=== PATIENT | female | born 1935 | race Caucasian/White ===

== ENCOUNTER 2017-02-21 16:40 | Inpatient (IN) | payer OTHER ==
--- NOTE | 2017-02-21 17:12 | EDPHY ---
H & P Stated Complaint: pt concerned for hypertension, no hx of, no s/s or other complaints HPI/ROS: CHIEF COMPLAINT: High blood pressure and lightheaded HISTORY OF PRESENT ILLNESS: This is a pleasant 81-year-old female presenting to the emergency department complaining of high blood pressure. Patient states she went to [facility] this morning had her blood pressure checked which was 196/84, denies any history of hypertension. patient also reports concerning intermittent episodes of feeling lightheadedness over the past couple of days she did start on new medication oxybutynin 5 mg and zolpidem 5 mg x 1 1/2 wks ago. Patient denies any shortness of breath no headache no blurred vision no nausea vomiting or diarrhea REVIEW OF SYSTEMS: Constitutional: No fever, no chills. No changes in normal ADLs Eyes: No discharge. No blurred vision ENT: No sore throat. Cardiovascular: No chest pain, no palpitations. Respiratory: No cough, no shortness of breath. Gastrointestinal: No abdominal pain, no vomiting. Genitourinary: No hematuria. Urinary frequency Musculoskeletal: No back pain. Skin: No rashes. Neurological: No headache. Intermittent episodes of lightheadedness Source: Patient, Family - Personal History Current Tetanus/Diphtheria Vaccine: Unsure Current Tetanus Diphtheria and Acellular Pertussis (TDAP): Unsure - Medical/Surgical History Hx Asthma: No Hx Chronic Respiratory Disease: No Hx Diabetes: No Hx Cardiac Disease: No Hx Renal Disease: No Hx Cirrhosis: No Hx Alcoholism: No Hx HIV/AIDS: No Hx Splenectomy or Spleen Trauma: No Other PMH: denies. bladder hyperactivity - Social History Smoking Status: Never smoked - Physical Exam Exam: General Appearance: Alert, no distress. Eyes: Pupils equal and round no pallor or injection. ENT, Mouth: Mucous membranes moist. Respiratory: There are no retractions, lungs are clear to auscultation. Cardiovascular: Regular rate and rhythm. Gastrointestinal: Abdomen is soft and nontender, no masses, bowel sounds normal. Neurological: No focal deficits. Ambulatory without gait disturbance Skin: Warm and dry, no rashes. Musculoskeletal: Neck is supple nontender. Extremities: symmetrical, full range of motion. Psychiatric: Patient is oriented X 3, there is no agitation. Constitutional: Initial Vital Signs Temperature (C) 36.5 C 02/21/17 16:45 Heart Rate 68 02/21/17 16:45 Respiratory Rate 16 02/21/17 16:45 Blood Pressure 190/98 H 02/21/17 16:45 O2 Sat (%) 97 02/21/17 16:45 O2 Delivery Mode Room Air Allergies/Adverse Reactions: influenza virus vaccine, specific [Influenza Virus Vacc,Specific] Allergy ( Verified 08/10/13 22:37) Home Medications: Medication Instructions Recorded Ambien 02/21/17 Oxybutynin 02/21/17 Medical Decision Making ED Course/Re-evaluation: Discussed ED plan of care with patient: EKG, CBC, BMP, troponin, UA. 174: EKG impression 12 lead sinus rhythm 1929: Discussed results with patient recommendation the patient admitted due to sodium 114, i-STAT for sodium 120 urine sodium and urine osmolality added. Patient did report that she has had an increase in thirst increasing overactive bladder that is why her primary care physician placed her on oxybutynin 1939: Spoke with Dr. Dey patient admitted to [facility] for hyponatremia. Discussed this plan with patient and family Differential Diagnosis: Other differential diagnosis considered but not limited to electrolyte imbalance , abnormal EKG, and generalized weakness - Data Points Laboratory Results: Laboratory Results 02/21/17 18:24 02/21/17 18:24 02/21/17 02/21/17 02/21/17 19:13 18:24 18:24 WBC 8.09 10^3/uL 10^3/uL (3.80-9.50) RBC 4.14 10^6/uL L 10^6/uL (4.18-5.33) Hgb 11.7 g/dL L g/dL (12.6-16.3) POC Hgb 14.6 gm/dL gm/dL (12.6-16.3) Hct 33.3 % L % (38.0-47.0) POC Hct 43 % % (38-47) MCV 80.4 fL L fL (81.5-99.8) MCH 28.3 pg pg (27.9-34.1) MCHC 35.1 g/dL g/dL (32.4-36.7) RDW 13.2 % % (11.5-15.2) Plt Count 224 10^3/uL 10^3/uL (150-400) MPV 11.7 fL fL (8.7-11.7) Neut % (Auto) 71.0 % % (39.3-74.2) Lymph % (Auto) 14.1 % L % (15.0-45.0) Ellsworth % (Auto) 12.9 % % (4.5-13.0) Eos % (Auto) 0.9 % % (0.6-7.6) Baso % (Auto) 0.9 % % (0.3-1.7) Nucleat RBC Rel Count 0.0 % % (0.0-0.2) Absolute Neuts (auto) 5.75 10^3/uL 10^3/uL (1.70-6.50) Absolute Lymphs (auto) 1.14 10^3/uL 10^3/uL (1.00-3.00) Absolute Monos (auto) 1.04 10^3/uL H 10^3/uL (0.30-0.80) Absolute Eos (auto) 0.07 10^3/uL 10^3/uL (0.03-0.40) Absolute Basos (auto) 0.07 10^3/uL 10^3/uL (0.02-0.10) Absolute Nucleated RBC 0.00 10^3/uL 10^3/uL (0-0.01) Immature Gran % 0.2 % % (0.0-1.1) Immature Gran # 0.02 10^3/uL 10^3/uL (0.00-0.10) POC Sodium 120 mEq/L L mEq/L (134-144) Sodium 114 mEq/L L* mEq/L (134-144) POC Potassium 3.9 mEq/L mEq/L (3.3-5.0) Potassium 4.0 mEq/L mEq/L (3.5-5.2) POC Chloride 83 mEq/L L mEq/L (97-110) Chloride 85 mEq/L L mEq/L (97-110) Carbon Dioxide 20 mEq/l L mEq/l (22-31) Anion Gap 9 mEq/L mEq/L (8-16) POC BUN 4 mg/dL L mg/dL (7-23) BUN 6 mg/dL L mg/dL (7-23) Creatinine 0.6 mg/dL mg/dL (0.6-1.0) POC Creatinine 0.5 mg/dL L mg/dL (0.6-1.0) Estimated GFR > 60 Glucose 89 mg/dL mg/dL (70-100) POC Glucose 101 mg/dL H mg/dL (70-100) Calcium 8.9 mg/dL mg/dL (8.5-10.4) Total Bilirubin 1.2 mg/dL mg/dL (0.1-1.4) AST 35 IU/L IU/L (14-46) ALT 36 IU/L IU/L (9-52) Alkaline Phosphatase 102 IU/L IU/L (38-126) Troponin I < 0.012 ng/mL ng/mL (0-0.034) Total Protein 6.9 g/dL g/dL (6.3-8.2) Albumin 4.1 g/dL g/dL (3.5-5.0) Urine Color Urine Appearance Urine pH Ur Specific Tiger Urine Protein Urine Ketones Urine Blood Urine Nitrate Urine Bilirubin Urine Urobilinogen Ur Leukocyte Esterase Urine Osmolality Ur Random Sodium Urine Glucose 02/21/17 02/21/17 17:00 17:00 WBC RBC Hgb POC Hgb Hct POC Hct MCV MCH MCHC RDW Plt Count MPV Neut % (Auto) Lymph % (Auto) Ellsworth % (Auto) Eos % (Auto) Baso % (Auto) Nucleat RBC Rel Count Absolute Neuts (auto) Absolute Lymphs (auto) Absolute Monos (auto) Absolute Eos (auto) Absolute Basos (auto) Absolute Nucleated RBC Immature Gran % Immature Gran # POC Sodium Sodium POC Potassium Potassium POC Chloride Chloride Carbon Dioxide Anion Gap POC BUN BUN Creatinine POC Creatinine Estimated GFR Glucose POC Glucose Calcium Total Bilirubin AST ALT Alkaline Phosphatase Troponin I Total Protein Albumin Urine Color PALE YELLOW Urine Appearance CLEAR Urine pH 7.0 (5.0-7.5) Ur Specific Tiger 1.002 (1.002-1.030) Urine Protein NEGATIVE (NEGATIVE) Urine Ketones NEGATIVE (NEGATIVE) Urine Blood NEGATIVE (NEGATIVE) Urine Nitrate NEGATIVE (NEGATIVE) Urine Bilirubin NEGATIVE (NEGATIVE) Urine Urobilinogen NEGATIVE EU EU (0.2-1.0) Ur Leukocyte Esterase NEGATIVE (NEGATIVE) Urine Osmolality 960 mosmo/kg H mosmo/kg (300-900) Ur Random Sodium 17 mEq/L L mEq/L (30-90) Urine Glucose NEGATIVE (NEGATIVE) Point of Care Test Results: 02/21/17 19:13 POC Sodium 120 L POC Potassium 3.9 POC Chloride 83 L POC BUN 4 L POC Creatinine 0.5 L POC Glucose 101 H Departure - Departure Disposition: [facility] Inpatient Acute Clinical Impression: Hyponatremia Condition: Good
[2017-02-21 17:19] LABS: COLOR PALE YELLOW; LEUKOCYTE ESTERASE,URINE NEGATIVE (NEGATIVE); NITRITE,URINE NEGATIVE (NEGATIVE)
--- NOTE | 2017-02-21 17:47 | CPEKG ---
Heart Rate: 64 RR Interval: 938 P-R Interval: 148 QRSD Interval: 96 QT Interval: 416 QTC Interval: 430 P Savannah: 77 QRS Savannah: 60 T Wave Savannah: 51 EKG Severity - NORMAL ECG - EKG Impression: SINUS RHYTHM Electronically Signed By: Juan J Hernandez 21-Feb-2017 18:53:59
[2017-02-21 18:37] LABS: % IMMATURE GRANULYOCYTES 0.2 % (0.0-1.1); ABSOLUTE IMMATURE GRANULOCYTES 0.02 10^3/uL (0.00-0.10); ADD DIFF? NO; ADD MORPH? NO; ADD SCAN? NO; ATYPICAL LYMPHOCYTE FLAG 0 (0-99); FRAGMENT RBC FLAG 0 (0-99); HEMATOCRIT 33.3 % (38.0-47.0); HEMOGLOBIN 11.7 g/dL (12.6-16.3); LEFT SHIFT FLG 0 (0-99); LIPEMIA HEMOLYSIS FLAG 90 (0-99); MEAN CELL HEMOGLOBIN 28.3 pg (27.9-34.1); MEAN CELL HEMOGLOBIN CONCENTR. 35.1 g/dL (32.4-36.7); MEAN CELL VOLUME 80.4 fL (81.5-99.8); MEAN PLATELET VOLUME 11.7 fL (8.7-11.7); PLATELET CLUMPS FLAG 0 (0-99); PLATELET COUNT 224 10^3/uL (150-400); RED BLOOD CELL COUNT 4.14 10^6/uL (4.18-5.33); RED CELL DISTRIBUTION WIDTH 13.2 % (11.5-15.2)
[2017-02-21 18:45] LABS: ALANINE AMINOTRANSFERASE 36 IU/L (9-52); ALBUMIN 4.1 g/dL (3.5-5.0); ALKALINE PHOSPHATASE 102 IU/L (38-126); ANION GAP 9 mEq/L (8-16); ASPARTATE AMINOTRANSFERASE 35 IU/L (14-46); BILIRUBIN,TOTAL 1.2 mg/dL (0.1-1.4); CALCIUM 8.9 mg/dL (8.5-10.4); CARBON DIOXIDE 20 mEq/l (22-31); CHLORIDE 85 mEq/L (97-110); CREATININE 0.6 mg/dL (0.6-1.0); GLOMERULAR FILTRATION RATE > 60; GLUCOSE 89 mg/dL (70-100); TOTAL PROTEIN 6.9 g/dL (6.3-8.2)
[2017-02-21 18:52] LABS: SODIUM 114 mEq/L (134-144)
[2017-02-21 18:56] LABS: TROPONIN I < 0.012 ng/mL (0-0.034)
[2017-02-21 23:14] LABS: ANION GAP 9 mEq/L (8-16); CALCIUM 9.3 mg/dL (8.5-10.4); CARBON DIOXIDE 22 mEq/l (22-31); CHLORIDE 88 mEq/L (97-110); CREATININE 0.6 mg/dL (0.6-1.0); GLOMERULAR FILTRATION RATE > 60; GLUCOSE 89 mg/dL (70-100); POTASSIUM 3.8 mEq/L (3.5-5.2)
[2017-02-21] MEDS ORDERED: ONDANSETRON 4 MG/2 ML VIAL IVP PRN (23:37)
[2017-02-21] MEDS ORDERED: ONDANSETRON DISINTEGRATING 4 MG TAB PO PRN (23:37)
[2017-02-21 23:48] LABS: SODIUM 119 mEq/L (134-144)
[2017-02-21] MEDS: hydrALAZINE 20 MG/ML VIAL IVP PRN (23:57)
[2017-02-22] MEDS: ACETAMINOPHEN 325 MG TAB PO PRN ×3 (00:02→22:41)
[2017-02-22] MEDS: NS 1,000 ML IV SCH ×2 (00:33→20:43)
[2017-02-22] MEDS: traZODone 50 MG TAB PO PRN ×2 (01:10→21:31)
--- NOTE | 2017-02-22 01:44 | GHP ---
[f rep st] HISTORY AND PHYSICAL DATE OF ADMISSION: 02/21/2017 CHIEF COMPLAINT: High blood pressure. HISTORY OF PRESENT ILLNESS: This is an 81-year-old female, who does not really have much in the way of chronic medical problems. Apparently, she has been under a lot of stress and has not been sleep ing well, and has been urinating a lot at night. She was started on oxybutynin and Ambien about a w habematolel and a half ago. She went to the pharmacist today and had her blood pressure checked, and it was high at 196/84, and she was told to come to the emergency department. She is feeling a little bit lightheaded, but otherwise has no other complaints. She does drink a large amount of water in the m orning, about 5 glasses, but says she does not drink a lot a water during the rest of the day. She continues to urine a lot at night. She denies any chest pain or shortness of breath. No fevers or chills. No dysuria. REVIEW OF SYSTEMS: A 10-point review of systems was obtained, and they are negative. PAST MEDICAL HISTORY: None. MEDICATIONS: Oxybutynin and Ambien. SOCIAL HISTORY: No smoking. Is , is under a lot of stress. FAMILY HISTORY: Both parents are . PHYSICAL EXAM: VITAL SIGNS: Afebrile, blood pressure is 213/77, heart rate 65, oxygen sa turation 96% on room air. GENERAL: Patient is well developed. No apparent distress. HEENT: Ana cteric sclerae. Extraocular movements intact. Moist mucous membranes. NECK: Supple. No thyromeg bria. LUNGS: Good effort. Clear to auscultation bilaterally. CARDIOVASCULAR: Regular rate and rh ythm, 2/6 systolic murmur heard best at the right upper sternal border. ABDOMEN: Positive bowel so unds. Soft, nontender, nondistended. No hepatosplenomegaly. EXTREMITIES: No clubbing, cyanosis, or edema. SKIN: Without rash. Warm, dry, intact. NEUROLOGIC: Alert and oriented x3. Moving all 4 extremities equally. PSYCHIATRIC: Normal affect. LABORATORY DATA: Sodium is 114, creatinine is 0.6. UA is negative for urine infection. Urine sodi um is 17, with a urine osmolality of 960. ASSESSMENT: An 81-year-old female, presenting with hyponatremia and elevated blood pressure. 1. Hyponatremia. I am not sure this is related to medications. Urine sodium is low with a high os molality, suggesting volume contraction as the cause, although she is not really giving much of a hi story in support of that. Without any intervention, her sodium has gone up to 119. We are going to give her a little bit of saline tonight at 50 cc an hour. We will check another sodium in 4 hours. If this is going up too high, we will stop her fluids. We are going to discontinue both her oxybu tynin and Ambien, as this is contributing. Do not really have any recent sodiums to compare. 2. Elevated blood pressure. Again, I am not sure if this is due to medications. For the night, we will just start p.r.n. hydralazine and consider adding an oral medication in the morning. 3. Nocturia. Urine is negative for urinary tract infection. We will hold her oxybutynin. 4. Admission. Patient is being admitted under full admission status. Case was discussed with the ER physician. /[id number]/MODL
[2017-02-22 05:53] LABS: % IMMATURE GRANULYOCYTES 0.3 % (0.0-1.1); ABSOLUTE IMMATURE GRANULOCYTES 0.02 10^3/uL (0.00-0.10); ADD DIFF? NO; ADD MORPH? NO; ADD SCAN? NO; ATYPICAL LYMPHOCYTE FLAG 0 (0-99); FRAGMENT RBC FLAG 0 (0-99); HEMATOCRIT 33.7 % (38.0-47.0); HEMOGLOBIN 11.9 g/dL (12.6-16.3); LEFT SHIFT FLG 0 (0-99); LIPEMIA HEMOLYSIS FLAG 90 (0-99); MEAN CELL HEMOGLOBIN 28.3 pg (27.9-34.1); MEAN CELL HEMOGLOBIN CONCENTR. 35.3 g/dL (32.4-36.7); MEAN PLATELET VOLUME 11.8 fL (8.7-11.7); PLATELET CLUMPS FLAG 0 (0-99); PLATELET COUNT 223 10^3/uL (150-400); RED BLOOD CELL COUNT 4.21 10^6/uL (4.18-5.33); RED CELL DISTRIBUTION WIDTH 13.3 % (11.5-15.2)
[2017-02-22 06:18] LABS: ANION GAP 9 mEq/L (8-16); CALCIUM 9.4 mg/dL (8.5-10.4); CARBON DIOXIDE 22 mEq/l (22-31); CHLORIDE 90 mEq/L (97-110); CREATININE 0.7 mg/dL (0.6-1.0); GLOMERULAR FILTRATION RATE > 60; GLUCOSE 85 mg/dL (70-100); POTASSIUM 4.1 mEq/L (3.5-5.2); SODIUM 121 mEq/L (134-144)
[2017-02-22 08:36] LABS: ANION GAP 7 mEq/L (8-16); CALCIUM 9.1 mg/dL (8.5-10.4); CARBON DIOXIDE 22 mEq/l (22-31); CHLORIDE 92 mEq/L (97-110); CREATININE 0.6 mg/dL (0.6-1.0); GLOMERULAR FILTRATION RATE > 60; GLUCOSE 84 mg/dL (70-100); POTASSIUM 4.4 mEq/L (3.5-5.2); SODIUM 121 mEq/L (134-144)
[2017-02-22] MEDS: ENOXAPARIN 40 MG/0.4 ML SYR SC SCH (08:37)
--- NOTE | 2017-02-22 10:44 | HOSPPROG ---
Hospitalist Progress Note Assessment/Plan: This is an 81 y/o female new to my care 02/22 presenting with #weakness in the setting of severe hyponatremia #hyponatremia severe likely due to poor solute intake #anorexia likely due to hyponatremia but may need further workup if not improving #resolved hypertensive crisis #lightheadedness secondary to above Plan: -continue to closely monitor Na Q6 -cont ns 50ml/hr -monitor bp dispo: continue inpatient care given persistent weakness Subjective: still light headed. no chest pain. no fever or chills. not feeling strong enough to go home Objective: Vital Signs Temp Pulse Resp BP Pulse Ox 36.8 C 665 H 16 123/69 H 96 02/22/17 08:00 02/22/17 08:00 02/22/17 08:00 02/22/17 08:00 02/22/17 08:00 Laboratory Results 02/22/17 05:40 02/22/17 08:08 02/21/17 02/22/17 02/23/17 05:59 05:59 05:59 Intake Total 300 Output Total 800 140 Balance -500 -140 - Physical Exam Constitutional: no apparent distress, appears nourished, not in pain Ears, Nose, Mouth, Throat: dry mucous membranes Cardiovascular: regular rate and rhythym, no murmur, rub, or gallop, systolic murmur (rusb ) Respiratory: no respiratory distress, no rales or rhonchi, clear to auscultation Skin: no rashes or abrasions, no fluctuance, no induration ICD10 Worksheet Patient Problems: Problems Problem Status Onset Epiglottitis Acute GI bleed Acute Hyponatremia Acute
[2017-02-22] MEDS: hydrALAZINE 20 MG/ML VIAL IVP PRN (17:53)
[2017-02-23 06:20] LABS: ANION GAP 8 mEq/L (8-16); CALCIUM 9.2 mg/dL (8.5-10.4); CARBON DIOXIDE 22 mEq/l (22-31); CHLORIDE 101 mEq/L (97-110); CREATININE 0.7 mg/dL (0.6-1.0); GLOMERULAR FILTRATION RATE > 60; GLUCOSE 82 mg/dL (70-100); POTASSIUM 4.6 mEq/L (3.5-5.2); SODIUM 131 mEq/L (134-144)
[2017-02-23] MEDS: ENOXAPARIN 40 MG/0.4 ML SYR SC SCH (08:26)
--- NOTE | 2017-02-23 11:29 | HOSPPROG ---
Hospitalist Progress Note Assessment/Plan: This is an 81 y/o female new to my care 02/22 presenting with #weakness in the setting of severe hyponatremia #hyponatremia severe likely due to poor solute intake. 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 reports major stress at home due to her caring for her . she is now eating Objective: Vital Signs Temp Pulse Resp BP Pulse Ox 36.8 C 71 16 159/74 H 96 02/23/17 07:59 02/23/17 07:59 02/23/17 07:59 02/23/17 07:59 02/23/17 07:59 Laboratory Results 02/22/17 05:40 02/23/17 04:34 02/22/17 02/23/17 02/24/17 05:59 05:59 05:59 Intake Total 300 1300 Output Total 800 1841 800 Balance -500 -541 -800 - Physical Exam Constitutional: no apparent distress, appears nourished, not in pain Cardiovascular: regular rate and rhythym, no murmur, rub, or gallop, No edema Respiratory: no respiratory distress, no rales or rhonchi, clear to auscultation Gastrointestinal: normoactive bowel sounds, soft, non-tender abdomen, no palpable masses ICD10 Worksheet Patient Problems: Problems Problem Status Onset Epiglottitis Acute GI bleed Acute Hyponatremia Acute
[2017-02-23] MEDS: LISINOPRIL 5 MG TAB PO SCH (12:28)
[2017-02-23] MEDS: hydrALAZINE 20 MG/ML VIAL IVP PRN (17:49)
[2017-02-23] MEDS ORDERED: OXYBUTYNIN CHLORIDE 5 MG TAB PO SCH (21:00)
[2017-02-24 05:25] LABS: ANION GAP 6 mEq/L (8-16); CALCIUM 9.3 mg/dL (8.5-10.4); CARBON DIOXIDE 22 mEq/l (22-31); CHLORIDE 104 mEq/L (97-110); CREATININE 0.7 mg/dL (0.6-1.0); GLOMERULAR FILTRATION RATE > 60; GLUCOSE 84 mg/dL (70-100); POTASSIUM 4.2 mEq/L (3.5-5.2); SODIUM 132 mEq/L (134-144)
[2017-02-24 08:13] VITALS: BP 140/72; PULSE 69; RESP 16; TEMP 98.4; O2SAT 96
[2017-02-24] MEDS ORDERED: SOLIFENACIN SUCCINATE 5 MG TAB PO SCH (09:00)
[2017-02-24] MEDS: LISINOPRIL 5 MG TAB PO SCH (09:23)
[2017-02-24] MEDS: ENOXAPARIN 40 MG/0.4 ML SYR SC SCH (09:23)
--- NOTE | 2017-02-24 09:52 | PDIAF ---
- Diagnosis Diagnosis: hyponatremia Code Status: Full Code - Medication Management Discharge Medications: Medications to Continue on Transfer Oxybutynin Chloride 5 mg PO HS 02/21/17 [Last Taken 02/18/17] Solifenacin Succinate [Vesicare 5 MG (*)] 1 each PO DAILY 02/22/17 [Last Taken Unknown] Lisinopril [Zestril 5 mg (*)] 5 mg PO DAILY #1 tab 02/24/17 [Last Taken Unknown] traZODone [traZODONE 50MG (*)] 50 mg PO HS PRN #1 tab 02/24/17 [Last Taken Unknown] Discharge Medications: Refer to the Discharge Home Medication list for PRN reason. - Orders Services needed: Physical Therapy, Occupational Therapy - Follow Up Care Current Providers and Referrals: MADINA HEALY [Primary Care Provider] - As per Instructions
--- NOTE | 2017-02-24 11:28 | GDS ---
[f rep st] DISCHARGE SUMMARY DISCHARGE DIAGNOSES: 1. Hyponatremia. 2. Hypertension, uncontrolled. 3. Urinary retention. HISTORY: This is an 81-year-old female who presented with high blood pressure. HOSPITAL COURSE: Patient was also found to be hyponatremic. Urine sodium was consistent with /dehydration. She was given gentle IV fluids. Sodium improved slowly. She was started on a s mall dose of lisinopril to control her blood pressure. She is feeling well and will be going to a [facility] for rehab. Greater than 30 minutes was spent on discharge. /[id number]/MODL
== END 2017-02-24 12:30 | DRG 641 ==
LOC: F3N 21:07
PROVIDERS: ADMIT Internal Medicine; ATTEND Internal Medicine
DX: E87.1 Hypo-osmolality and hyponatremia (principal); I10 Essential (primary) hypertension; R33.9 Retention of urine, unspecified
CPT/HCPCS: 82947-QW; J0360; J1650

== ENCOUNTER 2018-05-23 08:03 | Inpatient (IN) | payer OTHER ==
[2018-05-23] MEDS ORDERED: ONDANSETRON 4 MG/2 ML VIAL IVP ONE (08:58)
[2018-05-23] MEDS ORDERED: FAMOTIDINE 20 MG/NACL 50 ML IV ONE (08:58)
[2018-05-23] MEDS ORDERED: NS 1,000 ML IV ONE (08:58)
--- NOTE | 2018-05-23 09:15 | EDPHY ---
H & P Time Seen by Provider: 05/23/18 08:57 HPI/ROS: HPI Painful swallowing, nausea, loss of appetite. 82-year-old female by private vehicle with her . This patient reports that since last night she has had painful swallowing. She reports that she has not eaten or had much to drink since yesterday afternoon. She describes this sensation as pain in her throat when she swallows. She is handling her secretions and states that she is able to swallow her saliva. There is no history of eating steak or obstructive esophageal food bolus. She describes her throat is being sore. She has not had a fever. She describes nausea the because of this is tried to self induce vomiting. She denies significant abdominal pain. No bloody or melenic stool. ROS: Constitutional: No fever, no chills. No weakness. Eyes: No discharge. No changes in vision. ENT: As above. No nasal congestion or rhinorrhea. Respiratory: No cough. No shortness of breath. Cardiac: No chest pain, no palpitations. Gastrointestinal: No abdominal pain, no vomiting, no diarrhea. As above. Genitourinary: No hematuria. No dysuria or increased frequency with urination. Musculoskeletal: No back pain. No neck pain. No myalgias or arthralgias. Skin: No rashes. Neurological: No headache. No focal weakness or altered sensation. Past medical history: Insomnia, hypertension, bladder hyperactivity. 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 Nonsmoker. No alcohol. Lives with her . Physical Exam: General Appearance: Alert, no distress. This patient is responding to questions appropriately and in full sentences. This patient appears well- hydrated and well-nourished. Eyes: Pupils equal and round no pallor or injection. No lid edema, erythema or injection. ENT, Mouth: Mucous membranes are moist. The pharyngeal tissues are unremarkable. No edema or swelling. No asymmetry suggestive of abscess. No exudates. Mild erythema of the posterior pharynx. No stridor on auscultation of her neck. No voice changes. Respiratory: There are no retractions, lungs are clear to auscultation with good air movement bilaterally. Cardiovascular: Regular rate and rhythm. No murmur. Gastrointestinal: Abdomen is soft and nontender, no masses, bowel sounds normal. No focal tenderness at McBurney's point. No Landa sign. Neurological: Motor sensory function is grossly intact. Cranial nerves are normal. Gait is normal. Skin: Warm and dry, no rashes. Musculoskeletal: Neck is supple and nontender. No cervical, submental, submandibular lymphadenopathy. Extremities are symmetrical. All joints range without pain or impingement. Psychiatric: No agitation. No depression. Database: EKG: EKG time is 9:59 a.m.; EKG shows a narrow complex normal sinus rhythm with a ventricular rate of 58. The OK, QRS, QT intervals are within normal limits. There are no ST-T wave changes indicative of ischemic or injury pattern. No evidence of right heart strain. Interpreted by me. Imaging: Soft tissue next x-ray: Negative. Interpreted by me. CT soft tissue neck with contrast: No evidence of epiglottitis or other airway compromise. She does have findings consistent with esophagitis. Results were discussed with staff radiologist Dr. Pee Hess. Procedures: Emergency department course: Triage vital signs reviewed. She is hypertensive. Vital signs otherwise normal. IV placed. She was placed on a monitor. She was started on IV normal saline with 500 cc to 1 L to be given over the next hour. For her nausea she was given 4 mg of IV Zofran and 20 mg of IV Pepcid. 10:10 a.m., review of patient's medical records indicates a history of epiglottitis from 2012. For initial soft tissue x-ray of the neck she showed mild suspicion of possible early epiglottitis. This was then confirmed with a contrast enhanced CT soft tissue neck. She was treated with Unasyn. She was intubated in the ICU. She was then discharged on Augmentin. Today's x-ray soft tissue neck was negative for any significant pathology. CT soft tissue neck will be obtained. 10:15 a.m., patient re-evaluated. Resting comfortably. No stridor. She still states that she has painful swallowing. I explained that we would be sending her for CT soft tissue of her neck. She will be admitted to the hospitalist service. She endorses this plan. 10:45 a.m., case discussed with hospitalist. We will admit the patient to the step-down unit for treatment of hyponatremia. CT scan did not show evidence of epiglottitis. Patient has painful swallowing is likely secondary to esophagitis. The patient's remaining emergency department course under my care has been uneventful. She was admitted to the step-down unit in stable condition. Differential Diagnosis: The differential diagnosis on this patient includes but is not limited to pharyngitis, epiglottitis, esophageal dysmotility. This represents a partial list of diagnoses considered. These considerations are based on history, physical exam, past history, reassessment and diagnostic testing. Smoking Status: Never smoked Constitutional: Initial Vital Signs Temperature (C) 36.8 C 05/23/18 08:09 Heart Rate 56 L 05/23/18 08:09 Respiratory Rate 18 05/23/18 08:09 Blood Pressure 172/92 H 05/23/18 08:09 O2 Sat (%) 96 05/23/18 08:09 O2 Delivery Mode Room Air O2 (L/minute) 0.5 Allergies/Adverse Reactions: influenza virus vaccine, specific [Influenza Virus Vacc,Specific] Allergy ( Verified 05/23/18 08:08) Home Medications: Medication Instructions Recorded Oxybutynin Chloride 10 mg PO HS 02/21/17 Aspirin [Aspirin 325 mg (*)] 325 mg PO DAILY PRN 05/23/18 Atenolol [Tenormin 25 mg (*)] 25 mg PO DAILY 05/23/18 Cyanocobalamin [Vitamin B12 (*)] 1,000 mcg PO DAILY 05/23/18 Lisinopril [Zestril 20 mg (*)] 20 mg PO DAILY 05/23/18 Medical Decision Making - Data Points Laboratory Results: Laboratory Results 05/24/18 04:46 05/24/18 04:46 05/24/18 05/23/18 09:54 Unknown Ur Random Sodium 35 mEq/L mEq/L (30-90) Group A Strep DNA NEGATIVE (NEGATIVE) Medications Given: Atenolol (Tenormin) 25 mg PO DAILY VIKTOR Stop: 11/20/18 08:59 Last Admin: 05/24/18 13:27 Dose: 25 mg Benzocaine (Hurricaine Beatty) 1 each MM Q6HRS PRN PRN Reason: Sore Throat Stop: 11/19/18 13:49 Last Admin: 05/23/18 14:04 Dose: 1 each Enoxaparin Sodium (Lovenox) 40 mg SC DAILY VIKTOR Stop: 11/20/18 08:59 Last Admin: 09/12/18 13:39 Dose: 40 mg Fluconazole (Diflucan) 100 mg PO DAILY VIKTOR Stop: 06/22/18 17:14 Last Admin: 05/24/18 14:14 Dose: Not Given Hydralazine HCl (Apresoline) 10 mg IVP Q6 PRN PRN Reason: SBP>160 Stop: 11/19/18 13:50 Last Admin: 05/24/18 13:55 Dose: 10 mg Hydromorphone HCl (Dilaudid) 0.2 - 0.4 mg IVP Q2H PRN PRN Reason: Pain, Severe Unable to Take PO Stop: 06/02/18 13:16 Last Admin: 05/24/18 18:36 Dose: 0.2 mg Sodium Chloride (Ns) 1,000 mls @ 100 mls/hr IV CONT VIKTOR Stop: 11/19/18 13:59 Last Admin: 05/24/18 04:48 Dose: 1,000 mls Fluconazole/Sodium Chloride (Diflucan 2mg/Ml (Premix)) 100 mls @ 100 mls/hr IV DAILY VIKTOR Stop: 06/23/18 13:29 Last Admin: 05/24/18 14:15 Dose: 100 mls Lisinopril (Zestril) 20 mg PO DAILY VIKTOR Stop: 11/20/18 08:59 Last Admin: 05/24/18 13:33 Dose: 20 mg Ondansetron HCl (Zofran) 4 mg IVP Q4H PRN PRN Reason: Nausea/Vomiting, Can't Take PO Stop: 11/19/18 13:15 Last Admin: 05/24/18 13:36 Dose: 4 mg Oxybutynin Chloride (Ditropan) 10 mg PO HS VIKTOR Stop: 11/19/18 20:59 Last Admin: 05/23/18 20:01 Dose: 10 mg Pantoprazole Sodium (Protonix) 40 mg IVP BID VIKTOR Stop: 11/19/18 13:44 Last Admin: 05/24/18 14:32 Dose: 40 mg Sucralfate (Carafate Suspension) 2 gm PO BID VIKTOR Stop: 11/19/18 20:59 Last Admin: 05/24/18 14:29 Dose: 2 gm Throat Lozenges (Cepacol Lozenge) 1 ea PO PRN PRN PRN Reason: Sore Throat Stop: 11/20/18 13:05 Last Admin: 05/24/18 17:19 Dose: 1 ea Vitamin B Complex (Vitamin B12) 1,000 mcg PO DAILY VIKTOR Stop: 11/20/18 08:59 Last Admin: 05/24/18 13:38 Dose: 1,000 mcg Discontinued Medications Fentanyl (Sublimaze) 75 mcg IVP .STK-MED ONE Stop: 05/23/18 17:25 Last Admin: 05/23/18 17:24 Dose: 75 mcg Hydromorphone HCl (Dilaudid) 0.4 mg IVP Q2H PRN PRN Reason: Pain, Severe Unable to Take PO Stop: 06/02/18 13:16 Last Admin: 05/23/18 13:28 Dose: 0.4 mg Sodium Chloride (Ns) 1,000 mls @ 0 mls/hr IV EDNOW ONE; Wide Open PRN Reason: Protocol Stop: 05/23/18 08:59 Last Admin: 05/23/18 09:11 Dose: 1,000 mls Famotidine/Sodium Chloride (Pepcid 20 Mg (Premix)) 50 mls @ 200 mls/hr IV EDNOW ONE Stop: 05/23/18 09:12 Last Admin: 05/23/18 09:11 Dose: 50 mls Sodium Chloride (Ns) 500 mls @ 25 mls/hr IV ONCALL ONE Stop: 05/24/18 12:30 Last Admin: 05/23/18 16:34 Dose: 500 mls Midazolam HCl (Versed) 3 mg IVP .STK-MED ONE Stop: 05/23/18 17:25 Last Admin: 05/23/18 17:24 Dose: 3 mg Ondansetron HCl (Zofran) 4 mg IVP EDNOW ONE Stop: 05/23/18 08:59 Last Admin: 05/23/18 09:12 Dose: 4 mg Departure - Departure Disposition: [facility] Acute Clinical Impression: Painful swallowing, Hyponatremia, Esophagitis Condition: Fair
[2018-05-23 09:17] LABS: PLATELET COUNT 242 10^3/uL (150-400)
[2018-05-23] MEDS ORDERED: IOPAMIDOL (ISOVUE-300) 100 ML BTL ONE (10:16)
[2018-05-23] MEDS ORDERED: HYDROmorphONE/DILAUDID 1 MG/ML INJ IVP PRN ×2 (13:17→13:50)
[2018-05-23] MEDS: ONDANSETRON 4 MG/2 ML VIAL IVP PRN (13:28)
[2018-05-23] MEDS ORDERED: BENZOCAINE UNIT DOSE SPRAY HURRICAINE MM PRN (13:50)
[2018-05-23] MEDS: PANTOPRAZOLE SODIUM 40 MG VIAL IVP SCH ×2 (14:04→20:01)
[2018-05-23] MEDS: NS 1,000 ML IV SCH (14:12)
--- NOTE | 2018-05-23 14:49 | GHP ---
DATE OF ADMISSION: 05/23/2018 CHIEF COMPLAINT: Odynophagia. HISTORY: The patient is an 82-year-old female, who has had very painful swallow for the last 2 days. She has been unable eat anything, cannot even drink water. Says it immediately causes coughing. S he has no trouble breathing. She is still able to swallow her own saliva. She denies any abdominal pain or shortness of breath. PAST MEDICAL HISTORY: 1. Hypertension. 2. Duodenal ulcer with GI bleed. 3. Erosive esophagitis. 4. History of acute epiglottitis requiring intubation. MEDICATIONS: Please see computer record for full detailed list. ALLERGIES: Influenza vaccine. SOCIAL HISTORY: Never been a smoker. She does drink occasional wine. She lives with her . REVIEW OF SYSTEMS: Complete review of systems obtained. Review of systems negative for constitution al, HEENT, GI, pulmonary vascular, , hematology, skin, musculoskeletal, endocrine, and psych except for positives and negatives as in HPI. FAMILY HISTORY: Reviewed, noncontributory to presenting complaint. PHYSICAL EXAMINATION: GENERAL: Well-developed, well-nourished female, in no acute distress. VITAL SIGNS: Temperature is 36.5, pulse 65, blood pressure 177/70, satting 94% on room air. EYE: Normal conjunctivae. Pupils react to light. ENT: Normal ears, nose. Hearing intact. Normal lips and jyothi th. Oropharynx moist. NECK: Trachea midline. No thyromegaly. CHEST: Normal respiratory effort. LUNGS: Clear to auscultation bilaterally. CARDIOVASCULAR: Regular rate and rhythm. No murmur. N o lower extremity edema. ABDOMEN: Soft, nontender. No hepatosplenomegaly. SKIN: Warm, dry, intac t. No rash. MUSCULOSKELETAL: No cyanosis or clubbing. Strength 5/5 upper and lower extremities. NEURO: Cranial nerves intact. Normal sensation light touch. PSYCH: Alert and oriented x3. Normal mood and affect. Normal judgment and insight. Normal memory. LABORATORY DATA: White count 15.56, hematocrit 37.2, platelets 242. Sodium 123, potassium 4.0, chlo ride 83, bicarb 27, BUN 13, creatinine 0.7, glucose 127, AST 57, ALT 53. Urinalysis is negative. Gr oup A strep is negative. EKG viewed by me. My personal interpretation is normal sinus rhythm. No S T-T wave changes. Neck CT shows esophagitis in the cervical region below the epiglottis. ASSESSMENT/PLAN: 1. Esophagitis, this is sub epiglottal. She does have a history of erosive esophagitis but is no lo nger on a proton pump inhibitor. I spoke with Dr. Orozco of Gastroenterology and they will see her in consultation and consider EGD. We will start her on IV proton pump inhibitor. We will keep her n.p. o. for now. 2. Hyponatremia, I suspect she is hypovolemic due to inability to take p.o. We will hydrate with IV normal saline and recheck in the morning. 3. Hypertension, continue atenolol and lisinopril. CODE STATUS: Full. ADMISSION STATUS: Will admit to observation. Reevaluate tomorrow regarding ongoing need for hospita lization. DVT PROPHYLAXIS: She is high risk. Will place on subcu Lovenox. /[id number]/MODL
--- NOTE | 2018-05-23 15:13 | CPEKG ---
Test Reason : OPEN Blood Pressure : / mmHG Vent. Rate : 058 BPM Atrial Rate : 058 BPM P-R Int : 152 ms QRS Dur : 114 ms QT Int : 455 ms P-R-T Axes : 076 077 064 degrees QTc Int : 447 ms Sinus rhythm Confirmed by Russell Marti ([id number]) on 05/23/2018 3:12:42 PM Referred By: Confirmed By:Russell Marti
[2018-05-23] MEDS: hydrALAZINE 20 MG/ML VIAL IVP PRN (15:44)
[2018-05-23] MEDS ORDERED: NS 500 ML IV ONE (16:31)
[2018-05-23] MEDS ORDERED: MIDAZOLAM 2 MG/2 ML VIAL ONE (16:33)
[2018-05-23] MEDS ORDERED: fentaNYL 100 MCG/2 ML INJ ONE (16:34)
--- NOTE | 2018-05-23 16:55 | PDPROPOC ---
Sedation Plan of Care Sedation Plan of Care: vital signs stable, mental status noted, patient educated of risks, benefits, alternatives, patient can tolerate sedation ASA Classification: ASA 1 Planned drugs: fentanyl, midazolam Mallampati Score: Class 1 Mallampati Reference Image: Patient passed 3-3-2 rule?: Yes
[2018-05-23] MEDS ORDERED: MIDAZOLAM 2 MG/2 ML VIAL IVP ONE (17:24)
[2018-05-23] MEDS ORDERED: fentaNYL 100 MCG/2 ML INJ IVP ONE (17:24)
--- NOTE | 2018-05-23 17:25 | GCON ---
GI INPATIENT CONSULTATION DATE OF CONSULTATION: 05/23/2018 REFERRING PHYSICIAN: Rosemarie Avalos MD I was kindly requested to see the patient by Dr. Rosemarie Avalos in consultation for a chief complaint of sore throat. She is an 82-year-old female who presented to the emergency department this morning because of high blood pressure readings at home. She mentioned some sore throat this morning. Now, she states her sore throat is only minimal. She denies dysphagia. She denies heartburn. PAST MEDICAL HISTORY: 1. As above. 2. Hypertension. 3. Duodenal ulcer in the past. 4. Apparent past history of heartburn, and possibly erosive esophagitis. 5. Past history of acute epiglottitis requiring intubation. 6. Otherwise, noncontributory. MEDICATIONS: Outpatient medications include aspirin, Tenormin, Zestril. Inpatient medications include Tenormin, Lovenox, Dilaudid as needed, Zestril, Zofran as needed, B12, Protonix 40 mg IV twice a day, IV fluids, and Ditropan. ALLERGIES: Include influenza vaccine. SOCIAL HISTORY: She is . FAMILY HISTORY: Negative for similar throat symptoms. REVIEW OF SYSTEMS: Positive pertinent review of systems as per my HPI. Otherwise, complete review of systems is negative. PHYSICAL EXAM: CONSTITUTIONAL: Nontoxic-appearing. VITAL SIGNS: Stable. SKIN: Warm, dry. EYES: Pupils equal, round, and reactive to light and accommodation. EARS, NOSE, MOUTH, and THROAT: Oropharynx without masses, moist mucosa. CARDIOVASCULAR: Normal S2, normal PMI. RESPIRATORY: Lungs clear to auscultation and percussion anteriorly. GASTROINTESTINAL: Abdomen soft, nontender. NEUROLOGIC: Grossly nonfocal, with cranial nerves grossly intact. PSYCHIATRIC: Orientation, insight appropriate. MUSCULOSKELETAL: Strength grossly normal throughout, normal station. LABORATORIES: Include a negative soft tissue x-ray. Unremarkable neck CT scan (some mild findings were mentioned regarding the esophagus, but suspect nonspecific and nonsignificant). Group-A Strep negative. White count 15.5 thousand. Normal platelet count. Sodium 123. Urinalysis negative. ASSESSMENT: 1. Sore throat this morning. Now, more minimal, but a somewhat difficult historian. PLAN: 1. Upper endoscopy, to make sure no esophageal pathology. Certainly, with her age, hypertension, history of acute epiglottitis in the past requiring intubation, etc., she is at increased risk for this procedure. However, suspect the benefits outweigh the risks, and suspect she would do well. 2. Further management depending on the above. Thank you for allowing me to help in the care of this patient. /[id number]/MODL MTDD
--- NOTE | 2018-05-23 17:26 | GIREPORT ---
[facility] Surgical Services - Endoscopy Department Patient Name: Smitha Julian Procedure Date: 05/23/2018 4:09 PM Patient Type: Inpatient Attending MD/ ER Physician: Odilon Orozco MD Procedure: Upper GI endoscopy Indications: Note dictated, consult appreciated. Odynophagia. Past duodenal ulcer di sease. Providers: Odilon Orozco [place], [facility] [place] Referring MD: Shante Ferro MD; [facility] Hospitalist service Medicines: Fentanyl 100 micrograms IV, Midazolam 4 mg IV Complications: No immediate complications. Description of Procedure: After obtaining informed consent, the endoscope was passed under direct vision. Throughout the procedure, the patient's blood pressure, pulse, and oxygen saturations were monitored continuously. The Endoscope was intro duced through the mouth, and advanced to the second part of duodenum. Findings: Mild edema seen in the throat, just above the vocal cords. Moderately severe exudative esophagitis was found in the lower third of the esophagus. Biopsies were taken with a cold forceps for histology. Diffuse mildly erythematous mucosa was found in the entire examined sto mach, with one superficial erosion in the body (do not suspect this gastritis is giving her symptoms). Biopsies were taken with a cold forceps for Helicobacter pylori testing from the antrum and cardia. The examined duodenum was normal. Estimated Blood Loss: Estimated blood loss: none. Post Op Diagnosis: - Moderately severe esophagitis. Most likely acid-peptic in nature. However, with the exudates, and acut e presentation, candidal esophagitis also possible. Recommendation: - Await pathology results to r/o rachel, but will treat empirically wi th diflucan x 1 week. - Biopsies also done for H. pylori. - agree with IV PPI bid; once taking adequate p.o., can switch to oral PPI x 8 weeks, then prn. - sucralfate 2 g slurry bid for three days, until the above PPI "kicks in." - clear liquids; as her odynophagia improves, o.k. to advance. I will sign off; I will f/u on bx results. Otherwise, please call if we can be of further help [phone] Thank you for allowing me to help in the management of this patient. Attending Participation: I personally performed the entire procedure. Pam Donald MD Odilon Orozco MD 05/23/2018 5:26:20 PM This report has been signed electronicallyPeter MD Pam Number of Addenda: 0 Note Initiated On: 05/23/2018 4:09 PM [email or web address]
--- NOTE | 2018-05-23 17:32 | ASMTCMCOM ---
CM Note CM Note Notes: 82yr old female admitted for Odynophagia, Hyponatremia, Dysphasia. She has a Hx of Epiglottitis, GIB, Esophagitis, HTN. Patient to have an EGD. Patient lives with her in [place]. CM to follow for discharge needs. Date Signed: 05/23/2018 05:31 PM Electronically Signed By:Mandy Holguin LCSW
[2018-05-23] MEDS: FLUCONAZOLE 100 MG TAB PO SCH (18:09)
[2018-05-23] MEDS: SUCRALFATE 1 GM/10 ML UDCUP PO SCH (20:00)
[2018-05-23] MEDS: OXYBUTYNIN CHLORIDE 5 MG TAB PO SCH (20:01)
[2018-05-24] MEDS: NS 1,000 ML IV SCH ×2 (04:48→21:07)
[2018-05-24 05:10] LABS: PLATELET COUNT 160 10^3/uL (150-400)
[2018-05-24] MEDS: ATENOLOL 25 MG TAB PO SCH (13:27)
[2018-05-24] MEDS: LISINOPRIL 20 MG TAB PO SCH (13:33)
[2018-05-24] MEDS: ONDANSETRON 4 MG/2 ML VIAL IVP PRN (13:36)
[2018-05-24] MEDS: CYANO/VITAMIN B12 1000 MCG TAB PO SCH (13:38)
[2018-05-24] MEDS: ENOXAPARIN 40 MG/0.4 ML SYR SC SCH (13:39)
[2018-05-24] MEDS: hydrALAZINE 20 MG/ML VIAL IVP PRN (13:55)
--- NOTE | 2018-05-24 13:59 | HOSPPROG ---
Hospitalist Progress Note Assessment/Plan: * Severe esophagitis - likely due to GERD, also possible rachel -biopsy pending -continue IV PPI and IV Diflucan -change to PO when tolerating oral * Hyponatremia - ? all hypovolemia -urine sodium pending -may need fluid restriction * HTN -atenolol, lisinopril * Cough with eating - suspect reflex triggered by esophageal disease -swallow eval pending Subjective: Still hasn't drank water or taken pills Objective: Vital Signs Temp Pulse Resp BP Pulse Ox 36.8 C 66 14 185/57 H 93 05/24/18 07:32 05/24/18 13:27 05/24/18 07:32 05/24/18 13:27 05/24/18 07:32 Laboratory Results 05/24/18 04:46 05/24/18 04:46 05/23/18 05/24/18 05/25/18 05:59 05:59 05:59 Intake Total 1931 Output Total 500 200 Balance 1431 -200 CXR viewed, my personal interpretation is - negative, a little hyperexpanded GI procedure note reviewed - severe esophagitis, likely all acid, some exudates c/w rachel - Physical Exam Constitutional: no apparent distress, appears nourished, not in pain Cardiovascular: regular rate and rhythym, no murmur, rub, or gallop Respiratory: no respiratory distress, no rales or rhonchi, clear to auscultation Gastrointestinal: normoactive bowel sounds, soft, non-tender abdomen, no palpable masses Skin: no rashes or abrasions, no fluctuance, no induration Neurologic: AAOx3, sensation intact bilaterally Psychiatric: interacting appropriately, not anxious, not encephalopathic, thought process linear ICD10 Worksheet Patient Problems: Problems Problem Status Onset Esophagitis Acute Hyponatremia Acute Painful swallowing Acute Epiglottitis Acute GI bleed Acute
[2018-05-24] MEDS: FLUCONAZOLE 100 MG TAB PO SCH (14:14)
[2018-05-24] MEDS: FLUCONAZOLE/NaCl 100 ML IV SCH (14:15)
[2018-05-24] MEDS: CEPACOL LOZENGE PO PRN ×2 (14:18→17:19)
[2018-05-24] MEDS: SUCRALFATE 1 GM/10 ML UDCUP PO SCH ×2 (14:29→20:57)
[2018-05-24] MEDS: PANTOPRAZOLE SODIUM 40 MG VIAL IVP SCH ×2 (14:32→20:58)
--- NOTE | 2018-05-24 14:57 | PDMN ---
Medical Necessity Medical necessity: Change to inpt as of 05/24/18 @ 1305. Pt meets inpt criteria per MD order and MCG M-550, Esophageal Disease. Est LOS>2MN for management of severe esophagitis likely due to GERD, possible rachel, hyponatremia (most recent Na 127), unable to tolerate PO, hypertensive 185/57. IV PPI, IV Diflucan , IVF, EGD today, bx pending, urine random sodium pending. Ongoing med nec eval/ treatment for above conditions.
--- NOTE | 2018-05-24 19:08 | ASMTCMCOM ---
CM Note CM Note Notes: Spoke with [facility] PT and patient does not have any PT needs. 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 Renae says the family has been trying to hang onto their home which is patient's only asset. They do not have the funds for assisted living or senior living home. Gave family a blue book for senior resources and encouraged Renae to get in touch with the [facility] and inquire about any staff toxicologist respite programs they might have. Patient's son, Abdias is going to talk to his step father's son to see if they can increase the current services they have. ( a service provider comes twice per week to help with his baths) No further needs at this time. CM available if new needs arise. Date Signed: 05/24/2018 03:25 PM Electronically Signed By:Malia Erickson LCSW
[2018-05-24] MEDS: OXYBUTYNIN CHLORIDE 5 MG TAB PO SCH (20:57)
[2018-05-25] MEDS: hydrALAZINE 20 MG/ML VIAL IVP PRN ×2 (00:26→23:02)
[2018-05-25 05:01] LABS: PLATELET COUNT 172 10^3/uL (150-400)
[2018-05-25] MEDS: NS 1,000 ML IV SCH ×2 (05:52→18:06)
[2018-05-25] MEDS: ENOXAPARIN 40 MG/0.4 ML SYR SC SCH (08:28)
[2018-05-25] MEDS: LISINOPRIL 20 MG TAB PO SCH (08:32)
[2018-05-25] MEDS: CYANO/VITAMIN B12 1000 MCG TAB PO SCH (08:32)
[2018-05-25] MEDS: ATENOLOL 25 MG TAB PO SCH (08:32)
[2018-05-25] MEDS: SUCRALFATE 1 GM/10 ML UDCUP PO SCH ×2 (09:41→20:12)
[2018-05-25] MEDS: PANTOPRAZOLE SODIUM 40 MG TAB PO SCH ×2 (09:42→20:12)
[2018-05-25] MEDS: FLUCONAZOLE/NaCl 100 ML IV SCH (11:27)
--- NOTE | 2018-05-25 17:24 | HOSPPROG ---
Hospitalist Progress Note Assessment/Plan: 82yo F with dysphagia secondary to severe esophagitis. This is my first encounter with the patient. Prior EGD report and GI notes reviewed. * Severe esophagitis - likely due to GERD, also possible rachel -biopsy pending -switch to PO PPI and diflucan * Hyponatremia - improving with hydration -encourage PO intake, recheck in AM * HTN -atenolol, lisinopril * Cough with eating - suspect reflex triggered by esophageal disease -passed swallow eval Diet: regular, thin liquids Dispo: Remain inpatient as patient unsafe to discharge home with need for IV fluids. Subjective: Swallowed pills his morning. Ate some bites of oatmeal and drinking tea. Overall feeling better but getting very dizzy with ambulation. Doesn't feel ready to go home. Objective: Vital Signs Temp Pulse Resp BP Pulse Ox 37.5 C 75 16 150/54 H 90 L 05/25/18 16:00 05/25/18 16:00 05/25/18 16:00 05/25/18 16:00 05/25/18 16:00 Laboratory Results 05/25/18 04:20 05/25/18 04:20 05/24/18 05/25/18 05/26/18 05:59 05:59 05:59 Intake Total 2055 Output Total 500 Balance 1555 - Physical Exam Eyes: PERRL, anicteric sclera, EOMI Ears, Nose, Mouth, Throat: moist mucous membranes, hearing normal, ears appear normal, no oral mucosal ulcers, other (no thrush) Cardiovascular: regular rate and rhythym, no murmur, rub, or gallop Respiratory: no respiratory distress, no rales or rhonchi, clear to auscultation Gastrointestinal: normoactive bowel sounds, soft, non-tender abdomen, no palpable masses Skin: no rashes or abrasions, no fluctuance, no induration Neurologic: AAOx3, sensation intact bilaterally Psychiatric: interacting appropriately, not anxious, not encephalopathic, thought process linear ICD10 Worksheet Patient Problems: Problems Problem Status Onset Esophagitis Acute Hyponatremia Acute Painful swallowing Acute Epiglottitis Acute GI bleed Acute
[2018-05-25] MEDS: OXYBUTYNIN CHLORIDE 5 MG TAB PO SCH (20:12)
[2018-05-26] MEDS: NS 1,000 ML IV SCH (03:37)
[2018-05-26] MEDS ORDERED: BIOTENE DRY MOUTH ORAL RINSE 237 ML BTL MM PRN (09:11)
[2018-05-26] MEDS: SUCRALFATE 1 GM/10 ML UDCUP PO SCH ×2 (10:04→19:49)
[2018-05-26] MEDS: LISINOPRIL 20 MG TAB PO SCH (10:04)
[2018-05-26] MEDS: FLUCONAZOLE 100 MG TAB PO SCH (10:04)
[2018-05-26] MEDS: CYANO/VITAMIN B12 1000 MCG TAB PO SCH (10:05)
[2018-05-26] MEDS: ATENOLOL 25 MG TAB PO SCH (10:05)
[2018-05-26] MEDS: PANTOPRAZOLE SODIUM 40 MG TAB PO SCH ×2 (10:05→19:49)
[2018-05-26] MEDS: ENOXAPARIN 40 MG/0.4 ML SYR SC SCH (10:06)
--- NOTE | 2018-05-26 10:25 | PDDCSUM ---
Discharge Summary Discharge Summary: Date of Admission: 05/23/2018 Date of Discharge: 05/26/2018 Procedures: EGD Consultants: GI Disposition: home Discharge Diagnoses: 1. Severe esophagitis (gerd vs rachel) 2. Dysphagia 3. Caregiver fatigue 4. HTN Brief Hospital Course: 82yo F with history of erosive esophagitis, acute epiglottitis requiring intubation presents with several days of dysphagia found to have severe esophagitis on upper endoscopy. Likely related to acid reflux but couldn't rule out Candidal infection. Swallowing improved with initiation of PPI and anti- fungal. Passed swallow eval, tolerating PO and able to take pills at discharge. To complete 8 weeks of PPI BID and 5 more days of diflucan. Biopsies pending at discharge. 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 Case management met with patient's daughter and gave family resources on respite care for her so patient can get some time away. Per son, family is setting up respite care for at time of discharge. Medications: Please refer to EMR for complete list. Additions this hospitalization include pantroprazole and diflucan. Follow Up Plan: 1. Esophageal biopsies for rachel and H pylori testing pending at time of discharge 2. PCP clinic visit in 1-2 weeks Physical Exam: Vitals reviewed, mildly hypertensive but otherwise normal and afebrile. Alert and oriented. RRR on cardiac exam, lungs clear, abdomen soft and nontender. No focal neurologic deficits.
[2018-05-26] MEDS: ACETAMINOPHEN 325 MG TAB PO PRN ×2 (10:39→19:50)
--- NOTE | 2018-05-26 11:40 | HOSPPROG ---
Hospitalist Progress Note Assessment/Plan: 82yo F with dysphagia secondary to severe esophagitis. This is my first encounter with the patient. Prior EGD report and GI notes reviewed. * Severe esophagitis - likely due to GERD, also possible rachel -biopsy pending -continue PO PPI and diflucan * Hyponatremia - improving with hydration -no need to continue checking * HTN -atenolol, lisinopril * Cough with eating - suspect reflex triggered by esophageal disease -passed swallow eval * Hypoxia - mild, suspect atelectasis -IS * Right leg pain - low suspicion for dvt as has been on ppx and walking -tylenol # Caregiver fatigue Diet: regular, thin liquids Dispo: Plan to discharge today to home. Will get her a cab voucher. 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 Subjective: Feeling well this morning. Wanting to go home. Swalloing ok. Later in the morning, she began to endorse severe right lower leg pain. No redness or swelling. She was also noted to be satting 85% on room air, was previously requiring 2L NC overnight. Objective: Vital Signs Temp Pulse Resp BP Pulse Ox 37.1 C 69 20 149/66 H 97 05/26/18 07:31 05/26/18 10:05 05/26/18 07:31 05/26/18 10:05 05/26/18 07:31 Laboratory Results 05/26/18 05:20 05/26/18 05:20 05/25/18 05/26/18 05/27/18 05:59 05:59 05:59 Intake Total 5528 0139 Output Total 500 800 100 Balance 1555 1741 -100 ICD10 Worksheet Patient Problems: Problems Problem Status Onset Esophagitis Acute Hyponatremia Acute Painful swallowing Acute Epiglottitis Acute GI bleed Acute
[2018-05-26] MEDS ORDERED: IBUPROFEN 200 MG TAB PO ONE (13:33)
[2018-05-26] MEDS ORDERED: METHYL SALICYLATE/MENTHOL OINTMENT TP PRN (13:33)
--- NOTE | 2018-05-26 16:32 | ASMTCMCOM ---
CM Note CM Note Notes: Patient having right leg pain and has been unable to ambulate this afternoon. PT/OT to do re-evaluation tomorrow. D/C plan remains patient returning home however she may need home health PT/OT. CM will follow. Date Signed: 05/26/2018 04:31 PM Electronically Signed By:Malia Erickson LCSW
[2018-05-26] MEDS: OXYBUTYNIN CHLORIDE 5 MG TAB PO SCH (19:49)
[2018-05-27] MEDS: SUCRALFATE 1 GM/10 ML UDCUP PO SCH (07:49)
[2018-05-27] MEDS: LISINOPRIL 20 MG TAB PO SCH (07:58)
[2018-05-27] MEDS: ATENOLOL 25 MG TAB PO SCH (07:59)
[2018-05-27] MEDS: FLUCONAZOLE 100 MG TAB PO SCH (08:44)
[2018-05-27] MEDS: CYANO/VITAMIN B12 1000 MCG TAB PO SCH (08:44)
[2018-05-27] MEDS: PANTOPRAZOLE SODIUM 40 MG TAB PO SCH (08:44)
[2018-05-27] MEDS: ENOXAPARIN 40 MG/0.4 ML SYR SC SCH (08:44)
--- NOTE | 2018-05-27 10:56 | HOSPPROG ---
Hospitalist Progress Note Assessment/Plan: 82yo F with dysphagia secondary to severe esophagitis. This is my first encounter with the patient. Prior EGD report and GI notes reviewed. Severe esophagitis - likely due to GERD, also possible rachel -biopsy pending -continue PO PPI path neg for fumal elements so dc fluconazole Hyponatremia - improving with hydration -no need to continue checking HTN -atenolol, lisinopril Cough with eating - suspect reflex triggered by esophageal disease -passed swallow eval Hypoxia - mild, suspect atelectasis -IS Right leg pain - low suspicion for dvt as has been on ppx and walking -tylenol able to alk this AM Caregiver fatigue home today > 30 minutes Subjective: ate 1/2 of her breakfast. amenable to dc home. films yesterday neg for fx, walked to [place] on her own Objective: Vital Signs Temp Pulse Resp BP Pulse Ox 36.7 C 61 16 195/64 H 95 05/27/18 07:52 05/27/18 07:52 05/27/18 07:52 05/27/18 07:52 05/27/18 07:52 Laboratory Results 05/26/18 05:20 05/26/18 05:20 05/26/18 05/27/18 05/28/18 05:59 05:59 05:59 Intake Total 2541 650 500 Output Total 800 300 Balance 1741 350 500 - Physical Exam Constitutional: no apparent distress, appears nourished Eyes: PERRL, anicteric sclera Ears, Nose, Mouth, Throat: moist mucous membranes, hearing normal Cardiovascular: regular rate and rhythym, no murmur, rub, or gallop Respiratory: no respiratory distress, no rales or rhonchi Gastrointestinal: normoactive bowel sounds, soft, non-tender abdomen Genitourinary: no bladder fullness, No cash in urethra Skin: warm, normal color Musculoskeletal: full muscle strength ICD10 Worksheet Patient Problems: Problems Problem Status Onset Esophagitis Acute Hyponatremia Acute Painful swallowing Acute Epiglottitis Acute GI bleed Acute
--- NOTE | 2018-05-27 11:11 | PDHOMEO2F ---
Home Oxygen Face to Face Home Orders: I certify that a physician or a nurse practitioner or physician's delivery assistant has had a [id number] encounter with this patient on the date of this order due to the diagnosis listed, which relates to the primary reason the patient requires home oxygen. Alternative treatments have been tried, or considered, and deemed ineffective. It is anticipated that supplemental oxygen will result in improvement with treatment. Home oxygen qualifying diagnosis: copd SpO2 on room air (%): 80 Frequency of home oxygen needed: continuous Home oxygen liters per minute: 2 Home oxygen delivery device: nasal cannula Concentrator: No E-tanks for mobility and back up: Yes If ordering portable O2, is the patient mobile in the home?: Yes I certify that, based on these findings, the home oxygen is medically necessary for this patient for the following length of time. Length of time home oxygen needed: 1 month
--- NOTE | 2018-05-27 12:46 | ASMTCMCOM ---
CM Note CM Note Notes: CM made a referral for Pt to have RN to check in for her overall well-being, with [facility]. Left message for on-call weekend nurse and sent referral through [employer]. They're availability has yet to be confirmed. Pt discharging today. D/C Plan: Anticipate home with RN from [facility]. Date Signed: 05/27/2018 12:46 PM Electronically Signed By:Marisa Evans
[2018-05-27 13:19] VITALS: BP 188/60
--- NOTE | 2018-05-27 14:16 | PDIAF ---
- Diagnosis Diagnosis: esophagitis Code Status: Full Code - Medication Management Discharge Medications: Medications to Continue on Transfer Oxybutynin Chloride 10 mg PO HS 02/21/17 [Last Taken 02/18/17] Atenolol [Tenormin 25 mg (*)] 25 mg PO DAILY 05/23/18 [Last Taken Unknown] Cyanocobalamin [Vitamin B12 (*)] 1,000 mcg PO DAILY 05/23/18 [Last Taken Unknown ] Lisinopril [Zestril 20 mg (*)] 20 mg PO DAILY 05/23/18 [Last Taken Unknown] Pantoprazole Sodium [Protonix 40mg (*)] 40 mg PO BID #60 tab 05/25/18 [Last Taken Unknown] Discharge Medications: Refer to the Discharge Home Medication list for PRN reason. - Orders Services needed: Home Care, Registered Nurse Home Care Face to Face: I certify that this patient was under my care and that I had the required [id number] encounter meeting the encounter requirements on the discharge day. My findings support the fact that the patient is homebound as defined in Home Care Face to Face Continued: CMS Chapter 7 Medicare Benefits Manual 30.1.1 , The condition of the patient is such that there exists a normal inability to leave home and consequently, leaving home would require a considerable and taxing effort. Diet Texture: Regular Texture Diet, Dysphagia 1 - Pureed, Thin Liquids, [place] Thick Liquids, Meds Whole w/Liquids, Meds Whole in Puree Additional Instructions: Here are your discharge instructions. We have prescribed 2 new medications: 1. Pantoprazole. You should take this twice daily for 8 weeks. 2. Fluconazole. You should take this once daily for 5 more days. Do not take your aspirin that was on your medication list until you have completed the above medications. Please follow up with your primary care doctor in 1-2 weeks. If you are having trouble taking your pills or staying hydrated, please call your primary care doctor. - Follow Up Care Current Providers and Referrals: OFE ESQUIVEL [Primary Care Provider] - As per Instructions
--- NOTE | 2018-05-27 15:53 | ASMTLACE ---
LACE Length of stay for Answers: 3 days current admission Acuity / Level of Answers: Yes Care: Did the patient have an inpatient admission? Comorbidities - select Answers: Other Notes: HTN all that apply # of Emergency department Answers: 1-2 visits in the last 6 months Score: 8 Date Signed: 05/27/2018 03:53 PM Electronically Signed By:Marisa Evans
--- NOTE | 2018-05-27 15:55 | ASMTDCNOTE ---
Case Management Discharge Discharge Order Complete? Answers: Yes Patient to Obtain Answers: via Family Medications Transportation Arranged Answers: Family/Friends Case Management Transport Answers: Yes Form Complete Faxed Final Orders Answers: Yes Agency/Facility Transfer Answers: Yes Report Printed & Faxed to Receiving Agency Family Notified Answers: Yes Discharge Comments Notes: Pt d/gary home with [facility] RN who will check on overall well being of Pt. Date Signed: 05/27/2018 03:54 PM Electronically Signed By:Marisa Evans
--- NOTE | 2018-05-27 16:58 | GDS ---
DISCHARGE DIAGNOSES: 1. Esophagitis of uncertain etiology with negative pathology. [place] secondary to reflux. 2. Hypertension. 3. Duodenal ulcer. 4. Osteoporosis. 5. History of acute epiglottitis. 6. Hyponatremia. HOSPITAL COURSE: Please see admission History and Physical by Dr. Rosemarie Avalos. The patient presented with poor p.o. intake from odynophagia. She had an EGD showing esophagitis. P ath was negative for viral inclusions or fungal elements. The patient is initiated on a PPI. She simmons d no evidence of GI bleeding. Her sodium was 123 on presentation, and jessica to 131 with just increasi ng her p.o. intake. She has not had symptoms from this. She is discharged home on a twice daily PPI. Fluconazole had been prescribed, but is discontinued gi louis the absence of fungal elements. /[id number]/MODL
== END 2018-05-27 15:26 | disposition home or self-care (01) | DRG 392 ==
LOC: F2N 11:42 → OBSVTOIN 05-24 13:05
PROVIDERS: ADMIT Internal Medicine; ATTEND Internal Medicine
DX: K21.0 Gastro-esophageal reflux disease with esophagitis (principal); E87.1 Hypo-osmolality and hyponatremia; E86.9 Volume depletion, unspecified; I10 Essential (primary) hypertension; K26.9 Duodenal ulcer, unspecified as acute or chronic, without hemorrhage or perforation; M81.0 Age-related osteoporosis without current pathological fracture; G47.00 Insomnia, unspecified
CPT/HCPCS: 92526-GN; 92610-GN; 96365; 97161-GP; 97165-GO; G0378; G8978-GP-CI; G8979-GP-CI; G8980-GP-CI; G8987-GO-CI; G8988-GO-CI; G8989-GO-CI; G8996-GN-CH; G8996-GN-CI; G8997-GN-CI; G8998-GN-CH; J0360; J1170; J1200; J1450; J1650; J2250; J2405; J3010; Q9967

== ENCOUNTER 2018-09-02 18:43 | Inpatient (IN) | payer OTHER ==
[2018-09-02] MEDS ORDERED: NS 1,000 ML IV ONE (18:47)
--- NOTE | 2018-09-02 18:48 | EDPHY ---
H & P Time Seen by Provider: 09/02/18 18:48 HPI/ROS: HPI CHIEF COMPLAINT: Full trauma activation. "Pain to Left Arm" HISTORY OF PRESENT ILLNESS: 82-year-old female, she has a history of hypertension, epiglottitis, duodenal ulcer, hyponatremia presents to the emergency room initially as a full trauma activation. EMS reports that she fell while going to the grocery store. This was unwitnessed. Bystanders picked her up, drove her back to her house. They report that she was walking to the grocery store and had a trip/fall. Patient complains of left shoulder pain. But mostly answers "I dont know to most questions" The patient arrives to the emergency room GCS 15, alert or x4, complaining of left shoulder pain. Of note this patient is somewhat of a poor historian. automatic car wash attendant was used at bedside. Most of the questions the patient answers "I dont know" Past Medical History: Hypertension, epiglottitis, duodenal ulcer, hyponatremia Past Surgical History: No recent surgery Social History: Lives locally, private residence. Family History: Noncontributory ROS REVIEW OF SYSTEMS: 10 Systems were reviewed and negative with the exception of the elements mentioned in the history of present illness. Exam Constitutional elderly, frail, triage nursing summary reviewed, vital signs reviewed, awake/alert. Hypertensive upon arrival. Eyes normal conjunctivae and sclera, EOMI, PERRLA. HENT head/neck exam in cervical collar, no obvious signs of trauma on head and neck exam. Extensive hair curlers in, moist mucus membranes, no epistaxis, neck supple/ no meningismus, no raccoon eyes. Respiratory clear to auscultation bilaterally, normal breath sounds, no respiratory distress, no wheezing. Cardiovascular rate normal, regular rhythm, no murmur, no edema, distal pulses normal. Gastrointestinal soft, non-tender, no rebound, no guarding, normal bowel sounds, no distension, no pulsatile mass. Genitourinary no CVA tenderness. Musculoskeletal left upper extremity: Good distal pulse, good cap refill, however tender to palpation when I palpate her left shoulder and left elbow. Also obvious deformity to left wrist, swelling noted. Closed. Neurovascular intact good distal pulse. Tender palpation over the distal radius. Right hand: 3rd digit laceration present. no midline vertebral tenderness, full range of motion, no calf swelling, no tenderness of extremities, no meningismus, good pulses, neurovascularly intact. Skin pink, warm, & dry, no rash, skin atraumatic. Neurologic awake, alert and oriented x 3, AAOx3, moves all 4 extremities equally, motor intact, sensory intact, CN II-XII intact, normal cerebellar, normal vision, normal speech. Psychiatric normal mood/affect. Heme/Lymph/Immune no lymphadenopathy. Differential Diagnosis: Includes but is not limited to in a particular order mechanical trip and fall, syncope, cardiac arrhythmia, electrolyte disturbance, closed-head injury, intracranial bleed, cervical spine fracture, left shoulder contusion, left shoulder fracture, humerus fracture, humerus contusion, elbow fracture Medical Decision Making: Plan for this patient chest x-ray, x-ray left shoulder , basic blood work, EKG, gentle IV fluids, CT scan head without contrast and CT cervical spine without contrast for trauma. Re-evaluation: Dr. Posada at bedside with Trauma surgery upon arrival of the patient as she came in as a full trauma activation. EKG interpretation by me on record in [facility] system. Impression time of EKG 1853, sinus rhythm rate of 71, no signs of acute ischemia some motion artifact in inferior leads. No signs of cardiac arrhythmia. Upon arrival the patient had a head to toe trauma exam and was rolled, C-spine immobilization was maintained. No evidence of external trauma on head and neck exam. Patient's main complaint left shoulder pain. Left shoulder x-ray reviewed shows a humeral neck fracture. 1937: Patient is back from CT scan. She remains in a cervical collar CT scan head without contrast and CT cervical spine without contrast called to me by Dr. Hess, C1 and C2 fracture. Unstable C2 fracture. Neurosurgery consult at 7:38 p.m. For the cervical spine fractures. CT scan of the head without contrast negative for acute traumatic injury Dr. Posada with Trauma Sx to admit. Dr. Adkins, has seen and evaluated the patient requesting CT angiogram of the neck. I have ordered this. Additionally on re-evaluation the patient has pain to left shoulder, left elbow and left wrist. Added on left wrist x-ray. Orthopedics will be consult in for the left shoulder. 1951: Dr. Nguyen's PA consulted for Left Humerus fx. left wrist fracture Chest x-ray reviewed no evidence of pneumothorax. Patient has the following injuries CT cervical spine shows C1 and C2 fracture X-ray left shoulder shows a humeral neck fracture X-ray of the left wrist : Reviewed shows a distal radial fracture. Comminuted. X-ray of the left elbow : Negative for acute fracture Pelvis Xray: Negative for acute fracture. X-ray of the right hand: 3rd digit, fracture of the 3rd digit. 2130: Patient had a hematoma block performed of the left wrist. I was able to manipulate her left wrist under hematoma block to help relocate her fracture of the left wrist. She has been splinted in a sugar-tong splint. Post reduction x -ray pending. Laceration repair of the right hand palmar side 3rd digit laceration this is a very complex deep laceration. Hand surgery was consult. Patient was copiously irrigating clean here in the emergency room. Sutures were placed by myself. Please see below. Splinted. Antibiotics. Laceration Repair Procedure: Verbal Consent was obtained, Under sterile conditions, The patient had lidocaine with epinephrine used approximately 15ccs to local anesthetize the right middle finger finger laceration complex 7 cm avulsion laceration to the palmar side middle finger right hand L-shaped laceration large in deep. No arterial injury. The wound was copiously irrigated with sterile fluid, the wound was explored for foreign bodies there were none visualized, the wound was explored with a sterile glove to the base. There are no deep structures involved, including no arterial injury. FIVE 4.O PROLENE and THREE 6.O PROLENE interrupted Sutures were placed in this patient's laceration. She had good close approximation of the wound edges. She Tolerated this well. The finger was copiously irrigated and cleaned. Wound was explored for foreign bodies no foreign bodies visualized. No arterial injury. This was a deep complex laceration. The patient has been splinted. Hand surgery will be consulted. Patient received 2 g of Ancef. I spoke with Dr. Goldman with Hand surgery. Discussed case in detail. Will plan on seeing the patient in the morning. Patient's finger is been repaired with sutures She does have fractures of the finger 3rd digit right hand. Ancef as been given. Patient's finger is been copiously washed out at bedside. Dr. Goldman with Hand surgery consulted Dr. Dow with Orthopedics consulted Dr. Schmitz with Neurosurgery consult Dr. Posada with Trauma surgery admitting consulted Procedure: Procedural sedation. Indication: Closed reduction left wrist fracture. A pre-sedation evaluation was completed on the patient just prior to the procedure. Patient is an appropriate candidate for procedural sedation with ASA class 1 E. The risks of the sedation were discussed including but not limited to dysrhythmia, need for airway intervention or general anesthesia, disability, ; and verbal consent obtained. A timeout was observed and patient's identity confirmed. The patient was sedated with 20 mg IV propofol.. The patient was monitored with continuous pulse oximetry, capnography, and teletypesetter monitor. There were no complications and no significant hypoxemia. I remained at the bedside for the sedation. The total time I spent in the procedural sedation was 30 mins Patient tolerated conscious sedation very well. There were no complications. Patient's left wrist was splinted and reduced by Dr. Dow. Post reduction x-ray pending. Critical Care: Total Critical Care Time Spent Managing this Patient: 85 Minutes. This time was spent Exclusively with this patient. This Care was exclusive of procedures. The Organ System/life at risk was Poly Trauma, Multiple injuries This Patient was in Critical Condition because Multiple injuries, C1 fx, c2 fx , wrist fx, shoulder fx, Finger fx, large finger avulsion laceration, hyponatremia. Source: Patient, EMS - Medical/Surgical History Hx Asthma: No Hx Chronic Respiratory Disease: No Hx Diabetes: No Hx Cardiac Disease: No Hx Renal Disease: No Hx Cirrhosis: No Hx Alcoholism: No Hx HIV/AIDS: No Hx Splenectomy or Spleen Trauma: No Other PMH: HTN. bladder hyperactivity,Insomnia - Social History Smoking Status: Never smoked Constitutional: Initial Vital Signs Temperature (C) 35.6 C L 09/02/18 18:57 Heart Rate 67 09/02/18 18:57 Respiratory Rate 12 09/02/18 18:57 Blood Pressure 180/80 H 09/02/18 18:57 O2 Sat (%) 92 09/02/18 18:57 O2 Delivery Mode Nasal Cannula O2 (L/minute) 2 Allergies/Adverse Reactions: influenza virus vaccine, specific Allergy (Unknown, Verified 09/02/18 18:57) Home Medications: Medication Instructions Recorded Oxybutynin Chloride 10 mg PO HS 02/21/17 Atenolol [Tenormin 25 mg (*)] 25 mg PO DAILY 05/23/18 Cyanocobalamin [Vitamin B12 (*)] 1,000 mcg PO DAILY 05/23/18 Lisinopril [Zestril 20 mg (*)] 20 mg PO DAILY 05/23/18 Pantoprazole Sodium [Protonix 40mg 40 mg PO BID #60 tab 05/25/18 (*)] Ammonium Lactate [Ammonium Lactate] 1 applic TP AD 09/02/18 Ciprofloxacin HCl [Ciprofloxacin] 500 mg PO BID 09/02/18 Medical Decision Making - Data Points Laboratory Results: Laboratory Results 09/02/18 18:56 09/02/18 18:56 Medications Given: Acetaminophen (Tylenol) 325 - 650 mg PO Q4HRS PRN PRN Reason: Pain, Mild Able to Take PO Stop: 03/01/19 19:42 Last Admin: 09/05/18 21:36 Dose: 325 mg Hydrocodone Bitart/Acetaminophen ([place] 5/325) 1 - 2 tab PO Q6HRS PRN PRN Reason: Pain, Moderate Able to Take PO Stop: 09/12/18 19:42 Last Admin: 09/05/18 16:36 Dose: 1 tab Atenolol (Tenormin) 25 mg PO DAILY VIKTOR Stop: 03/02/19 08:59 Last Admin: 09/05/18 07:46 Dose: 25 mg Sodium Chloride (Ns) 1,000 mls @ 75 mls/hr IV CONT [facility] Stop: 03/02/19 15:14 Last Admin: 09/03/18 18:09 Dose: 1,000 mls Lisinopril (Zestril) 20 mg PO DAILY VIKTOR Stop: 03/02/19 08:59 Last Admin: 09/05/18 07:47 Dose: 20 mg Morphine Sulfate (Morphine) 1 - 2 mg IVP Q1HR PRN PRN Reason: Pain, Severe Unable to Take PO Stop: 09/12/18 19:42 Last Admin: 09/05/18 12:22 Dose: 1 mg Ondansetron HCl (Zofran) 4 mg IVP Q4HRS PRN PRN Reason: Nausea/Vomiting, Can't Take PO Stop: 03/01/19 19:42 Last Admin: 09/02/18 20:37 Dose: 4 mg Ondansetron HCl (Zofran Odt) 4 mg PO Q4HRS PRN PRN Reason: Nausea/Vomiting, Use 1st Stop: 03/01/19 19:42 Last Admin: 09/05/18 05:49 Dose: 4 mg Oxybutynin Chloride (Ditropan) 10 mg PO HS [facility] Stop: 03/02/19 20:59 Last Admin: 09/05/18 21:26 Dose: 10 mg Pantoprazole Sodium (Protonix) 40 mg PO BID VIKTOR Stop: 03/02/19 08:59 Last Admin: 09/05/18 21:26 Dose: 40 mg Vitamin B Complex (Vitamin B12) 1,000 mcg PO DAILY VIKTOR Stop: 03/02/19 08:59 Last Admin: 09/05/18 07:46 Dose: 1,000 mcg Discontinued Medications Fentanyl (Sublimaze) 50 mcg IVP EDNOW ONE Stop: 09/02/18 19:47 Last Admin: 09/02/18 20:37 Dose: 50 mcg Fentanyl (Sublimaze) 50 mcg IVP ONCE ONE Stop: 09/02/18 20:38 Last Admin: 09/02/18 20:40 Dose: 50 mcg Hydromorphone HCl (Dilaudid) 0.5 mg IVP EDNOW ONE Stop: 09/02/18 21:38 Last Admin: 09/02/18 21:48 Dose: 0.5 mg Sodium Chloride (Ns) 1,000 mls @ 0 mls/hr IV ONCE ONE; Wide Open PRN Reason: Protocol Stop: 09/02/18 18:48 Last Admin: 09/02/18 19:15 Dose: 1,000 mls Cefazolin Sodium/Dextrose (Ancef) 100 mls @ 200 mls/hr IV EDNOW ONE PRN Reason: Protocol Stop: 09/02/18 22:07 Last Admin: 09/02/18 21:49 Dose: 100 mls Lorazepam (Ativan Injection) 0.5 mg IVP ONCE ONE Stop: 09/02/18 21:18 Last Admin: 09/02/18 21:18 Dose: 0.5 mg Lorazepam (Ativan Injection) 0.5 mg IVP ONCE ONE Stop: 09/02/18 23:53 Last Admin: 09/02/18 23:30 Dose: 0.5 mg Ondansetron HCl (Zofran) 4 mg IVP EDNOW ONE Stop: 09/02/18 20:22 Last Admin: 09/02/18 20:48 Dose: 4 mg Propofol (Diprivan) 20 mg IVP EDNOW ONE Stop: 09/02/18 23:57 Last Admin: 09/02/18 22:45 Dose: 20 mg Point of Care Test Results: Chemistry 09/02/18 18:55 POC Troponin I 0.00 ng/mL ng/mL (0.00-0.08) Departure - Departure Disposition: [facility] Acute Clinical Impression: Hyponatremia Fall Qualifiers: Encounter type: initial encounter Qualified Code(s): W19.XXXA - Unspecified fall, initial encounter Cervical spine fracture Qualifiers: Encounter type: initial encounter Cervical vertebra fracture level: C1 Fracture type: closed Fracture morphology: other fracture Fracture alignment: nondisplaced Qualified Code(s): S12.091A - Other nondisplaced fracture of first cervical vertebra, initial encounter for closed fracture Wrist fracture Qualifiers: Encounter type: initial encounter Fracture type: closed Laterality: left Qualified Code(s): S62.102A - Fracture of unspecified carpal bone, left wrist, initial encounter for closed fracture Hand laceration Qualifiers: Encounter type: initial encounter Foreign body presence: without foreign body Laterality: right Qualified Code(s): S61.411A - Laceration without foreign body of right hand, initial encounter Hand fracture Qualifiers: Encounter type: initial encounter Fracture type: closed Laterality: right Qualified Code(s): S62.91XA - Unspecified fracture of right wrist and hand, initial encounter for closed fracture Humeral surgical neck fracture Qualifiers: Encounter type: initial encounter Fracture type: closed Fracture morphology: unspecified fracture morphology Fracture alignment: nondisplaced Laterality: left Qualified Code(s): S42.215A - Unspecified nondisplaced fracture of surgical neck of left humerus, initial encounter for closed fracture Condition: Fair
[2018-09-02 19:03] LABS: PLATELET COUNT 253 10^3/uL (150-400)
[2018-09-02 19:12] LABS: INR 0.95 (0.83-1.16); PROTIME(PATIENT) 12.9 SEC (12.0-15.0)
[2018-09-02] MEDS ORDERED: fentaNYL 100 MCG/2 ML INJ ONE (19:45)
[2018-09-02] MEDS ORDERED: fentaNYL 100 MCG/2 ML INJ IVP ONE ×2 (19:46→20:37)
[2018-09-02] MEDS ORDERED: IOPAMIDOL (ISOVUE 370) 100 ML BTL IV ONE (19:47)
[2018-09-02] MEDS ORDERED: ONDANSETRON 4 MG/2 ML VIAL ONE (20:17)
[2018-09-02] MEDS ORDERED: ONDANSETRON 4 MG/2 ML VIAL IVP ONE (20:21)
[2018-09-02] MEDS: ONDANSETRON 4 MG/2 ML VIAL IVP PRN (20:37)
[2018-09-02] MEDS ORDERED: LORazepam 2 MG/ML INJ ONE ×2 (21:15→23:18)
[2018-09-02] MEDS ORDERED: LORazepam 2 MG/ML INJ IVP ONE ×2 (21:17→23:52)
[2018-09-02] MEDS ORDERED: HYDROmorphONE/DILAUDID 1 MG/ML INJ ONE (21:27)
[2018-09-02] MEDS ORDERED: HYDROmorphONE/DILAUDID 2 MG/ML INJ IVP ONE (21:37)
[2018-09-02] MEDS ORDERED: ceFAZolin 2 GM/DEXTROSE 100 ML IV ONE (21:38)
--- NOTE | 2018-09-02 21:59 | GHP ---
DATE OF ADMISSION: 09/02/2018 FULL TRAUMA ACTIVATION REPORT REASON FOR EVALUATION: Fall, possible left arm paralysis. 82-year-old female brought in as a full trauma activation by EMS. Initial story states that she had been walking to the grocery store and allegedly tripped and fell. Was brought back home by a bystander. Because of complaints of left arm pain, her son called EMS, for which she was brought to the emergency room with concerns for possible left arm paralysis as a full trauma activation. On initial arrival, the patient complained of left arm pain alone with an obvious fracture. Her story was initially difficult to interpret even via business systems technician. As she began to calm down, she later complained of neck pain as well. She was without any other specific complaints. History was later clarified when the patient's son arrived. He states that the patient tripped and fell down a hill hitting an embankment and was brought home by an innocent bystander. When he found her at home, was noted to be with multiple generalized complaints. PAST MEDICAL HISTORY: Hypertension, history of hyponatremia, duodenal ulcer, and epiglottitis per prior hospital records. PAST SURGICAL HISTORY: Denies. MEDICATIONS: Atenolol. ALLERGIES: Flu vaccine. SOCIAL: The patient lives at home with her son. She is . Her does not live with her. PHYSICAL EXAM: VITAL SIGNS: Admitting temperature 35.6, blood pressure 200/90 , pulse 67, respirations 12. GENERAL: The patient is alert. PRIMARY SURVEY: A, B, C intact. SECONDARY SURVEY: HEENT: Pupils are equal, round, reactive to light and accommodation. Extraocular muscles are intact. No facial tenderness, step-offs , or deformities. NECK: Minimal cervical spine tenderness. Trachea midline without crepitus. HEART: Regular. LUNGS: Clear. ABDOMEN: Soft, nontender, nondistended. PELVIS: Nontender. EXTREMITIES: Normal bilateral lower extremities. 2+ radial pulses, 2+ pedal pulses. Right upper extremity notable for a 3rd digit avulsion/laceration. Left upper extremity with obvious deformity of her upper arm. 2+ radial pulses bilaterally. BACK: Thoracic and lumbar spine is nontender. NEURO: Moving all extremities well. IMAGING STUDIES: CT head with no acute injuries. Cervical spine CT with C1-C2 fractures. Chest x-ray without fracture, pneumothorax, or mediastinal widening. Pelvis x-ray without obvious fracture. Left humeral neck fracture, as well as left distal radius fracture, right hand with right 3rd digit middle and distal phalanx fractures. IMPRESSION: 1. 82-year-old female, status post trip and fall. 2. C1-C2 fracture without neurologic deficit. 3. Left humeral neck, as well as distal radius fractures. 4. Right 3rd phalynx fracture with overlying skin laceration without exposed bone or joint. PLAN: 1. The patient is being admitted for further evaluation, management. Neurosurgical Service has been consulted. Iron collar has been placed. Nonoperative management recommended at this time. CT angiography of the neck is currently pending for further carotid and vertebral artery assessment. 2. Orthopedic Surgery has been consulted regarding her left upper extremity fractures. A splint is being applied with additional nonoperative management. 3. Finger laceration is being repaired in the emergency room primarily with splint application for her digital fractures. 4. Physical Therapy, Occupational Therapy and Speech will be enlisted for ongoing rehab needs. Care plan was discussed with the emergency room physician on-call, as well as with the patient's son at bedside and orthopedic PA at bedside. /[id number]/MODL MTDD
[2018-09-02] MEDS ORDERED: PROPOFOL 200 MG/20 ML VIAL ONE (22:14)
--- NOTE | 2018-09-02 23:11 | SOAPPROG ---
SOAP Progress Note Assessment/Plan: Assessment: 82F s/p fall with non-displaced L PHFx and L DRFx s/p CR/splint by me after conscious sedation provided by Dr Gibson. Procedure: After appropriate conscious sedation, L wrist was manipulated by me with traction-countertraction and anatomic reduction achieved on mini C-arm. Milburn traction used for molded, plaster ST splint, wrist in ulnar deviation and flexion. DNVI and N/V exam unchanged after reduction. Plan: NWB LUE in sling and splint. Ice/elevation. No smoking/NSAIDs. Analgesics prn. Will re-evaluate shoulder and wrist with repeat XRs in 3-7 days , to assure maintenance of reduction and fx stability. I can also assume care of her finger fx, given the above injuries, to facilitate MD f/u and ease for pt , but will wait for approval by on-call hand surgeon. Will follow with you while she is an in-pt. Please call with any questions. 09/02/18 23:05 Subjective: Consulted by ER for L DRFx and L PHFx, closed, s/p fall. Objective: Vital Signs Temp Pulse Resp BP Pulse Ox 36.6 C 76 20 161/95 H 100 09/02/18 22:03 09/02/18 22:03 09/02/18 22:03 09/02/18 22:03 09/02/18 22:03 09/01/18 09/02/18 09/03/18 05:59 05:59 05:59 Intake Total 1100 Balance 1100 PT 12.9 SEC (12.0-15.0) 09/02/18 18:56 INR 0.95 (0.83-1.16) 09/02/18 18:56 L wrist skin intact, no erythema/calor, mild ecchymosis and edema. Comp's soft. TTP at DR. Able to wiggle all fingers, LT sens intact, WWP w/ brisk CR, palp rad pulse. DNVI BUE. XR: Colles fx L wrist with 100% dorsal displacement, present in injury films and after initial reduction attempt by ER. L PHFx non-displaced with comminution. ICD10 Worksheet Patient Problems: Problems Problem Status Onset Cervical spine fracture Acute Fall Acute Hand fracture Acute Hand laceration Acute Humeral surgical neck fracture Acute Hyponatremia Acute Wrist fracture Acute Epiglottitis Acute Esophagitis Acute GI bleed Acute Painful swallowing Acute
[2018-09-02] MEDS ORDERED: PROPOFOL 200 MG/20 ML VIAL IVP ONE (23:56)
[2018-09-03] MEDS: ACETAMINOPHEN 325 MG TAB PO PRN (04:53)
--- NOTE | 2018-09-03 07:29 | PDMN ---
Medical Necessity Medical necessity: Pt meets INPT criteria per MD as of 09/02/18 and [facility] Multiple Trauma GRG (est. LOS >2 MN for eval/mgmt s/p trip and fall with C1-C2 fracture, L humeral neck fracture, distal radius fracture, phalynx fracture).
--- NOTE | 2018-09-03 07:34 | GCON ---
DATE OF CONSULTATION: 09/02/2018 HISTORY OF PRESENT ILLNESS: The patient is an 82-year-old female who presented to the emergency room following a fall while going to the grocery store. The fall itself appeared to be unwitnessed; however, bystanders picked her up, drove her back to her house, and at some point, the patient was taken to the hospital via ambulance. History is difficult to obtain from the patient due to a language barrier. We attempted to speak with the patient, both in Maltese and Japanese. She is unable to explain what happened and unable to vocalize where her pain is. At one point, she was complaining of some neck pain. PAST MEDICAL HISTORY: Hypertension, epiglottitis, duodenal ulcer, hyponatremia. PAST SURGICAL HISTORY: None documented. ALLERGIES,: Influenza virus vaccine. HOME MEDICATIONS: Ammonium lactate, lisinopril, vitamin B12, ciprofloxacin, atenolol, Protonix, oxybutynin. SOCIAL HISTORY: Patient denies tobacco use. Admits to alcohol use. No recreational drug use. FAMILY HISTORY: No pertinent neurosurgical family history. REVIEW OF SYSTEMS: Unable to obtain due to language barrier. PHYSICAL EXAMINATION: Patient was seen and examined in the emergency room department by myself and Dr. Schmitz. Blood pressure 180/80, heart rate is 67, respirations 12, breathing 92% on room air, temperature is 35.6. Eyes are open. Extraocular movements are intact. Pupils are equal. The patient is in a cervical hard collar. She is moving all extremities spontaneously and it is difficult to obtain a full muscle strength exam due to the language barrier and other injuries. RESULTS: White count 12.72, hemoglobin 12.0, hematocrit 35.2, platelet count 253. PT 12.9, INR 0.95, PTT 27.8. Sodium 125, potassium 4.2, chloride 93, BUN 20, creatinine 0.8. CT cervical spine and CT head reports pending. ASSESSMENT AND PLAN: In summary, the patient is an 82-year-old female, status post fall from ground level. On CT cervical spine, she has C1 and C2 fractures with subluxation. We recommend proceeding with a CTA of the neck to rule out vertebral artery dissection or injury. We will treat these fractures with a cervical hard collar to be worn at all times. Front Office Associate will be called to fit the patient with an appropriate collar. She can be up as tolerated with the collar in place and be seen by Physical and Occupational Therapies. We will continue to follow along. The patient was seen by myself and Dr. Ricardo Schmitz in the emergency room department. /[id number]/MODL MTDD
--- NOTE | 2018-09-03 09:45 | NEUSURGPN ---
Assessment/Plan: 82 yo female s/p fall with posterior ring C1 fractures, type III fracture through the base of the dens, 3 mm posterior displacement of the dens fracture - cervical hard collar - upright C-spine x-rays once collar obtained - PT/OT - no plans for surgery at this time Discussed with Dr. Schmitz. Subjective: No new overnight issues. Objective: Awake. PERRL Facial expression symmetrical Moving all extremities Hard collar on. - Physician Discussed Patient with : [facility] Physical Exam - Vitals, I&O, Labs I and O 09/02/18 09/03/18 09/04/18 05:59 05:59 05:59 Intake Total 1100 Output Total 425 Balance 675 Intake: IV Infused (ml) 1100 Output: Urine (ml) 425 Bedside Commode 425 Other: Number of Voids Bedside Commode 1 Vital Signs Temp Pulse Resp BP Pulse Ox 36.9 C 74 14 132/65 H 100 09/03/18 07:54 09/03/18 07:54 09/03/18 07:54 09/03/18 07:54 09/03/18 07:54 ICD10 Worksheet Patient Problems: Problems Problem Status Onset Cervical spine fracture Acute Fall Acute Hand fracture Acute Hand laceration Acute Humeral surgical neck fracture Acute Hyponatremia Acute Wrist fracture Acute Epiglottitis Acute Esophagitis Acute GI bleed Acute Painful swallowing Acute
--- NOTE | 2018-09-03 09:53 | SOAPPROG ---
ANDRZEJ Progress Note Assessment/Plan: Assessment: TERTIARY EXAM 82-YEAR-OLD FEMALE STATUS POST A FALL WITH QUESTIONABLE LOC C1-C2 CERVICAL FRACTURE WITH NO SIGNIFICANT SYMPTOMS, PRESENTLY IN A CERVICAL COLLAR. THIS NEEDS TO BE REPLACED WITH A BETTER FITTING COLLAR MULTIPLE THORACIC COMPRESSION FRACTURES WHICH ARE ALSO ASYMPTOMATIC LEFT HUMERAL FRACTURE TREATED WITH SLING AND NONWEIGHTBEARING LEFT RADIAL FRACTURE SPLINTED AND REDUCED WITH FOLLOW-UP EVALUATION AND 3-7 DAYS RIGHT PHALANX FRACTURE HEENT WITHOUT EVIDENCE OF TRAUMA, NONICTERIC, PERRLA, EOMS INTACT CHEST CLEAR AND SYMMETRIC AND NONTENDER COR REGULAR RHYTHM ABDOMEN SOFT NONTENDER WITHOUT MASSES ORGANOMEGALY EXTREMITIES WITH MULTIPLE SPLINTS NOTED ABOVE NEURO: RESPONSIVE, COOPERATIVE BUT PERSEVERATING AND SOMEWHAT DISORIENTED SKIN NO MAJOR LESIONS ABRASIONS OR LACERATIONS EXCEPT ON HER 3RD FINGER NEW PROBLEM TODAY IS HYPONATREMIA WILL GET A MEDICAL CONSULTATION FOR AND FOLLOWUP SODIUM LEVEL SHE IS QUITE UNCOMFORTABLE IN HER CERVICAL COLLAR AND WE MAY NEED A BETTER FITTING COLLAR/NEUROSURGERY EVALUATING THAT Plan: CONTINUE SUPPORTIVE CARE WITH ORTHO A NEUROSURGERY FOLLOW-UP 09/03/18 09:48 Objective: Vital Signs Temp Pulse Resp BP Pulse Ox 36.9 C 74 14 132/65 H 100 09/03/18 07:54 09/03/18 07:54 09/03/18 07:54 09/03/18 07:54 09/03/18 07:54 09/02/18 09/03/18 09/04/18 05:59 05:59 05:59 Intake Total 1100 Output Total 425 Balance 675 PT 12.9 SEC (12.0-15.0) 09/02/18 18:56 INR 0.95 (0.83-1.16) 09/02/18 18:56 ICD10 Worksheet Patient Problems: Problems Problem Status Onset Cervical spine fracture Acute Fall Acute Hand fracture Acute Hand laceration Acute Humeral surgical neck fracture Acute Hyponatremia Acute Wrist fracture Acute Epiglottitis Acute Esophagitis Acute GI bleed Acute Painful swallowing Acute
[2018-09-03] MEDS: HYDROCODONE/APAP 5/325 TAB PO PRN ×3 (10:29→23:08)
[2018-09-03] MEDS: PANTOPRAZOLE SODIUM 40 MG TAB PO SCH ×2 (10:33→23:12)
[2018-09-03] MEDS: CYANO/VITAMIN B12 1000 MCG TAB PO SCH (10:33)
[2018-09-03] MEDS: LISINOPRIL 20 MG TAB PO SCH (10:33)
[2018-09-03] MEDS: ATENOLOL 25 MG TAB PO SCH (10:33)
--- NOTE | 2018-09-03 10:40 | GCON ---
HISTORY OF PRESENT ILLNESS:: Patient is a pleasant 82-year-old RHD female who presented to the ED after a fall while going to the grocery store. It was an unwitnessed fall but she does state that she fell down a hill and hit a wall. Bystanders picked her up, drove her back to her house where she resides with her son. She continued to have left shoulder pain and therefore arrived via EMS full trauma code. The patient is a poor historian, does not recall other inciting injury. Most of the questions answered regarding her instance were "I don't know." She currently denies any abnormal numbness or tingling, worsening change in distal range of motion. No other complaints at this time. Prior to this injury, patient was ambulating without use of assistance. Son is now at bedside, his name is Alvarado. NPO: noon today 09/02/2018. 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 She is full code. PAST MEDICAL HISTORY: Pertinent for hypertension, epiglottitis, duodenal ulcer , hyponatremia. ALLERGIES: Include influenza virus vaccine. PAST SURGICAL HISTORY: Denies at this time. CURRENT HOME MEDICATIONS: Include oxybutynin, chloride, atenolol, vitamin B12, lisinopril, Protonix, ammonium lactate, and ciprofloxacin. SOCIAL HISTORY: Patient lives with her son at a local residence. She is able to make her own medical decisions. She is full code at this time. FAMILY HISTORY: Obtained through son. He denies any heart disease, cancer, blood clots, or bleeding disorders. REVIEW OF SYSTEMS: Otherwise 10 point review of systems is negative, except for as stated above. PHYSICAL EXAM: GENERAL: Patient is alert and able to respond appropriately to question and command. She is currently in a C-collar. HEENT: The patient is currently in a C- collar. Head is otherwise atraumatic. EOMs are intact. Moist buccal mucosa. Patent nares. Hearing is intact. NECK: Currently in C-collar. SPINE: NTTP throughout thoracic/lumbar spine. Negative pelvic squeeze test. CV: Nonlabored breathing no diaphoresis. GI: Abdomen soft, nontender, nondistended. MUSCULOSKELETAL: Focalized exam of bilateral upper extremities: No erythema, ecchymosis, or calor. There is 1+ nonpitting edema to her left proximal humerus, as well as her left distal radius. There is a visible dorsal deformity to her left distal radius. Skin is intact throughout. All compartments are soft. TTP over her left proximal humerus, left distal radius otherwise NTTP throughout; negative snuffbox tenderness b/l. Limited AROM of left wrist secondary to pain and limited AROM of the left shoulder secondary to pain, but she is able to attempt active movement of the extremity with great difficulty. Able to move all fingers. DNVI B/L with no signs of focal deficits at this time. 5/5 electric meter reader strength B/L. Brisk cap refill present B/L. Right hand digit 3 with edema, bleeding laceration and pain during AROM; flexor and extensor mechanisms grossly intact. Negative passive stretch b/l. Focalized exam of bilateral lower extremities. No erythema, edema, ecchymosis or calor b/l. No effusion b/l. Legs are of equal length. AROM: 0-90 in hips b/ l secondary to limited ability to move patient from pain in her c-spine, 0-90 b/ l knee ROM secondary to ability to move patient from pain/immobility in her c- spine. FROM distally in b/l ankles/feet with 5/5 strength present B/L in distal lower extremities. NTTP throughout at this time. Her calves are soft, supple, NTTP B/L with negative bilateral Homans. Brisk cap refill present B/L with 5/5 strength present and no focal deficits noted. All compartments soft with skin intact. EVANGELIST hose and SCDs not on or present yet. NEUROLOGIC: The patient is awake, alert, and oriented. Able to move all 4 extremities equally. Cranial nerves 2-12 grossly intact. Normal speech and affect. SKIN: No rashes, lesions or skin breakthrough except for as stated above. Secondary survey is negative except for as stated above. X-RAYS: Two views of left humerus show a minimally displaced left humeral neck fracture. No other fractures, malalignments, or deformities noted. Three views of left wrist show a comminuted dorsally angulated extra-articular distal radius fracture. No other fractures, malalignments, or deformities noted. Three views of patient's right hand middle finger shows a minimally displaced middle phalanx fracture. AP view of the pelvis shows no fractures, malalignments , or deformities. Two views of the patient's left elbow shows no fractures, malalignments, or deformities. ASSESSMENT: Left proximal humerus fracture, left distal radius fracture, right hand digit 3 middle phalanx fracture. All injuries closed. PLAN: At this time patient's physical exam findings and x-rays were explained at length to her and her son. Regarding the left proximal humerus fracture, recommend use of a sling, NWB to the affected area. Rest, ice, ice massage as needed. Regarding the left distal radius, this will require a closed reduction of the distal radius and then place her in a sugar-tong splint; NWB to the affected extremity. Regarding the finger fracture, the patient will be followed by the hand physician on-call. We will continue to monitor her as needed. Advised to watch for any worsening pain abnormal numbness or tingling, worsening change in heat or color of the extremity, worsening change in distal range of motion or strength and to seek immediate medical attention if seen. Please continue plan per hospitalist, Neurology as well. Appreciate the ability to assist in the care of this patient. Patient and imaging all seen and discussed in conjunction with Dr. Dow. /[id number]/MODL MTDGisel
[2018-09-03 10:57] LABS: PLATELET COUNT 162 10^3/uL (150-400)
--- NOTE | 2018-09-03 12:13 | SOAPPROG ---
SOAP Progress Note Assessment/Plan: Assessment: s/p trauma: closed left proximal humerus fracture, closed distal radius fracture -splinted and reduced by Dr. Dow on 09/02/2018, right hand digit 3 middle phalanx fracture. Overall doing well, pain well controlled. Plan: Will obtain radiographs of right knee as this is a new complaint during my visit today. NWB to LUE. Maintain sling and splint to LUE. DVT Prophylaxis: Continue chemoprophylaxis per hospitalists. Recommend EVANGELIST brewer in conjunction with SCDs. IS. Pain control: per hospitalists. PT/OT: appreciate their reccs. NWB to LUE, can begin AROM/PROM of left hand. Maintain sling and splint. RTC 3-7 days for repeat radiographs or prn additional questions/concerns which arise. Regarding finger fracture: continue to be managed by on-call hand. We are happy to assist in care of this if needed. Contact our office with questions/concerns: [phone] Advised patient and family to watch for worsening pain, change in ROM or strength, abnormal numbness/tingling, change in heat/color of extremities, cramping in her calves or ankles and to seek immediate medical attention if seen. Patient seen/examined in conjunction with Dr. Dow. 09/03/18 12:30 09/03/18 17:52 Regarding films of right knee: no fractures seen. 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 No limits at this time for right knee. WBAT. Subjective: Able to respond appropriately to questions/commands. Family in room and able to assist with finnish interpretation on words she has difficulty with. Sitting up in bed. Pain well controlled; has a new complaint of right knee pain which she states she contused in her fall yesterday. Has a prior h/o right knee pain for past 20 years; no h/o trauma otherwise noted to knee. Eating normally, passing flatus. Denies change in heat/color of extremity, cough , congestion, chest pain or shortness of breath, worsening pain over time, abnormal numbness/tingling, worsening change in distal ROM or strength, cramping in her calves or ankles. Objective: Vital Signs Temp Pulse Resp BP Pulse Ox 36.7 C 64 15 147/84 H 89 L 09/03/18 11:38 09/03/18 11:38 09/03/18 11:38 09/03/18 11:38 09/03/18 11:38 Laboratory Results 09/03/18 10:35 09/03/18 10:35 09/02/18 09/03/18 09/04/18 05:59 05:59 05:59 Intake Total 1100 Output Total 425 Balance 675 PT 12.9 SEC (12.0-15.0) 09/02/18 18:56 INR 0.95 (0.83-1.16) 09/02/18 18:56 AO, NAD, C-spine collar in place, non-labored breathing, no diaphoresis. Afebrile. Abdomen soft, non-tender. MS: Bilateral upper extremities: left shoulder with 1+ non-pitting edema, mild ecchymosis, all compartments soft. Left wrist in splint. Able to wiggle fingers without difficulty and attempt to make a full fist b/l. Right hand digit 3 bandaged, able to attempt active flexion/extension. No erythema, edema , ecchymosis or calor otherwise noted. Limited AROM of left shoulder secondary to severe pain to patient but is able to attempt AROM in FE, abduction. Is compliant in sling/splint. DNVI with no focal deficits noted. Negative passive stretch b/l. Brisk cap refill b/l. Right knee: skin intact; no erythema, edema, ecchymosis or calor. No change in heat/color of extremity. No abnormal bleeding/oozing/discharge noted. All compartments soft with negative passive stretch. AROM of right knee: 0-90 secondary to pain to patient. Has FROM distally in right foot/ankle with no focal deficits noted; 5/5 strength present in left foot/ankle. Ligaments all stable with negative Oscar, Bounce. Calves soft/supple and NTTP b/l with negative bilateral Homans b/l with EVANGELIST hose not present, yet SCDs on and pumping b/l. DNVI b/l in BLUE/BLLE with no focal deficits. Brisk cap refill b/l with pedal pulses intact b/l; no deficits ICD10 Worksheet Patient Problems: Problems Problem Status Onset Cervical spine fracture Acute Fall Acute Hand fracture Acute Hand laceration Acute Humeral surgical neck fracture Acute Hyponatremia Acute Wrist fracture Acute Epiglottitis Acute Esophagitis Acute GI bleed Acute Painful swallowing Acute
--- NOTE | 2018-09-03 13:54 | ASMTCMCOM ---
CM Note CM Note Notes: Chart reviewed. 82 year old female s/p fall admitted via ED for fall and subsequent fractures. PT and OT evaluations pending. HX of hypertension and hyponatremia. CM to follow for needs. Plan: TBD Date Signed: 09/03/2018 01:54 PM Electronically Signed By:Poornima Hinojosa RN
[2018-09-03] MEDS ORDERED: NS 1,000 ML IV SCH (15:15)
--- NOTE | 2018-09-03 16:57 | GCON ---
DATE OF CONSULTATION: 09/03/2018 REFERRING PHYSICIAN: Dr. Zarate REASON FOR CONSULTATION: I was asked by Dr. Zarate to see the patient in regard to her medical problems, including hyponatremia. HISTORY OF PRESENT ILLNESS: This is an 82-year-old female, who was admitted last night by the trauma service after a fall. She fell down an embankment. She tells me that she did not lose consciousness and this was not a syncopal episode. She was initially brought home by a bystander; however, was later brought to the emergency department by her son when he noted her to have a severe left arm injury. She currently lives alone by herself, her has been recently placed in a living facility. She tells me that she has been eating and drinking normally, and she has been told to drink salt in the past, which she does. She has not had any nausea vomiting, or diarrhea. Her urination has been normal up until this event. She is, however, not drinking very well since she has been in the hospital. PAST MEDICAL/SURGICAL HISTORY: 1. Hyponatremia. 2. Hypertension. 3. Duodenal ulcer. 4. Epiglottitis. 5. Esophagitis. MEDICATIONS: Please see medication reconciliation. ALLERGIES: Influenza vaccine. SOCIAL: She currently tells me that she lives by herself, though other notes say she lives with her son. She is , but her has been recently placed in a living facility. FAMILY HISTORY: Reviewed and noncontributory. REVIEW OF SYSTEMS: 10-point review of systems is conducted and is negative, except per HPI. PHYSICAL EXAM: VITAL SIGNS: Blood pressure 147/84, heart rate is 64, respiration rate 15, saturating at 98% on room air, temperature is 36.7. GENERAL: The patient is a pleasant elderly female who looks somewhat uncomfortable lying in bed, sideways. HEENT: Shows her to have a mild ecchymosis on her forehead. NECK: Shows her to be in a hard collar. CARDIOVASCULAR: Shows her to have regular rate and rhythm. There are no murmurs, rubs, or gallops. PULMONARY: Lungs clear to auscultation bilaterally. ABDOMEN: Soft, nontender, nondistended. SKIN: Shows a few areas of ecchymosis. : No Brown. NEUROLOGIC: Shows her to be alert and oriented x3. She has nonfocal neurologic exam. PSYCHIATRIC: Exam shows normal mood and affect. EXTREMITIES: Shows her left arm to be in a sling. LABORATORY DATA: White count is 10.8, INR 0.95. Sodium was initially 125 with a chloride of 93 up to 127 today, her bicarb today is 21, creatinine is normal, as is BUN. DATA: 1. Discussed with Dr. Zarate. 2. Cervical C-spine shows C1 and C2 fractures, as well as stable compression fractures of T1, T2, and T4. 3. Chest x-ray shows a proximal left humeral fracture. 4. Head CT shows nothing significant, no significant intracranial abnormality. 5. Shoulder x-ray shows the humeral fracture. 6. ECG shows sinus rhythm. It is a normal EKG. 7. Elbow x-ray is normal. 8. Finger x-ray shows 2 finger fractures. 9. Pelvic x-ray shows nothing acute. 10. Neck CT angiogram shows no occlusive disease. She does a 50% left vertebral artery stenosis. 11. Wrist x-ray shows a fracture. IMPRESSION/PLAN: 1. Fall with multiple orthopedic injuries: These are being managed by Trauma Surgery, Orthopedics, Hand Surgery, as well as Neurosurgery. She is in a hard C -spine collar at this point, as well as a left arm sling. 2. Hypernatremia: This is somewhat of a chronic problem for her. In review of her previous admissions as well as electrolytes, this appears to be hypovolemic. It is improved from 125 to 127 overnight with fluid. I have ordered urine electrolytes, but I assume that this is hypovolemic at this time. I will give her slow intravenous fluids overnight and recheck tomorrow. There may be a component of syndrome of inappropriate antidiuretic hormone secretion as well, but will follow for now. 3. Hypertension: She has been restarted on her home atenolol, lisinopril. Her blood pressures are appropriate for her age. Her last was 147/84. 4. Anemia: She is at her previous baseline, which was last measured in May this is normocytic. 5. DVT prophylaxis: Hold for now until it is clear she will not need surgery, but she is his risk for a clot. Start hang. Thank you for involving Hospital Medicine in the care of this patient. We will continue to follow with you. /[id number]/MODL MTDD
[2018-09-03] MEDS: OXYBUTYNIN CHLORIDE 5 MG TAB PO SCH (23:12)
--- NOTE | 2018-09-04 03:46 | GCON ---
INPATIENT CONSULTATION. CURRENT COMPLAINT: Right middle finger laceration. HISTORY OF PRESENT ILLNESS: This is an 82-year-old female who had an unwitnessed fall last night, wa s seen in the emergency room for multiple injuries, one of which was a right hand laceration that was irrigated and closed. I was asked to see the patient for further evaluation. PHYSICAL EXAMINATION: The patient remains grossly neurologically intact to the middle finger. She d oes have stitches in the finger; however, the patient has managed to remove some of the Steri-Strips around the area and upon exposure of the wound the patient immediately has put it into her mouth and is chewing on the sutures. ASSESSMENT AND PLAN: Patient is status post right middle finger laceration with middle phalanx fract ure via x-ray. The patient had the wound cleaned, dried, and dressed. Since she has been pulling of f the AlumaFoam splint, it was decided to use the ring and index finger as outriggers and they were i ncorporated into a dressing covering the entirety of the finger to ensure that she would have difficu lty biting through the dressing. We will continue to follow up with her on an outpatient basis. /[id number]/MODL
[2018-09-04] MEDS: HYDROCODONE/APAP 5/325 TAB PO PRN ×3 (05:46→22:42)
--- NOTE | 2018-09-04 06:28 | CPEKG ---
Test Reason : OPEN Blood Pressure : / mmHG Vent. Rate : 071 BPM Atrial Rate : 072 BPM P-R Int : 166 ms QRS Dur : 110 ms QT Int : 432 ms P-R-T Axes : 073 057 053 degrees QTc Int : 470 ms Sinus rhythm Confirmed by Juwan Gibson ([id number]) on 09/04/2018 6:27:33 AM Referred By: Confirmed By:Juwan Gibson
--- NOTE | 2018-09-04 08:07 | NEUSURGPN ---
Assessment/Plan: 82 yo female s/p fall with posterior ring C1 fractures, type III fracture through the base of the dens, 3 mm posterior displacement of the dens fracture - cervical hard collar - upright C-spine x-rays stable - PT/OT - no plans for surgery at this time - please contact us with any change sin neuro exam/status - stable from neurosurgery standpoint. May follow up as outpatient in 2-4 weeks with new C-spine x-rays. - Will sign off and follow peripherally. Please contact us with any further questions/concerns. Discussed with Dr. Schmitz. Subjective: No new overnight issues. Objective: Awake. Alert. Speech fluent. Facial expression symmetrical Moving all extremities Strength appears to be full- unable to fully assess due to other injuries Wearing hard collar - Physician Discussed Patient with Dr.: Schmitz Neurosurgery Physical Exam - Vitals, I&O, Labs I and O 09/03/18 09/04/18 09/05/18 05:59 05:59 05:59 Intake Total 1100 1295 Output Total 425 200 Balance 675 1095 Intake: Oral (ml) 500 IV Intake (ml) 795 IV Infused (ml) 1100 Output: Urine (ml) 425 200 Bedside Commode 425 200 Other: Intake Quantity No Sufficient Number of Voids Bedside Commode 1 1 Vital Signs Temp Pulse Resp BP Pulse Ox 36.3 C 60 16 177/88 H 100 09/03/18 15:42 09/03/18 15:42 09/03/18 15:42 09/03/18 15:42 09/03/18 15:42 Laboratory Results 09/03/18 10:35 09/04/18 04:21 ICD10 Worksheet Patient Problems: Problems Problem Status Onset Cervical spine fracture Acute Fall Acute Hand fracture Acute Hand laceration Acute Humeral surgical neck fracture Acute Hyponatremia Acute Wrist fracture Acute Epiglottitis Acute Esophagitis Acute GI bleed Acute Painful swallowing Acute
--- NOTE | 2018-09-04 08:38 | SOAPPROG ---
<Lynn Christopher S - Last Filed: 09/04/18 08:35> SOAP Progress Note Assessment/Plan: Assessment: s/p trauma: closed left proximal humerus fracture, closed distal radius fracture -splinted and reduced by Dr. Dow on 09/02/2018, right hand digit 3 middle phalanx fracture(being followed by hand ortho). Overall doing well, pain well controlled. Plan: NWB to LUE. Maintain sling and splint to LUE. WBAT to RLE. DVT Prophylaxis: Continue chemoprophylaxis per hospitalists. Recommend EVANGELIST hose in conjunction with SCDs. IS. Pain control: per hospitalists. PT/OT: appreciate their reccs. NWB to LUE, can begin AROM/PROM of left hand. Maintain sling and splint. RTC 3-7 days for repeat radiographs or prn additional questions/concerns which arise. Regarding finger fracture: continue to be managed by on-call hand. We are happy to assist in care of this if needed. Contact our office with questions/concerns: [phone] Advised patient and family to watch for worsening pain, change in ROM or strength, abnormal numbness/tingling, change in heat/color of extremities, cramping in her calves or ankles and to seek immediate medical attention if seen. Patient seen/examined in conjunction with Dr. Dow. Subjective: Able to respond appropriately to questions/commands. Alone in room. Sitting up in bed. Pain well controlled; has a new complaint of right knee pain which she states she contused in her fall; x-rays were negative. Has a prior h/o right knee pain for past 20 years; no h/o trauma otherwise noted to knee. Eating normally, passing flatus. Denies change in heat/color of extremity, cough , congestion, chest pain or shortness of breath, worsening pain over time, abnormal numbness/tingling, worsening change in distal ROM or strength, cramping in her calves or ankles. Objective: Vital Signs Temp Pulse Resp BP Pulse Ox 36.3 C 60 16 177/88 H 100 09/03/18 15:42 09/03/18 15:42 09/03/18 15:42 09/03/18 15:42 09/03/18 15:42 Laboratory Results 09/03/18 10:35 09/04/18 04:21 09/03/18 09/04/18 09/05/18 05:59 05:59 05:59 Intake Total 1100 1295 Output Total 425 200 Balance 675 1095 PT 12.9 SEC (12.0-15.0) 09/02/18 18:56 INR 0.95 (0.83-1.16) 09/02/18 18:56 AO, NAD, C-spine collar in place, non-labored breathing, no diaphoresis. Afebrile. Abdomen soft, non-tender. MS: Bilateral upper extremities: left shoulder with 1+ non-pitting edema, mild ecchymosis, all compartments soft. Left wrist in splint. Able to wiggle fingers without difficulty and attempt to make a full fist b/l. Right hand digit 3 bandaged, able to attempt active flexion/extension. No erythema, edema , ecchymosis or calor otherwise noted. Limited AROM of left shoulder secondary to severe pain to patient but is able to attempt AROM in FE, abduction. Is compliant in sling/splint. DNVI with no focal deficits noted. Negative passive stretch b/l. Brisk cap refill b/l. Right knee: skin intact; no erythema, edema, ecchymosis or calor. No change in heat/color of extremity. No abnormal bleeding/oozing/discharge noted. All compartments soft with negative passive stretch. AROM of right knee: 0-90 secondary to pain to patient. Has FROM distally in right foot/ankle with no focal deficits noted; 5/5 strength present in left foot/ankle. Ligaments all stable with negative Oscar, Bounce. Calves soft/supple and NTTP b/l with negative bilateral Homans b/l with EVANGELIST hose not present, yet SCDs on and pumping b/l. DNVI b/l in BLUE/BLLE with no focal deficits. Brisk cap refill b/l with pedal pulses intact b/l; no deficits ICD10 Worksheet Patient Problems: Problems Problem Status Onset Cervical spine fracture Acute Fall Acute Hand fracture Acute Hand laceration Acute Humeral surgical neck fracture Acute Hyponatremia Acute Wrist fracture Acute Epiglottitis Acute Esophagitis Acute GI bleed Acute Painful swallowing Acute <Abdoul Dow - Last Filed: 09/04/18 12:02> SOAP Progress Note Assessment/Plan: Assessment: Successful CR L DRFx is in jeopardy of being displaced and loss of reduction due to her repetitively removing her ROLANDO bandage and dismantling her splint. O/w doing well with L PHFx and sling. Plan: Strict NWB LUE, ST splint at all times. Replaced 3" ROLANDO bandage. Place RUE restraint to prevent her from removing ROLANDO and taking down splint, as this will risk loss of reduction at her L DRFx. Please call with any questions. O/ w see note above. 09/04/18 12:00 Subjective: Srikanth Martinez (RN), [place] repetitively has been removing her ROLANDO bandage and dismantling her LUE ST splint, regardless of reminders, warnings and mittens placed o/n. Objective: Vital Signs Temp Pulse Resp BP Pulse Ox 36.8 C 57 L 16 167/72 H 99 09/04/18 11:36 09/04/18 11:36 09/04/18 11:36 09/04/18 11:36 09/04/18 11:36 Laboratory Results 09/03/18 10:35 09/04/18 04:21 09/03/18 09/04/18 09/05/18 05:59 05:59 05:59 Intake Total 1100 1295 Output Total 425 200 150 Balance 675 1095 -150 PT 12.9 SEC (12.0-15.0) 09/02/18 18:56 INR 0.95 (0.83-1.16) 09/02/18 18:[address] splint is w/o distal ROLANDO bandage - ie. it has been removed. L hand is exposed, DNVI w/ mild edema. Splint is still generally in position.
[2018-09-04] MEDS: ATENOLOL 25 MG TAB PO SCH (08:43)
[2018-09-04] MEDS: PANTOPRAZOLE SODIUM 40 MG TAB PO SCH ×2 (08:43→19:59)
[2018-09-04] MEDS: CYANO/VITAMIN B12 1000 MCG TAB PO SCH (08:43)
[2018-09-04] MEDS: LISINOPRIL 20 MG TAB PO SCH (08:43)
--- NOTE | 2018-09-04 09:26 | TRAUMAPN ---
Trauma Progress Note Assessment/Plan: no overnight issues. no pain. no numbness or tingling. "I can't move on my own". AVSS. comfortable. neck collar fitting nicely. LUE sling in place. Right 3rd digit dressing clean. heart reg. lungs clear. abd nontender. pelvis nontender. TLS nontender. normal BLE. sensation intact BUE/BLE. 4/5 strength BLE. s/p fall - patient clarified history as noted in HPI - no LOC or amnesia to injury. C1/2 fracture without neuro deficit - continue [place] x 3months (at least). LUE numeral neck and distal radial fx - reduced and splinted - cont supportive care. Right 3rd digit phalynx fx with skin lac - repaired - no further rx needed here. Hyponatremia (chronic) 128 today - apprec hospitalist assist with ongoing medical needs. PT/OT - will need SNF upon discharge. Objective: Vital Signs Temp Pulse Resp BP Pulse Ox 36.8 C 56 L 17 165/66 H 91 L 09/04/18 08:00 09/04/18 08:43 09/04/18 08:00 09/04/18 08:43 09/04/18 08:00 Laboratory Results 09/03/18 10:35 09/04/18 04:21 09/03/18 09/04/18 09/05/18 05:59 05:59 05:59 Intake Total 1100 1295 Output Total 425 200 Balance 675 1095 PT 12.9 SEC (12.0-15.0) 09/02/18 18:56 INR 0.95 (0.83-1.16) 09/02/18 18:56
--- NOTE | 2018-09-04 11:28 | ASMTCMCOM ---
CM Note CM Note Notes: Pt does not qualify for [facility] inpatient rehab. Spoke with pt and son Jaya about SNF rec, choose [facility]. Referral sent in [employer]. Pt non-triggering PASRR completed. CM to follow. D/c plan of care: SNF, likely [facility] [place]. Date Signed: 09/04/2018 11:26 AM Electronically Signed By:YANE Moreno
--- NOTE | 2018-09-04 13:19 | HOSPPROG ---
Hospitalist Progress Note Assessment/Plan: 82 yo F w mechanical fall, multiple fractures, hyponatremia: hyponatremia: hypovolemic +/- poor solute intake, her lunch of pizza hughes and djiboutian fries should help follow daily c spine fracture: replaced hard collar encephalopathy: metabolic/toxic mild follow proph: rec lmwh unless contraindication fractures: per subspecialists Subjective: up eating. had taken hard collar off Objective: Vital Signs Temp Pulse Resp BP Pulse Ox 36.8 C 57 L 16 167/72 H 99 09/04/18 11:36 09/04/18 11:36 09/04/18 11:36 09/04/18 11:36 09/04/18 11:36 Laboratory Results 09/03/18 10:35 09/04/18 04:21 09/03/18 09/04/18 09/05/18 05:59 05:59 05:59 Intake Total 1100 1295 Output Total 425 200 150 Balance 675 1095 -150 PT 12.9 SEC (12.0-15.0) 09/02/18 18:56 INR 0.95 (0.83-1.16) 09/02/18 18:56 - Physical Exam Constitutional: no apparent distress, appears nourished Eyes: PERRL, anicteric sclera Ears, Nose, Mouth, Throat: moist mucous membranes, hearing normal Cardiovascular: regular rate and rhythym, no murmur, rub, or gallop Respiratory: no respiratory distress, no rales or rhonchi Gastrointestinal: normoactive bowel sounds, soft, non-tender abdomen Genitourinary: No cash in urethra Skin: warm, normal color Musculoskeletal: full muscle strength Neurologic: No AAOx3 ICD10 Worksheet Patient Problems: Problems Problem Status Onset Cervical spine fracture Acute Fall Acute Hand fracture Acute Hand laceration Acute Humeral surgical neck fracture Acute Hyponatremia Acute Wrist fracture Acute Epiglottitis Acute Esophagitis Acute GI bleed Acute Painful swallowing Acute
[2018-09-04] MEDS: ONDANSETRON DISINTEGRATING 4 MG TAB PO PRN ×2 (16:18→20:17)
[2018-09-04] MEDS: ACETAMINOPHEN 325 MG TAB PO PRN (16:18)
[2018-09-04] MEDS: OXYBUTYNIN CHLORIDE 5 MG TAB PO SCH (19:59)
[2018-09-05] MEDS: ONDANSETRON DISINTEGRATING 4 MG TAB PO PRN (05:49)
[2018-09-05] MEDS: ACETAMINOPHEN 325 MG TAB PO PRN ×2 (05:49→21:36)
--- NOTE | 2018-09-05 06:22 | SOAPPROG ---
ANDRZEJ Progress Note Assessment/Plan: Assessment: s/p trauma: closed left proximal humerus fracture, closed distal radius fracture -splinted and reduced by Dr. Dow on 09/02/2018, right hand digit 3 middle phalanx fracture(being followed by hand ortho). Overall doing ok, pain moderately controlled. Plan: NWB to LUE. Maintain sling and splint to LUE. WBAT to RLE. DVT Prophylaxis: Continue chemoprophylaxis per hospitalists. Recommend EVANGELIST brewer in conjunction with SCDs. IS. Pain control: per hospitalists. PT/OT: appreciate their reccs. NWB to LUE, can begin AROM/PROM of left hand. Maintain sling and splint. Follow-up 3-7 days for repeat radiographs or prn additional questions/concerns which arise. Regarding finger fracture: continue to be managed by on-call hand. But We are happy to assist in care of this if needed. Contact our office with questions/concerns: [phone] Advised patient and family to watch for worsening pain, change in ROM or strength, abnormal numbness/tingling, change in heat/color of extremities, cramping in her calves or ankles and to seek immediate medical attention if seen. Subjective: Subjective: Patient very tired this morning as she didnt sleep very well. Pain is moderately controlled. Denies any SOB, CP, or current Nausea/Vomiting. Objective: Vital Signs Temp Pulse Resp BP Pulse Ox 36.8 C 64 16 175/62 H 96 09/05/18 02:54 09/05/18 02:54 09/05/18 02:54 09/05/18 04:39 09/05/18 02:54 Laboratory Results 09/03/18 10:35 09/05/18 04:16 09/04/18 09/05/18 09/06/18 05:59 05:59 05:59 Intake Total 1295 900 Output Total 200 500 Balance 1095 400 PT 12.9 SEC (12.0-15.0) 09/02/18 18:56 INR 0.95 (0.83-1.16) 09/02/18 18:56 PHYSICAL EXAM LUE, RUE Moderate swelling. Sling in place. No open wounds. Distal Neurovasculature intact. ICD10 Worksheet Patient Problems: Problems Problem Status Onset Cervical spine fracture Acute Fall Acute Hand fracture Acute Hand laceration Acute Humeral surgical neck fracture Acute Hyponatremia Acute Wrist fracture Acute Epiglottitis Acute Esophagitis Acute GI bleed Acute Painful swallowing Acute
[2018-09-05] MEDS: CYANO/VITAMIN B12 1000 MCG TAB PO SCH (07:46)
[2018-09-05] MEDS: PANTOPRAZOLE SODIUM 40 MG TAB PO SCH ×2 (07:46→21:26)
[2018-09-05] MEDS: ATENOLOL 25 MG TAB PO SCH (07:46)
[2018-09-05] MEDS: HYDROCODONE/APAP 5/325 TAB PO PRN ×3 (07:46→16:36)
[2018-09-05] MEDS: LISINOPRIL 20 MG TAB PO SCH (07:47)
--- NOTE | 2018-09-05 09:51 | SOAPPROG ---
ANDRZEJ Progress Note Assessment/Plan: Assessment: TERTIARY EXAM 82-YEAR-OLD FEMALE STATUS POST A FALL WITH QUESTIONABLE LOC C1-C2 CERVICAL FRACTURE WITH NO SIGNIFICANT SYMPTOMS, PRESENTLY IN A CERVICAL COLLAR. THIS NEEDS TO BE REPLACED WITH A BETTER FITTING COLLAR MULTIPLE THORACIC COMPRESSION FRACTURES WHICH ARE ALSO ASYMPTOMATIC LEFT HUMERAL FRACTURE TREATED WITH SLING AND NONWEIGHTBEARING LEFT RADIAL FRACTURE SPLINTED AND REDUCED WITH FOLLOW-UP EVALUATION AND 3-7 DAYS RIGHT PHALANX FRACTURE HEENT WITHOUT EVIDENCE OF TRAUMA, NONICTERIC, PERRLA, EOMS INTACT CHEST CLEAR AND SYMMETRIC AND NONTENDER COR REGULAR RHYTHM ABDOMEN SOFT NONTENDER WITHOUT MASSES ORGANOMEGALY EXTREMITIES WITH MULTIPLE SPLINTS NOTED ABOVE NEURO: RESPONSIVE, COOPERATIVE BUT PERSEVERATING AND SOMEWHAT DISORIENTED SKIN NO MAJOR LESIONS ABRASIONS OR LACERATIONS EXCEPT ON HER 3RD FINGER NEW PROBLEM TODAY IS HYPONATREMIA WILL GET A MEDICAL CONSULTATION FOR AND FOLLOWUP SODIUM LEVEL SHE IS QUITE UNCOMFORTABLE IN HER CERVICAL COLLAR AND WE MAY NEED A BETTER FITTING COLLAR/NEUROSURGERY EVALUATING THAT Plan: CONTINUE SUPPORTIVE CARE WITH ORTHO A NEUROSURGERY FOLLOW-UP 09/03/18 09:48 09/05/18 09:44 VITAL SIGNS STABLE/AFEBRILE/MOVING REASONABLY WELL LEFT ARM IN A SLING/CERVICAL COLLAR IN PLACE CHEST CLEAR COR REGULAR RHYTHM ABDOMEN SOFT NONTENDER A MAJOR PROBLEM IS KEEPING HER CERVICAL COLLAR IN PLACE SHE CONTINUES TO TRY TO REMOVE IT FREQUENTLY/RISKS AND OPTIONS BEEN FULLY DISCUSSED PLAN: SHE WILL NEED REHAB SOON Objective: Vital Signs Temp Pulse Resp BP Pulse Ox 36.8 C 71 16 171/80 H 95 09/05/18 07:44 09/05/18 07:46 09/05/18 07:44 09/05/18 07:47 09/05/18 07:44 Laboratory Results 09/03/18 10:35 09/05/18 04:16 09/04/18 09/05/18 09/06/18 05:59 05:59 05:59 Intake Total 1295 900 Output Total 200 500 Balance 1095 400 PT 12.9 SEC (12.0-15.0) 09/02/18 18:56 INR 0.95 (0.83-1.16) 09/02/18 18:56 ICD10 Worksheet Patient Problems: Problems Problem Status Onset Cervical spine fracture Acute Fall Acute Hand fracture Acute Hand laceration Acute Humeral surgical neck fracture Acute Hyponatremia Acute Wrist fracture Acute Epiglottitis Acute Esophagitis Acute GI bleed Acute Painful swallowing Acute
--- NOTE | 2018-09-05 10:07 | HOSPPROG ---
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 fluid restrict 2000 cc/day follow daily may need to tighten fluid restriction if not improving c spine fracture: replaced hard collar encephalopathy: metabolic/toxic mild follow proph: rec lmwh unless contraindication fractures: per subspecialists Subjective: urine Na, Uosm c/w siadh Objective: Vital Signs Temp Pulse Resp BP Pulse Ox 36.8 C 71 16 171/80 H 95 09/05/18 07:44 09/05/18 07:46 09/05/18 07:44 09/05/18 07:47 09/05/18 07:44 Laboratory Results 09/03/18 10:35 09/05/18 04:16 09/04/18 09/05/18 09/06/18 05:59 05:59 05:59 Intake Total 1295 900 Output Total 200 500 Balance 1095 400 PT 12.9 SEC (12.0-15.0) 09/02/18 18:56 INR 0.95 (0.83-1.16) 09/02/18 18:56 - Physical Exam Constitutional: no apparent distress, appears nourished Eyes: PERRL, anicteric sclera Ears, Nose, Mouth, Throat: moist mucous membranes, hearing normal Cardiovascular: regular rate and rhythym, no murmur, rub, or gallop Respiratory: no respiratory distress, no rales or rhonchi Gastrointestinal: normoactive bowel sounds, soft, non-tender abdomen Genitourinary: no bladder fullness, No cash in urethra Skin: warm, normal color Musculoskeletal: full muscle strength Neurologic: AAOx3 ICD10 Worksheet Patient Problems: Problems Problem Status Onset Cervical spine fracture Acute Fall Acute Hand fracture Acute Hand laceration Acute Humeral surgical neck fracture Acute Hyponatremia Acute Wrist fracture Acute Epiglottitis Acute Esophagitis Acute GI bleed Acute Painful swallowing Acute
[2018-09-05] MEDS: OXYBUTYNIN CHLORIDE 5 MG TAB PO SCH (21:26)
[2018-09-06] MEDS: ATENOLOL 25 MG TAB PO SCH (07:58)
[2018-09-06] MEDS: HYDROCODONE/APAP 5/325 TAB PO PRN ×3 (07:58→20:11)
[2018-09-06] MEDS: LISINOPRIL 20 MG TAB PO SCH (07:58)
[2018-09-06] MEDS: CYANO/VITAMIN B12 1000 MCG TAB PO SCH (07:59)
[2018-09-06] MEDS: PANTOPRAZOLE SODIUM 40 MG TAB PO SCH ×2 (07:59→20:11)
[2018-09-06] MEDS: ONDANSETRON 4 MG/2 ML VIAL IVP PRN (08:09)
[2018-09-06] MEDS: AMMONIUM LACTATE 12% 8 OZ LOTION TP SCH (08:11)
--- NOTE | 2018-09-06 12:38 | TRAUMAPN ---
Trauma Progress Note - Problem/Surgery Performed (1) Fracture of thoracic spine Assessment/Plan: etiology of back pain/neurosurgery consult requested will observe sspine precautions Qualifiers: Encounter type: initial encounter Thoracic vertebra fracture level: T6 Fracture type: closed Fracture morphology: burst- unstable Qualified Code(s) : S22.052A - Unstable burst fracture of T5-T6 vertebra, initial encounter for closed fracture (2) Cervical spine fracture Assessment/Plan: C1 and C2 fx without neuro deficit /fitted with a [place] J collar, patient is compliant with her collar but has been noted to remove it herself Qualifiers: Encounter type: initial encounter Cervical vertebra fracture level: C1 Fracture type: closed Fracture morphology: other fracture Fracture alignment : nondisplaced Qualified Code(s): S12.091A - Other nondisplaced fracture of first cervical vertebra, initial encounter for closed fracture (3) Fall Assessment/Plan: mechanism of injury/high risk for repeat fall with multiple injuries and inability to use her left arm for support Qualifiers: Encounter type: initial encounter Qualified Code(s): W19.XXXA - Unspecified fall, initial encounter (4) Hand fracture Qualifiers: Encounter type: initial encounter Fracture type: closed Laterality: right Qualified Code(s): S62.91XA - Unspecified fracture of right wrist and hand, initial encounter for closed fracture (5) Hand laceration Qualifiers: Encounter type: initial encounter Foreign body presence: without foreign body Laterality: right Qualified Code(s): S61.411A - Laceration without foreign body of right hand, initial encounter (6) Humeral surgical neck fracture Assessment/Plan: non-operative management with a sling/discussed with Qualifiers: Encounter type: initial encounter Fracture type: closed Fracture morphology: unspecified fracture morphology Fracture alignment: nondisplaced Laterality: left Qualified Code(s): S42.215A - Unspecified nondisplaced fracture of surgical neck of left humerus, initial encounter for closed fracture (7) Hyponatremia Assessment/Plan: chronic problem/discussed with hospitalist service, will continue fluid restriction and monitor (8) Wrist fracture Assessment/Plan: distal radius fx s/p closed reduction, patient has been unraveling her posterior splint ROLANDO wrap. Dr. Dow is concerned that she may require ORIF if she is non-compliant with immobilization Qualifiers: Encounter type: initial encounter Fracture type: closed Laterality: left Qualified Code(s): S62.102A - Fracture of unspecified carpal bone, left wrist , initial encounter for closed fracture Subjective: patient complaining of back pain/awake and alert O x 2 Objective: Vital Signs Temp Pulse Resp BP Pulse Ox 36.7 C 74 18 175/99 H 97 09/06/18 07:31 09/06/18 07:58 09/06/18 07:31 09/06/18 07:58 09/06/18 07:31 Laboratory Results 09/03/18 10:35 09/05/18 04:16 09/05/18 09/06/18 09/07/18 05:59 05:59 05:59 Intake Total 900 100 Output Total 500 1300 100 Balance 400 -1200 -100 PT 12.9 SEC (12.0-15.0) 09/02/18 18:56 INR 0.95 (0.83-1.16) 09/02/18 18:56 - C-Spine Clearance Cervical Spine Cleared: No Physical Exam - Physical Exam General Appearance: mild distress, thin, other (frail appearing elderly female, bilingual, but hard to understand speech in [place] or Croatian) Neck: other ([place] J collar in place) Respiratory: lungs clear, decreased breath sounds Cardiac/Chest: regular rate, rhythm Abdomen: non-tender, soft Pelvic Exam: deferred Rectal: deferred Back: Other (tenderness mid thoracic spinous process T5-T7) Extremities: other (LUE splint) Neuro/Psych: alert, sensory deficit (decreased sensation dorsum of left hand), other (Ox2 (person and place), no focal motor defecits but with global weakness , gait testing not performed)
--- NOTE | 2018-09-06 13:18 | NEUSURGPN ---
Assessment/Plan: 82 yo female s/p fall with posterior ring C1 fractures, type III fracture through the base of the dens, 3 mm posterior displacement of the dens fracture and now findings of T6 burst fracture -CT thoracic shows T6 burst fracture, acture non displaced T8 fracture, old T2 endplate fracture -Will get thoracic MRI to eval compression, patient currently neuro intact - Patient currently in cervical hard collar, will have [employer] fit with CELL GENETICIST brace to treat both cervical and thoracic fractures. - upright C-spine x-rays stable - PT/OT-as able once fitted with CELL GENETICIST -Discussed and reviewed thoracic CT with Dr Schmitz - please contact us with any change sin neuro exam/status Subjective: back pain Objective: AxO x3 PERRLA Tender to palpation thoracic MAEx4 5/5 BUE, BLE Collar in place Neuro Check Frequency: per routine Urinary Catheter in Place: No - Physician Discussed Patient with Dr.: Schmitz Neurosurgery Physical Exam - Vitals, I&O, Labs I and O 09/05/18 09/06/18 09/07/18 05:59 05:59 05:59 Intake Total 900 100 Output Total 500 1300 100 Balance 400 -1200 -100 Intake: Oral (ml) 900 100 Output: Urine (ml) 500 1300 100 Bedside Commode 500 1300 100 Other: Intake Quantity Yes Yes Sufficient Number of Voids Bedside Commode 1 2 Vital Signs Temp Pulse Resp BP Pulse Ox 36.7 C 62 18 185/81 H 98 09/06/18 12:38 09/06/18 12:38 09/06/18 12:38 09/06/18 12:38 09/06/18 12:38 Laboratory Results 09/03/18 10:35 09/05/18 04:16 ICD10 Worksheet Patient Problems: Problems Problem Status Onset Cervical spine fracture Acute Fall Acute Fracture of thoracic spine Acute Hand fracture Acute Hand laceration Acute Humeral surgical neck fracture Acute Hyponatremia Acute Wrist fracture Acute Epiglottitis Acute Esophagitis Acute GI bleed Acute Painful swallowing Acute
--- NOTE | 2018-09-06 13:20 | HOSPPROG ---
Hospitalist Progress Note Assessment/Plan: Hospitalist Progress Note Assessment/Plan: 82 yo F w mechanical fall, multiple fractures, hyponatremia. First encounter, chart reviewed. D/W Dr Thorep and neurosurgery. 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 Some nausea. Objective: Vital Signs Temp Pulse Resp BP Pulse Ox 36.7 C 62 18 185/81 H 98 09/06/18 12:38 09/06/18 12:38 09/06/18 12:38 09/06/18 12:38 09/06/18 12:38 Laboratory Results 09/03/18 10:35 09/05/18 04:16 09/05/18 09/06/18 09/07/18 05:59 05:59 05:59 Intake Total 900 100 Output Total 500 1300 100 Balance 400 -1200 -100 PT 12.9 SEC (12.0-15.0) 09/02/18 18:56 INR 0.95 (0.83-1.16) 09/02/18 18:56 - Physical Exam Constitutional: appears nourished, chronically ill appearing, uncomfortable Eyes: PERRL, anicteric sclera, EOMI Ears, Nose, Mouth, Throat: moist mucous membranes, ears appear normal, hard of hearing Cardiovascular: regular rate and rhythym, No JVD, No edema Respiratory: no respiratory distress, no rales or rhonchi, reduced air movement Gastrointestinal: normoactive bowel sounds, No tenderness, No ascites Skin: warm, normal color, No mottled Musculoskeletal: pain with ROM, muscular tenderness, abnormal gait, generalized weakness Neurologic: AAOx3 Psychiatric: not anxious, not encephalopathic, poor insight, poor judgement, poor memory ICD10 Worksheet Patient Problems: Problems Problem Status Onset Epiglottitis Acute GI bleed Acute Hyponatremia Acute Painful swallowing Acute Esophagitis Acute Fall Acute Humeral surgical neck fracture Acute Cervical spine fracture Acute Wrist fracture Acute Hand laceration Acute Hand fracture Acute Fracture of thoracic spine Acute
--- NOTE | 2018-09-06 15:28 | SOAPPROG ---
SOAP Progress Note Assessment/Plan: Assessment: s/p trauma: closed left proximal humerus fracture, closed distal radius fracture -splinted and reduced by Dr. Dow on 09/02/2018, right hand digit 3 middle phalanx fracture(being followed by hand ortho). Overall doing well, pain well controlled. Per attending Dr. Adkins she should be clear for intubation/GETA if surgery needed. Plan: NWB to LUE. Maintain sling and splint to LUE. Splint in good position at this time. New thoracic burst fx being evaluated by neuro: continue plan per their reccs. WBAT to RLE. DVT Prophylaxis: Continue chemoprophylaxis per hospitalists. Recommend EVANGELIST brewer in conjunction with SCDs. IS. Pain control: per hospitalists. PT/OT: appreciate their reccs. NWB to LUE, can begin AROM/PROM of left hand. Maintain sling and splint at this time. Please use restraints on RUE as she does attempt to take off her splint regularly. RTC 3-7 days for repeat radiographs or prn additional questions/concerns which arise. Regarding finger fracture: continue to be managed by on-call hand. We are happy to assist in care of this if needed. Contact our office with questions/concerns: [phone] Advised patient and family to watch for worsening pain, change in ROM or strength, abnormal numbness/tingling, change in heat/color of extremities, cramping in her calves or ankles and to seek immediate medical attention if seen. Patient seen/examined in conjunction with Dr. Dow. 09/06/18 15:27 Subjective: Able to respond appropriately to questions/commands. Laying down in bed. Pain well controlled; has a new complaint of right knee pain which she states she contused in her fall, pain baseline at knee; x-rays were negative. Has a prior h/o right knee pain for past 20 years; no h/o trauma otherwise noted to knee. Eating normally, passing flatus. Denies change in heat/color of extremity, cough , congestion, chest pain or shortness of breath, worsening pain over time, abnormal numbness/tingling, worsening change in distal ROM or strength, cramping in her calves or ankles. Is in splint during my visit today. Objective: Vital Signs Temp Pulse Resp BP Pulse Ox 36.7 C 62 18 185/81 H 98 09/06/18 12:38 09/06/18 12:38 09/06/18 12:38 09/06/18 12:38 09/06/18 12:38 Laboratory Results 09/03/18 10:35 09/05/18 04:16 09/05/18 09/06/18 09/07/18 05:59 05:59 05:59 Intake Total 900 100 Output Total 500 1300 300 Balance 400 -1200 -300 PT 12.9 SEC (12.0-15.0) 09/02/18 18:56 INR 0.95 (0.83-1.16) 09/02/18 18:56 AO, NAD, C-spine collar in place, non-labored breathing, no diaphoresis. Afebrile. Abdomen soft, non-tender. MS: Bilateral upper extremities: left shoulder with 1+ non-pitting edema, mild ecchymosis, all compartments soft. Left wrist in splint. Able to wiggle fingers without difficulty and attempt to make a full fist b/l. Right hand digit 3 no longer bandaged, able to attempt active flexion/extension, sutures in place. No erythema, edema, ecchymosis or calor otherwise noted. Limited AROM of left shoulder secondary to severe pain to patient but is able to attempt AROM in FE, abduction. Is compliant in sling/splint. DNVI with no focal deficits noted. Negative passive stretch b/l. Brisk cap refill b/l. Right knee: skin intact; no erythema, edema, ecchymosis or calor. No change in heat/color of extremity. No abnormal bleeding/oozing/discharge noted. All compartments soft with negative passive stretch. AROM of right knee: 0-90 secondary to pain to patient. Has FROM distally in right foot/ankle with no focal deficits noted; 5/5 strength present in left foot/ankle. Ligaments all stable with negative Oscar, Bounce. Calves soft/supple and NTTP b/l with negative bilateral Homans b/l with EVANGELIST hose not present, yet SCDs on and pumping b/l. DNVI b/l in BLUE/BLLE with no focal deficits. Brisk cap refill b/l with pedal pulses intact b/l; no deficits ICD10 Worksheet Patient Problems: Problems Problem Status Onset Cervical spine fracture Acute Fall Acute Fracture of thoracic spine Acute Hand fracture Acute Hand laceration Acute Humeral surgical neck fracture Acute Hyponatremia Acute Wrist fracture Acute Epiglottitis Acute Esophagitis Acute GI bleed Acute Painful swallowing Acute
[2018-09-06] MEDS: OXYBUTYNIN CHLORIDE 5 MG TAB PO SCH (20:11)
[2018-09-07] MEDS: HYDROCODONE/APAP 5/325 TAB PO PRN ×5 (03:42→21:26)
--- NOTE | 2018-09-07 07:55 | NEUSURGPN ---
Assessment/Plan: 82 yo female s/p fall with posterior ring C1 fractures, type III fracture through the base of the dens, 3 mm posterior displacement of the dens fracture and now findings of T6 burst fracture -CT thoracic shows T6 burst fracture, acture non displaced T8 fracture, old T2 endplate fracture -Patient was unable to complete MRI, what was completed showed mild to moderate central canal narrowing at T6 with posterior cortical bulge. Posterior cortex abuts but does not compress the cord. Subtle acute fracture at the superior endplate of T1, inferior endplate T2, superior endplate of T4 and inferior body of T8. No retropulsion seen. 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 TRUCK INSTALLATION MECHANIC in place Neuro Check Frequency: per routine Urinary Catheter in Place: No - Physician Discussed Patient with : [facility] Physical Exam - Vitals, I&O, Labs I and O 09/06/18 09/07/18 09/08/18 05:59 05:59 05:59 Intake Total 100 750 Output Total 1300 650 Balance -1200 100 Intake: Oral (ml) 100 750 Output: Urine (ml) 1300 650 Bedside Commode 1300 650 Other: Intake Quantity Yes Sufficient Number of Voids Bedside Commode 2 1 Vital Signs Temp Pulse Resp BP Pulse Ox 36.9 C 63 16 161/62 H 97 09/07/18 07:37 09/07/18 07:37 09/07/18 07:37 09/07/18 07:37 09/07/18 07:37 Laboratory Results 09/03/18 10:35 09/07/18 04:30 ICD10 Worksheet Patient Problems: Problems Problem Status Onset Cervical spine fracture Acute Fall Acute Fracture of thoracic spine Acute Hand fracture Acute Hand laceration Acute Humeral surgical neck fracture Acute Hyponatremia Acute Wrist fracture Acute Epiglottitis Acute Esophagitis Acute GI bleed Acute Painful swallowing Acute
[2018-09-07] MEDS: ATENOLOL 25 MG TAB PO SCH (08:05)
[2018-09-07] MEDS: PANTOPRAZOLE SODIUM 40 MG TAB PO SCH ×2 (08:06→21:23)
[2018-09-07] MEDS: LISINOPRIL 20 MG TAB PO SCH (08:06)
[2018-09-07] MEDS: CYANO/VITAMIN B12 1000 MCG TAB PO SCH (08:06)
--- NOTE | 2018-09-07 08:36 | TRAUMAPN ---
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 Pt not a surgical candidate, will need to work on better pain control regimen. Pulm: ALEC, lungs are clear CV: HDS Abdomen: soft, ND, NT. Bowel regimen Renal: voiding. Na low, likely chronic. Heme: stable, LMWH Id: afebrile Ortho: fx as above, all non-op Dispo: pain control, brace doesnt seem to have done much. SNF bed waiting when appropriate. Subjective: still having pain Objective: Vital Signs Temp Pulse Resp BP Pulse Ox 36.9 C 63 16 161/62 H 97 09/07/18 07:37 09/07/18 07:37 09/07/18 07:37 09/07/18 07:37 09/07/18 07:37 Laboratory Results 09/03/18 10:35 09/07/18 04:30 09/06/18 09/07/18 09/08/18 05:59 05:59 05:59 Intake Total 100 750 Output Total 1300 650 Balance -1200 100 PT 12.9 SEC (12.0-15.0) 09/02/18 18:56 INR 0.95 (0.83-1.16) 09/02/18 18:56 - C-Spine Clearance Cervical Spine Cleared: No
--- NOTE | 2018-09-07 08:51 | SOAPPROG ---
[facility] Progress Note Assessment/Plan: Assessment: s/p trauma: closed left proximal humerus fracture, closed distal radius fracture -splinted and reduced by Dr. Dow on 09/02/2018, right hand digit 3 middle phalanx fracture(being followed by hand ortho). Overall doing well, pain well controlled this morning and she is less agitated than my visit with her yesterday. Per attending Dr. Adkins she should be clear for intubation/GETA if surgery needed. Plan: NWB to LUE. Maintain sling and splint to LUE. Splint in good position at this time. New thoracic burst fx being evaluated by neuro: continue plan per their reccs. TLSO in place. WBAT to RLE. DVT Prophylaxis: Continue chemoprophylaxis per hospitalists. Recommend EVANGELIST brewer in conjunction with SCDs; asked RN to place this am. IS. Pain control: per hospitalists. PT/OT: appreciate their reccs. NWB to LUE, can begin AROM/PROM of left hand. Maintain sling and splint at this time. In good position this am. Please use restraints on RUE as she does attempt to take off her splint regularly as tolerated. RTC 3-7 days for repeat radiographs or prn additional questions/concerns which arise. Regarding finger fracture: continue to be managed by on-call hand. We are happy to assist in care of this if needed. Contact our office with questions/concerns: [phone] Advised patient and family to watch for worsening pain, change in ROM or strength, abnormal numbness/tingling, change in heat/color of extremities, cramping in her calves or ankles and to seek immediate medical attention if seen. Patient seen/examined in conjunction with Dr. Dow. 09/07/18 08:51 Subjective: Able to respond appropriately to questions/commands. Alone in room. Laying down in bed with collars in place. Pain well controlled and she is less agitated today compared to my visit with her yesterday. Eating normally, passing flatus. Denies change in heat/color of extremity, cough, congestion, chest pain or shortness of breath, worsening pain over time, abnormal numbness/ tingling, worsening change in distal ROM or strength, cramping in her calves or ankles. Is in splint during my visit today as well as sling. No change to splint compared to yesterday. Objective: Vital Signs Temp Pulse Resp BP Pulse Ox 36.9 C 63 16 161/62 H 97 09/07/18 07:37 09/07/18 07:37 09/07/18 07:37 09/07/18 07:37 09/07/18 07:37 Laboratory Results 09/03/18 10:35 09/07/18 04:30 09/06/18 09/07/18 09/08/18 05:59 05:59 05:59 Intake Total 100 750 Output Total 1300 650 Balance -1200 100 PT 12.9 SEC (12.0-15.0) 09/02/18 18:56 INR 0.95 (0.83-1.16) 09/02/18 18:56 AO, NAD, C-spine collar and TLSO in place, non-labored breathing, no diaphoresis. Afebrile. Abdomen soft, non-tender. MS: Bilateral upper extremities: left shoulder with 1+ non-pitting edema, mild ecchymosis, all compartments soft. Left wrist in splint with no disruption in splinting materials seen today. Able to wiggle fingers without difficulty and attempt to make a full fist b/l. Right hand digit 3 no longer bandaged, able to attempt active flexion/extension, sutures in place. No erythema, edema, ecchymosis or calor otherwise noted. Limited AROM of left shoulder secondary to severe pain to patient but is able to attempt AROM in FE, abduction. Is compliant in sling/splint at this time. DNVI with no focal deficits noted. Negative passive stretch b/l. Brisk cap refill b/l. Non-focal exam of b/l lower extremities: Calves soft/supple and NTTP b/l with negative bilateral Homans b/l with EVANGELIST hose and SCDs both not present during exam. DNVI b/l in BLUE/BLLE with no focal deficits. Brisk cap refill b/l with pedal pulses intact b/l; no deficits ICD10 Worksheet Patient Problems: Problems Problem Status Onset Cervical spine fracture Acute Fall Acute Fracture of thoracic spine Acute Hand fracture Acute Hand laceration Acute Humeral surgical neck fracture Acute Hyponatremia Acute Wrist fracture Acute Epiglottitis Acute Esophagitis Acute GI bleed Acute Painful swallowing Acute
[2018-09-07] MEDS: ONDANSETRON DISINTEGRATING 4 MG TAB PO PRN ×2 (10:32→16:26)
[2018-09-07] MEDS: AMMONIUM LACTATE 12% 8 OZ LOTION TP SCH (12:18)
--- NOTE | 2018-09-07 13:09 | HOSPPROG ---
Hospitalist Progress Note Assessment/Plan: Hospitalist Progress Note Assessment/Plan: 82 yo F w mechanical fall, multiple fractures, hyponatremia. 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 Pain in back and nausea. Objective: Vital Signs Temp Pulse Resp BP Pulse Ox 36.8 C 67 16 149/65 H 89 L 09/07/18 12:00 09/07/18 12:00 09/07/18 12:00 09/07/18 12:00 09/07/18 12:00 Laboratory Results 09/03/18 10:35 09/07/18 04:30 09/06/18 09/07/18 09/08/18 05:59 05:59 05:59 Intake Total 100 750 240 Output Total 1300 650 200 Balance -1200 100 40 PT 12.9 SEC (12.0-15.0) 09/02/18 18:56 INR 0.95 (0.83-1.16) 09/02/18 18:56 - Physical Exam Constitutional: chronically ill appearing, uncomfortable Eyes: PERRL, anicteric sclera Ears, Nose, Mouth, Throat: moist mucous membranes, ears appear normal, hard of hearing Cardiovascular: regular rate and rhythym, No JVD Respiratory: no respiratory distress, reduced air movement Gastrointestinal: No tenderness, No ascites Skin: warm, normal color Musculoskeletal: pain with ROM, generalized weakness Neurologic: No AAOx3 Psychiatric: agitated, poor insight, poor judgement, poor memory, No thought process linear ICD10 Worksheet Patient Problems: Problems Problem Status Onset Epiglottitis Acute GI bleed Acute Hyponatremia Acute Painful swallowing Acute Esophagitis Acute Fall Acute Humeral surgical neck fracture Acute Cervical spine fracture Acute Wrist fracture Acute Hand laceration Acute Hand fracture Acute Fracture of thoracic spine Acute
--- NOTE | 2018-09-07 14:21 | ASMTCMCOM ---
CM Note CM Note Notes: D/c plan remains [facility], [facility] and [facility] updated. Pt likely d/c tomorrow. Date Signed: 09/07/2018 02:20 PM Electronically Signed By:YANE Moreno
[2018-09-07] MEDS: SODIUM CHLORIDE 1,000 MG TAB PO SCH (19:22)
[2018-09-07] MEDS: OXYBUTYNIN CHLORIDE 5 MG TAB PO SCH (21:23)
[2018-09-08] MEDS: HYDROCODONE/APAP 5/325 TAB PO PRN ×3 (01:55→14:41)
--- NOTE | 2018-09-08 07:14 | SOAPPROG ---
SOAP Progress Note Assessment/Plan: Assessment/Plan: 83 yo F s/p mechanical fall closed left proximal humerus fracture -Cont PT/OT, pt will remain NWB of LUE, maintain sling at all times -Cont to monitor for removal of splint/sling -Cont current pain regimen, encourage PO as tolerated, caution for confusion/ agitation -Cont SCDs and TEDs for VTE mechanical prophylaxis -Cont VTE chemoprophylaxis per hospitalist service -Pt will RTC 3-7 days for repeat radiographs upon d/c -Ok to d/c per ortho standpoint in regards to LUE closed left distal radius fracture s/p closed reduction performed by Dr. Dow on 09/02/2018 -Cont PT/OT, pt will remain NWB of LUE, maintain splint at all times -Cont to monitor for removal of splint/sling -Cont current pain regimen, encourage PO as tolerated, caution for confusion/ agitation -Ice prn -Cont SCDs and TEDs for VTE mechanical prophylaxis -Cont VTE chemoprophylaxis per hospitalist service -Pt will RTC 3-7 days for repeat radiographs upon d/c -Ok to d/c per ortho standpoint in regards to LUE R hand III finger P2 fx, laceration -Cont care per Dr. Goldman Multiple T spine compression fractures -Cont care per neuro, TLSO in place 09/08/18 07:08 09/08/18 09:25 Subjective: Pt seen at bedside. She reports moderate to severe pain in her back, but denies significant pain in her LUE. She states she has left her sling and splint in place. She states no current nausea. She has no additional concerns or complaints at this time. Per nursing report, pt has been restless overnight, complaining of continued upper back pain, and stating her TLSO is uncomfortable. She has remained agitated, but does not seem exacerbated by pain regimen. Per PT report this am , pt was up and able to sit comfortably yesterday, and has been compliant with her NWB status of the LUE. They have no additional concerns or complaints at this time. Objective: Vital Signs Temp Pulse Resp BP Pulse Ox 36.8 C 74 18 145/84 H 94 09/07/18 23:33 09/07/18 23:33 09/07/18 23:33 09/07/18 23:33 09/07/18 23:33 Laboratory Results 09/03/18 10:35 09/08/18 05:09 09/07/18 09/08/18 09/09/18 05:59 05:59 05:59 Intake Total 750 240 Output Total 650 625 Balance 100 -385 PT 12.9 SEC (12.0-15.0) 09/02/18 18:56 INR 0.95 (0.83-1.16) 09/02/18 18:56 Patient seen at bedside. VSS, mild distress, responding appropriately, agitated. Exam of the left upper arm reveals mild ecchymosis. Pt is slightly tender proximally without crepitus. Upper arm compartments are supple. Left wrist with intact splint, sling in place. No surrounding erythema, calor, discharge or induration. Pt is able to flex/ext fingers without difficulty and make a light composite fist. Pt is intact to light touch sensation distally, as well as in the axillary, median, radial and ulnar nerve distribution. Capillary refill <2sec in the finger pulps, DNVI BUE. Exam of the BLE reveal NTTP of the posterior calves, no palpable vascular cords, neg Sumit's bilat. DNVI BLE. ICD10 Worksheet Patient Problems: Problems Problem Status Onset Cervical spine fracture Acute Fall Acute Fracture of thoracic spine Acute Hand fracture Acute Hand laceration Acute Humeral surgical neck fracture Acute Hyponatremia Acute Wrist fracture Acute Epiglottitis Acute Esophagitis Acute GI bleed Acute Painful swallowing Acute
[2018-09-08] MEDS: ATENOLOL 25 MG TAB PO SCH (09:38)
[2018-09-08] MEDS: LISINOPRIL 20 MG TAB PO SCH (09:38)
[2018-09-08] MEDS: CYANO/VITAMIN B12 1000 MCG TAB PO SCH (09:39)
[2018-09-08] MEDS: PANTOPRAZOLE SODIUM 40 MG TAB PO SCH ×2 (09:39→21:23)
[2018-09-08] MEDS: SODIUM CHLORIDE 1,000 MG TAB PO SCH ×2 (09:39→18:09)
--- NOTE | 2018-09-08 09:52 | SOAPPROG ---
SOAP Progress Note Assessment/Plan: Assessment/Plan: 82 yo female s/p fall with posterior ring C1 fractures, type III fracture through the base of the dens, 3 mm posterior displacement of the dens fracture and now findings of T6 burst fracture. 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 Patient is not a good candidate for kyphoplasty. With the posterior cortex disruption, she is at a higher risk for cement leaking into the canal. We will continue to follow in AGRISCIENCE TEACHER brace. Continue with pain management for now, may consider surgery if pain does not get controlled. -CT thoracic shows T6 burst fracture, acute- non displaced T8 fracture, old T2 endplate fracture -Patient was unable to complete MRI, what was completed showed mild to moderate central canal narrowing at T6 with posterior cortical bulge. Posterior cortex abuts but does not compress the cord. Subtle acute fracture at the superior endplate of T1, inferior endplate T2, superior endplate of T4 and inferior body of T8. No retropulsion seen. - PT/OT-as able - please contact us with any change sin neuro exam/status Subjective: awake, alert, comfortable. Son present. patient denies numbness, tingling/ weakness. Was standing yesterday and in bedside chair as well with good strength. Objective: Vital Signs Temp Pulse Resp BP Pulse Ox 36.6 C 77 16 162/95 H 94 09/08/18 08:00 09/08/18 09:38 09/08/18 08:00 09/08/18 09:38 09/08/18 08:00 Laboratory Results 09/03/18 10:35 09/08/18 05:09 09/07/18 09/08/18 09/09/18 05:59 05:59 05:59 Intake Total 750 240 100 Output Total 650 625 Balance 100 -385 100 PT 12.9 SEC (12.0-15.0) 09/02/18 18:56 INR 0.95 (0.83-1.16) 09/02/18 18:56 Neuro: A+Ox4 follows commands, speech clear 5/5 bilateral LE, sens +LT Thoiracic xrays from 09/07: Stable alignment. ICD10 Worksheet Patient Problems: Problems Problem Status Onset Cervical spine fracture Acute Fall Acute Fracture of thoracic spine Acute Hand fracture Acute Hand laceration Acute Humeral surgical neck fracture Acute Hyponatremia Acute Wrist fracture Acute Epiglottitis Acute Esophagitis Acute GI bleed Acute Painful swallowing Acute
--- NOTE | 2018-09-08 12:40 | TRAUMAPN ---
Trauma Progress Note Assessment/Plan: slept ok. having difficulty moving secondary to braces. AVSS. comfortable. exam unchanged. neck collar fitting nicely. Chest brace in place. LUE sling in place. Right 3rd digit wound clean - approp superficial skin slough. heart reg. lungs clear. abd nontender. pelvis nontender. normal BLE. sensation intact BUE/BLE. 4/5 strength BLE. s/p fall C1/2 fracture without neuro deficit - continue [place] [facility] x 3months (at least). T spine fx - nonop - cont brace. LUE humeral neck and distal radial fx - reduced and splinted - cont supportive care. Right 3rd digit phalynx fx with skin lac - repaired - wound healing well. sutures out in 1 week. Hyponatremia (chronic) 128 today - apprec hospitalist assist with ongoing medical needs. PT/OT - to SNF upon discharge - ok from trauma standpoint. Objective: Vital Signs Temp Pulse Resp BP Pulse Ox 36.3 C 70 16 165/73 H 94 09/08/18 11:43 09/08/18 11:43 09/08/18 08:00 09/08/18 11:43 09/08/18 08:00 Laboratory Results 09/03/18 10:35 09/08/18 05:09 09/07/18 09/08/18 09/09/18 05:59 05:59 05:59 Intake Total 750 240 100 Output Total 650 625 Balance 100 -385 100 PT 12.9 SEC (12.0-15.0) 09/02/18 18:56 INR 0.95 (0.83-1.16) 09/02/18 18:56 - C-Spine Clearance Cervical Spine Cleared: No
--- NOTE | 2018-09-08 14:48 | HOSPPROG ---
Hospitalist Progress Note Assessment/Plan: 82 yo F w mechanical fall, multiple fractures, hyponatremia. 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 -will recheck urine studies -on salt tabs # c spine fracture, posterior ring -placed hard collar #T6 burst fracture (non displaced T8 fracture and old T2 endplate fx) -brace #right 3rd digit phalanx fx w skin lac -sutures out in one week #severe pain due to the above -patient is tearful, pulling off her brace -will try a Lidoderm patch and scheduled Tylenol -prn oxy ir (low dose if needed) and low dose tramadol #encephalopathy (toxic and metabolic) -difficult to know her baseline, she is from [place] and has a strong accent #anemia -follow # dvt proph: -neurosurgery & trauma ok w DVT prophylaxis -Lovenox initiated Subjective: Smitha is wanting her brace off, says she is hurting in the neck and asking for a neck rub. Objective: Vital Signs Temp Pulse Resp BP Pulse Ox 36.3 C 70 16 165/73 H 74 L 09/08/18 11:43 09/08/18 11:43 09/08/18 08:00 09/08/18 11:43 09/08/18 10:17 Laboratory Results 09/03/18 10:35 09/08/18 05:09 09/07/18 09/08/18 09/09/18 05:59 05:59 05:59 Intake Total 750 240 100 Output Total 650 625 Balance 100 -385 100 PT 12.9 SEC (12.0-15.0) 09/02/18 18:56 INR 0.95 (0.83-1.16) 09/02/18 18:56 - Physical Exam Constitutional: chronically ill appearing, other (thin) Eyes: PERRL Ears, Nose, Mouth, Throat: hearing normal, other (neck brace) Cardiovascular: regular rate and rhythym Respiratory: no respiratory distress Skin: warm Musculoskeletal: generalized weakness Neurologic: other (alert but difficult to know her orientation) ICD10 Worksheet Patient Problems: Problems Problem Status Onset Cervical spine fracture Acute Fall Acute Fracture of thoracic spine Acute Hand fracture Acute Hand laceration Acute Humeral surgical neck fracture Acute Hyponatremia Acute Wrist fracture Acute Epiglottitis Acute Esophagitis Acute GI bleed Acute Painful swallowing Acute
[2018-09-08] MEDS: ENOXAPARIN 30 MG/0.3 ML SYR SC SCH (16:05)
[2018-09-08] MEDS: ACETAMINOPHEN 500 MG TAB PO SCH ×2 (16:05→21:26)
[2018-09-08] MEDS: traMADol 50 MG TAB PO PRN ×2 (16:06→23:06)
[2018-09-08] MEDS: LIDOCAINE 4%/MENTHOL 1% PATCH TD SCH (18:10)
[2018-09-08] MEDS ORDERED: PATCH REMOVAL 1 EA PATCH TD SCH (21:00)
[2018-09-08] MEDS: OXYBUTYNIN CHLORIDE 5 MG TAB PO SCH (21:23)
[2018-09-09] MEDS: traMADol 50 MG TAB PO PRN ×3 (05:33→18:42)
[2018-09-09] MEDS: ACETAMINOPHEN 500 MG TAB PO SCH ×3 (05:33→22:34)
[2018-09-09 06:10] LABS: PLATELET COUNT 280 10^3/uL (150-400)
[2018-09-09] MEDS: ATENOLOL 25 MG TAB PO SCH (08:33)
[2018-09-09] MEDS: CYANO/VITAMIN B12 1000 MCG TAB PO SCH (08:34)
[2018-09-09] MEDS: ENOXAPARIN 30 MG/0.3 ML SYR SC SCH (08:34)
[2018-09-09] MEDS: LISINOPRIL 20 MG TAB PO SCH (08:34)
[2018-09-09] MEDS: PANTOPRAZOLE SODIUM 40 MG TAB PO SCH (08:34)
[2018-09-09] MEDS: SODIUM CHLORIDE 1,000 MG TAB PO SCH ×2 (08:34→16:42)
--- NOTE | 2018-09-09 08:37 | HOSPPROG ---
Hospitalist Progress Note Assessment/Plan: 82 yo F w mechanical fall, multiple fractures, hyponatremia. 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, will need higher solute intake -on fluid restriction + salt tabs -has a hx of this # c spine fracture, posterior ring -placed hard collar #T6 burst fracture (non displaced T8 fracture and old T2 endplate fx) -brace #right 3rd digit phalanx fx w skin lac -sutures out in one week #severe pain due to the above -patient is tearful, pulling off her brace -will try a Lidoderm patch and scheduled Tylenol -prn oxy ir (low dose if needed), increased tramadol dosing #encephalopathy (toxic and metabolic) -difficult to know her baseline, she is from [place] and has a strong accent #anemia -follow # dvt proph: -Lovenox initiated #plan: can go to [facility] once pain is a better managed. increased tramadol dosing today Subjective: Smitha says her back is hurting. Objective: Vital Signs Temp Pulse Resp BP Pulse Ox 36.7 C 69 15 175/74 H 90 L 09/09/18 08:00 09/09/18 08:33 09/09/18 08:00 09/09/18 08:34 09/09/18 08:00 Laboratory Results 09/09/18 05:45 09/09/18 05:45 09/08/18 09/09/18 09/10/18 05:59 05:59 05:59 Intake Total 240 1100 Output Total 625 300 100 Balance -385 800 -100 PT 12.9 SEC (12.0-15.0) 09/02/18 18:56 INR 0.95 (0.83-1.16) 09/02/18 18:56 - Physical Exam Constitutional: chronically ill appearing, uncomfortable, No not in pain Eyes: PERRL Ears, Nose, Mouth, Throat: hearing normal Cardiovascular: regular rate and rhythym Respiratory: no respiratory distress Skin: warm Neurologic: other (alert) Psychiatric: interacting appropriately, anxious ICD10 Worksheet Patient Problems: Problems Problem Status Onset Cervical spine fracture Acute Fall Acute Fracture of thoracic spine Acute Hand fracture Acute Hand laceration Acute Humeral surgical neck fracture Acute Hyponatremia Acute Wrist fracture Acute Epiglottitis Acute Esophagitis Acute GI bleed Acute Painful swallowing Acute
--- NOTE | 2018-09-09 08:59 | NEUSURGPN ---
Assessment/Plan: 82 yo female s/p fall with posterior ring C1 fractures, type III fracture through the base of the dens, 3 mm posterior displacement of the dens fracture and now findings of T6 burst fracture. She is in a JEWEL BEARING BROACHER brace. pt continues with delirium at this time. degree of pain not fully assessed Patient is not a good candidate for kyphoplasty. With the posterior cortex disruption, she is at a higher risk for cement leaking into the canal. -CT thoracic shows T6 burst fracture, acute- non displaced T8 fracture, old T2 endplate fracture -Patient was unable to complete MRI, what was completed showed mild to moderate central canal narrowing at T6 with posterior cortical bulge. Posterior cortex abuts but does not compress the cord. Subtle acute fracture at the superior endplate of T1, inferior endplate T2, superior endplate of T4 and inferior body of T8. No retropulsion seen. -We will continue to follow in JEWEL BEARING BROACHER brace. Continue with pain management for now , may consider surgery if pain does not get controlled. -continue pain control, agree with changes to tramadol if helps with agitation. -call warp hanger to refit and ensure brace is functioning properly as she has taken it multiple times, could consider custom, but I don't think it will be of much benefit and pt will find more cumbersome. - PT/OT-as able -will follow progress with mobilization - please contact us with any change sin neuro exam/status Subjective: complains of thirst. Objective: Alert speech clear MAEx4, 5/5 BLE SILT negative clonus in collar. left sided sling - Physician Discussed Patient with : [facility] Physical Exam - Vitals, I&O, Labs I and O 09/08/18 09/09/18 09/10/18 05:59 05:59 05:59 Intake Total 240 1100 Output Total 625 300 100 Balance -385 800 -100 Weight 51 kg Intake: Oral (ml) 240 1100 Output: Urine (ml) 625 300 100 Bedside Commode 625 300 100 Other: Intake Quantity Yes Sufficient Number of Voids Bedside Commode 1 1 Vital Signs Temp Pulse Resp BP Pulse Ox 36.7 C 69 15 175/74 H 90 L 09/09/18 08:00 09/09/18 08:33 09/09/18 08:00 09/09/18 08:34 09/09/18 08:00 Laboratory Results 09/09/18 05:45 09/09/18 05:45 ICD10 Worksheet Patient Problems: Problems Problem Status Onset Cervical spine fracture Acute Fall Acute Fracture of thoracic spine Acute Hand fracture Acute Hand laceration Acute Humeral surgical neck fracture Acute Hyponatremia Acute Wrist fracture Acute Epiglottitis Acute Esophagitis Acute GI bleed Acute Painful swallowing Acute
--- NOTE | 2018-09-09 11:18 | SOAPPROG ---
SOAP Progress Note Assessment/Plan: Assessment/Plan: 83 yo F s/p mechanical fall closed left distal radius fracture s/p closed reduction performed by Dr. Dow on 09/02/2018 -Pt without splint at exam today. Repeat films taken, increase in displacement , plan for ORIF -Planning for OR on 09/10/2018, scheduled for 13:00 -Pt will be NPO after midnight, meds ok -Cont current pain regimen until then, encourage PO as tolerated, caution for confusion/agitation -Ice prn -Cont SCDs and TEDs for VTE mechanical prophylaxis -Will hold for Lovenox d/t surgical status, likely ok to restart on POD#1 closed left proximal humerus fracture -Cont PT/OT, pt will remain NWB of LUE, maintain sling at all times -Cont to monitor for removal of splint/sling -Pt will be NPO after midnight, meds ok -Cont SCDs and TEDs for VTE mechanical prophylaxis -Will hold for Lovenox d/t surgical status, likely ok to restart on POD#1 -Pt will RTC 3-7 days for repeat radiographs upon d/c R hand III finger P2 fx, laceration -Cont care per Dr. Goldman Multiple C spine and T spine fractures -Cont care per neuro, PSYCH ARNP in place 09/09/18 11:17 Subjective: Pt seen up at bedside. Complains of pain in her back, but denies any LUE pain at this time. She notes that her sling is uncomfortable. She also notes that her pain medication is improving her overall pain today more than yesterday. She denies any new onset n/t, as well as any bilateral lower extremity pain. She has no additional concerns or complaints at this time. Per nursing report, the patient removed her L wrist splint on her own, and was found with no splint in place. Various members of the care team staff have educated the patient on the risks of removing her splint, as did I during my exam yesterday. Per discussion with her family, they also note they have encouraged her to leave her splints and braces in place. She has been moving her left wrist without reports of discomfort. Per report, EVANGELIST hose has also been placed several time and has been removed by the patient. However, she has been much less agitated today Objective: Vital Signs Temp Pulse Resp BP Pulse Ox 36.7 C 69 15 175/74 H 90 L 09/09/18 08:00 09/09/18 08:33 09/09/18 08:00 09/09/18 08:34 09/09/18 08:00 Laboratory Results 09/09/18 05:45 09/09/18 05:45 09/08/18 09/09/18 09/10/18 05:59 05:59 05:59 Intake Total 240 1100 100 Output Total 625 300 100 Balance -385 800 0 PT 12.9 SEC (12.0-15.0) 09/02/18 18:56 INR 0.95 (0.83-1.16) 09/02/18 18:56 Patient seen at bedside. VSS, mild distress, responding appropriately, less agitated. Exam of the left upper arm reveals mild ecchymosis. Pt is slightly tender proximally without crepitus. Upper arm compartments are supple. Left wrist exam reveals NO SPLINT IN PLACE. Visible and palpable deformity noted of the distal radius, which is TTP, however, pt noted moving her wrist in mild ROM without reports of discomfort. No surrounding erythema, calor, discharge or induration. Pt is able to flex/ext fingers without difficulty and make a light composite fist. Pt is intact to light touch sensation distally, as well as in the axillary, median, radial and ulnar nerve distribution. Capillary refill < 2sec in the finger pulps, DNVI BUE. Exam of the BLE reveal NTTP of the posterior calves, no palpable vascular cords, neg Sumit's bilat. SCDs at bedside. No TEDs in place, having been removed by patient. DNVI BLE. ICD10 Worksheet Patient Problems: Problems Problem Status Onset Cervical spine fracture Acute Fall Acute Fracture of thoracic spine Acute Hand fracture Acute Hand laceration Acute Humeral surgical neck fracture Acute Hyponatremia Acute Wrist fracture Acute Epiglottitis Acute Esophagitis Acute GI bleed Acute Painful swallowing Acute
[2018-09-09] MEDS: LIDOCAINE 4%/MENTHOL 1% PATCH TD SCH ×2 (11:41→22:50)
--- NOTE | 2018-09-09 13:39 | TRAUMAPN ---
Trauma Progress Note - Problem/Surgery Performed (1) Fracture of thoracic spine Assessment/Plan: etiology of back pain/neurosurgery recommends non-operative management with LDR RN brace however, patient is non-compliant and keeps taking off her brace. The fracture does not appear unstable and it may be necessary to leave it off for now Qualifiers: Encounter type: initial encounter Thoracic vertebra fracture level: T6 Fracture type: closed Fracture morphology: burst- unstable Qualified Code(s) : S22.052A - Unstable burst fracture of T5-T6 vertebra, initial encounter for closed fracture (2) Cervical spine fracture Assessment/Plan: C1 and C2 fx without neuro deficit /fitted with a [place] J collar, patient is compliant with her collar but has been noted to remove it herself I tried to explain the risk of removing her collar, that she could become paralyzed, but she is not comprehending I do not believe that she is stable for transfer to a SNF and may need to be managed in the SDU Qualifiers: Encounter type: initial encounter Cervical vertebra fracture level: C1 Fracture type: closed Fracture morphology: other fracture Fracture alignment : nondisplaced Qualified Code(s): S12.091A - Other nondisplaced fracture of first cervical vertebra, initial encounter for closed fracture (3) Fall Assessment/Plan: mechanism of injury/high risk for repeat fall with multiple injuries and inability to use her left arm for support Qualifiers: Encounter type: initial encounter Qualified Code(s): W19.XXXA - Unspecified fall, initial encounter (4) Hand fracture Qualifiers: Encounter type: initial encounter Fracture type: closed Laterality: right Qualified Code(s): S62.91XA - Unspecified fracture of right wrist and hand, initial encounter for closed fracture (5) Humeral surgical neck fracture Assessment/Plan: non-operative management with a sling/discussed with Qualifiers: Encounter type: initial encounter Fracture type: closed Fracture morphology: unspecified fracture morphology Fracture alignment: nondisplaced Laterality: left Qualified Code(s): S42.215A - Unspecified nondisplaced fracture of surgical neck of left humerus, initial encounter for closed fracture (6) Hyponatremia Assessment/Plan: 125 today/chronic problem/discussed with hospitalist service, will continue fluid restriction and monitor (7) Wrist fracture Assessment/Plan: distal radius fx s/p closed reduction, patient has been unraveling her posterior splint ROLANDO wrap and has now removed her splint entirely. Repeat imaging shows angular deformity of the distal radius. I discussed with Jass Simmons PA-C and he plans on reducing the fracture and replacing the splint. Dr. Dow and I discussed the possible need for ORIF if she cannot be compliant with immobilization. He will discuss with Dr. Fam who is covering for Dr. Dow this Qualifiers: Encounter type: initial encounter Fracture type: closed Laterality: left Qualified Code(s): S62.102A - Fracture of unspecified carpal bone, left wrist , initial encounter for closed fracture Assessment/Plan: s/p mechanical fall with multiple fractures/altered level of consciousness with agitation make transfer to SNF unsafe at this time. I am not sure what her baseline mental status is and will discuss the possible need for a mental health assessment with the hospitalist service Subjective: sitting up in a chair screaming "help me...my neck is hurting) She has completely removed her left wrist splint and LDR RN brace and I assisted her nurse to replace the brace. She received Tramadol within the hour Objective: Vital Signs Temp Pulse Resp BP Pulse Ox 36.7 C 69 15 175/74 H 90 L 09/09/18 08:00 09/09/18 08:33 09/09/18 08:00 09/09/18 08:34 09/09/18 08:00 Laboratory Results 09/09/18 05:45 09/09/18 05:45 09/08/18 09/09/18 09/10/18 05:59 05:59 05:59 Intake Total 240 1100 100 Output Total 625 300 100 Balance -385 800 0 PT 12.9 SEC (12.0-15.0) 09/02/18 18:56 INR 0.95 (0.83-1.16) 09/02/18 18:56 - C-Spine Clearance Cervical Spine Cleared: No Physical Exam - Physical Exam General Appearance: thin, other (agitated/reports neck pain) EENT: other Neck: other ([place] J collar in place) Respiratory: chest non-tender, lungs clear Cardiac/Chest: regular rate, rhythm Abdomen: non-tender, soft Pelvic Exam: deferred Rectal: deferred Back: Other (scoliosis) Skin: warm/dry Extremities: other (deformity left wrist) Neuro/Psych: cognition abnormalities, other (agitated/disoriented)
[2018-09-09] MEDS ORDERED: ceFAZolin 2 GM/DEXTROSE 100 ML IV ONE (18:26)
[2018-09-09] MEDS: OXYBUTYNIN CHLORIDE 5 MG TAB PO SCH (22:35)
[2018-09-10] MEDS: traMADol 50 MG TAB PO PRN ×3 (01:07→21:01)
[2018-09-10] MEDS: ACETAMINOPHEN 500 MG TAB PO SCH ×4 (06:39→21:00)
[2018-09-10] MEDS: SODIUM CHLORIDE 1,000 MG TAB PO SCH ×2 (08:16→17:32)
[2018-09-10] MEDS: LISINOPRIL 20 MG TAB PO SCH (08:16)
[2018-09-10] MEDS: CYANO/VITAMIN B12 1000 MCG TAB PO SCH (08:17)
[2018-09-10] MEDS: PANTOPRAZOLE SODIUM 40 MG TAB PO SCH (08:17)
[2018-09-10] MEDS: ONDANSETRON DISINTEGRATING 4 MG TAB PO PRN (08:17)
[2018-09-10] MEDS: ATENOLOL 25 MG TAB PO SCH (08:17)
[2018-09-10] MEDS: AMMONIUM LACTATE 12% 8 OZ LOTION TP SCH (08:27)
[2018-09-10] MEDS: PATCH REMOVAL 1 EA PATCH TD SCH (09:20)
--- NOTE | 2018-09-10 10:00 | NEUSURGPN ---
Assessment/Plan: 82 yo female s/p fall with posterior ring C1 fractures, type III fracture through the base of the dens, 3 mm posterior displacement of the dens fracture and findings of T6 burst fracture, but not compressive on the cord. She is not compliant with braces. neuro intact -CT thoracic shows T6 burst fracture, acute- non displaced T8 fracture, old T2 endplate fracture -Patient was unable to complete MRI, what was completed showed mild to moderate central canal narrowing at T6 with posterior cortical bulge. Posterior cortex abuts but does not compress the cord. Subtle acute fracture at the superior endplate of T1, inferior endplate T2, superior endplate of T4 and inferior body of T8. No retropulsion seen. -CCOllar at all times, AIRCRAFT MECH[employer]IC ARMAMENT brace when upright an OOB, recommend pt in brace when to OR with ortho -continue pain control, agree with changes to tramadol if helps with agitation. -Patient is not a good candidate for kyphoplasty. With the posterior cortex disruption, she is at a higher risk for cement leaking into the canal. -attempt to avoid internal fixation at this time. -call cook helper meat to refit and ensure brace is functioning properly as she has taken it multiple times, could consider custom, but I don't think it will be of much benefit and pt will find more cumbersome. - PT/OT-as able -will follow progress with mobilization - please contact us with any change sin neuro exam/status Subjective: continues to complain of thirst, also with some right sided mid back pain. Objective: Alert upright in chair, collar poorly adjusted and brace off. speech clear MAEx4, 5/5 BLE SILT negative clonus in collar. left sided sling - Physician Discussed Patient with : [facility] Physical Exam - Vitals, I&O, Labs I and O 09/09/18 09/10/18 09/11/18 05:59 05:59 05:59 Intake Total 1100 1200 Output Total 300 250 Balance 800 950 Intake: Oral (ml) 1100 1200 Output: Urine (ml) 300 250 Bedside Commode 300 250 Other: Intake Quantity No Sufficient Number of Voids Bedside Commode 1 1 Vital Signs Temp Pulse Resp BP Pulse Ox 36.8 C 78 18 182/91 H 86 L 09/09/18 23:33 09/10/18 07:53 09/10/18 07:53 09/10/18 07:53 09/10/18 07:53 Laboratory Results 09/09/18 05:45 09/09/18 05:45 ICD10 Worksheet Patient Problems: Problems Problem Status Onset Cervical spine fracture Acute Fall Acute Fracture of thoracic spine Acute Hand fracture Acute Hand laceration Acute Humeral surgical neck fracture Acute Hyponatremia Acute Wrist fracture Acute Epiglottitis Acute Esophagitis Acute GI bleed Acute Painful swallowing Acute
--- NOTE | 2018-09-10 10:42 | TRAUMAPN ---
Trauma Progress Note Assessment/Plan: - Problem/Surgery Performed (1) Fracture of thoracic spine Assessment/Plan: etiology of back pain/neurosurgery recommends non-operative management with INVESTMENT BROKER brace however, patient is non-compliant and keeps taking off her brace. NSG recommends brace when upright and out of bed (2) Cervical spine fracture Assessment/Plan: C1 and C2 fx without neuro deficit /fitted with a [place] J collar, patient is compliant with her collar but has been noted to remove it herself [place] J at all times (3) Hand fracture Qualifiers: Encounter type: initial encounter Fracture type: closed Laterality: right Qualified Code(s): S62.91XA - Unspecified fracture of right wrist and hand, initial encounter for closed fracture (4) Humeral surgical neck fracture Assessment/Plan: non-operative management with a sling/discussed with Qualifiers: Encounter type: initial encounter Fracture type: closed Fracture morphology: unspecified fracture morphology Fracture alignment: nondisplaced Laterality: left Qualified Code(s): S42.215A - Unspecified nondisplaced fracture of surgical neck of left humerus, initial encounter for closed fracture (5) Hyponatremia Assessment/Plan: 125 today/chronic problem/discussed with hospitalist service, will continue fluid restriction and monitor. Salt tabs (6) Wrist fracture Assessment/Plan: Going to OR today at 1500. NPO Hope can go to SNF in next few days Subjective: S: Sleeping soundly in chair. When I woke her, she complained about her neck pain. I explained that she had a broken bone Objective: Vital Signs Temp Pulse Resp BP Pulse Ox 36.8 C 78 18 182/91 H 86 L 09/09/18 23:33 09/10/18 07:53 09/10/18 07:53 09/10/18 07:53 09/10/18 07:53 Laboratory Results 09/09/18 05:45 09/09/18 05:45 09/09/18 09/10/18 09/11/18 05:59 05:59 05:59 Intake Total 1100 1200 Output Total 300 250 Balance 800 950 PT 12.9 SEC (12.0-15.0) 09/02/18 18:56 INR 0.95 (0.83-1.16) 09/02/18 18:56 - C-Spine Clearance Cervical Spine Cleared: No Physical Exam - Physical Exam General Appearance: WD/WN, alert, no apparent distress EENT: PERRL/EOMI, No scleral icterus (R), No scleral icterus (L), No hearing deficit Neck: other ([place] J in place) Respiratory: lungs clear, normal breath sounds, other (decreased at bases) Abdomen: normal bowel sounds, non-tender, soft Skin: warm/dry Extremities: other (splint in place) Neuro/Psych: alert
--- NOTE | 2018-09-10 11:58 | HOSPPROG ---
Hospitalist Progress Note Assessment/Plan: Hospitalist Progress Note Assessment/Plan: 82 yo F w mechanical fall, multiple fractures, hyponatremia. # hyponatremia -SIADH, chronic. D/W Dr García. -has a low urine NA, will need higher solute intake -on fluid restriction + salt tabs -has a hx of this # c spine fracture, posterior ring -placed hard collar #T6 burst fracture (non displaced T8 fracture and old T2 endplate fx) -brace -etiology of back pain -neurosurgery recommends non-operative management with PULP PRESS TENDER brace -patient is non-compliant and keeps taking off her brace. -NSG recommends brace when upright and out of bed #Humeral surgical neck fracture -non-operative management with a sling #Wrist fracture -Going to OR today at 1500. NPO #right 3rd digit phalanx fx w skin lac -sutures out in one week #severe pain due to the above -will try a Lidoderm patch and scheduled Tylenol -prn oxy ir (low dose if needed), increased tramadol dosing #encephalopathy (toxic and metabolic) -difficult to know her baseline, she is from [place] and has a strong accent #anemia -follow # dvt proph: -Lovenox initiated #plan: can go to [facility] when ready pain seems better controlled today Subjective: Resting. No specific issues. Pain stable. Objective: Vital Signs Temp Pulse Resp BP Pulse Ox 36.8 C 78 18 182/91 H 86 L 09/09/18 23:33 09/10/18 07:53 09/10/18 07:53 09/10/18 07:53 09/10/18 07:53 Laboratory Results 09/09/18 05:45 09/09/18 05:45 09/09/18 09/10/18 09/11/18 05:59 05:59 05:59 Intake Total 1100 1200 Output Total 300 250 200 Balance 800 950 -200 PT 12.9 SEC (12.0-15.0) 09/02/18 18:56 INR 0.95 (0.83-1.16) 09/02/18 18:56 - Physical Exam Constitutional: chronically ill appearing, uncomfortable Eyes: PERRL, anicteric sclera Ears, Nose, Mouth, Throat: moist mucous membranes, hearing normal Cardiovascular: No JVD, No edema Respiratory: no respiratory distress, reduced air movement Gastrointestinal: No tenderness, No ascites Skin: warm, normal color Musculoskeletal: pain with ROM, generalized weakness Psychiatric: not anxious, poor insight, poor judgement, poor memory ICD10 Worksheet Patient Problems: Problems Problem Status Onset Cervical spine fracture Acute Fall Acute Fracture of thoracic spine Acute Hand fracture Acute Hand laceration Acute Humeral surgical neck fracture Acute Hyponatremia Acute Wrist fracture Acute Epiglottitis Acute Esophagitis Acute GI bleed Acute Painful swallowing Acute
[2018-09-10] MEDS ORDERED: POLYMYXIN B SULFATE 500,000 UNIT/10 ML SYR IRR ONE (13:31)
[2018-09-10] MEDS ORDERED: BACITRACIN 50,000 UNITS/10 ML SYR IRR ONE (13:31)
[2018-09-10] MEDS ORDERED: BUPIVACAINE/EPI 0.25% 30 ML SDV ONE (13:31)
--- NOTE | 2018-09-10 13:37 | SOAPPROG ---
SOAP Progress Note Assessment/Plan: Assessment: Re-displaced Left DRF after patient self removed sugar tong splint. Mental status and behavior makes it unrealistic to repeat closed reduction and splinting. Plan: To OR for ORIF. Discussed care with Son and DIL. Son cosigned consent for surgery. 09/10/18 13:33 Objective: Vital Signs Temp Pulse Resp BP Pulse Ox 36.8 C 78 18 182/91 H 86 L 09/09/18 23:33 09/10/18 07:53 09/10/18 07:53 09/10/18 07:53 09/10/18 07:53 Laboratory Results 09/09/18 05:45 09/09/18 05:45 09/09/18 09/10/18 09/11/18 05:59 05:59 05:59 Intake Total 1100 1200 Output Total 300 250 200 Balance 800 950 -200 PT 12.9 SEC (12.0-15.0) 09/02/18 18:56 INR 0.95 (0.83-1.16) 09/02/18 18:56 Left distal radius fracture has re-displaced after patient removed her splint. Clinical deformity matches new xrays - re-displaced. Remains NVI in Left hand /fingers ICD10 Worksheet Patient Problems: Problems Problem Status Onset Cervical spine fracture Acute Fall Acute Fracture of thoracic spine Acute Hand fracture Acute Hand laceration Acute Humeral surgical neck fracture Acute Hyponatremia Acute Wrist fracture Acute Epiglottitis Acute Esophagitis Acute GI bleed Acute Painful swallowing Acute
--- NOTE | 2018-09-10 14:13 | PDANEPAE ---
ANE History of Present Illness ORIF L wrist ANE Past Medical History - Cardiovascular History Hx Hypertension: Yes Hx Arrhythmias: No Hx Chest Pain: No Hx Coronary Artery / Peripheral Vascular Disease: No Hx CHF / Valvular Disease: No Hx Palpitations: No - Pulmonary History Hx COPD: No Hx Asthma/Reactive Airway Disease: No Hx Recent Upper Respiratory Infection: No Hx Oxygen in Use at Home: No Hx Sleep Apnea: No Sleep Apnea Screening Result - Last Documented: Negative - Endocrine History Hx Diabetes: No Hypothyroid: No Hyperthyroid: No Obesity: no Endocrine History Comment: hyponatremia - Neurological & Psychiatric Hx Hx Neurological and Psychiatric Disorders: Yes Neurological / Psychiatric History Comment: confusion with hyponatremia, as per son - GI History GERD: mild Hx Gastrointestinal Disorders: Yes Gastrointestinal History Comment: hx of duodenal ulcer - Other Health History Other Health History: severe anemia. severe deafness. s/p fall with fracture to C1 and C2, in cervical collar. compression fractures of T1, T2 and T4, in brace - Chronic Pain History Chronic Pain: No - Surgical History Prior Surgeries: Knee surgery ANE Review of Systems Review of Systems: - Exercise capacity METS (RN): 3 METS ANE Patient History - Allergies Allergies/Adverse Reactions: influenza virus vaccine, specific Allergy (Unknown, Verified 09/02/18 18:57) - Home Medications Home Medications: Oxybutynin Chloride 10 mg PO HS 02/21/17 [Last Taken 02/18/17] Atenolol [Tenormin 25 mg (*)] 25 mg PO DAILY 05/23/18 [Last Taken Unknown] Cyanocobalamin [Vitamin B12 (*)] 1,000 mcg PO DAILY 05/23/18 [Last Taken Unknown ] Lisinopril [Zestril 20 mg (*)] 20 mg PO DAILY 05/23/18 [Last Taken Unknown] Ammonium Lactate [Ammonium Lactate] 1 applic TP AD 09/02/18 [Last Taken Unknown] Ciprofloxacin HCl [Ciprofloxacin] 500 mg PO BID 09/02/18 [Last Taken Unknown] - NPO status NPO Since - Liquids (Date): 09/10/18 NPO Since - Liquids (Time): 00:00 NPO Since - Solids (Date): 09/10/18 NPO Since - Solids (Time): 00:00 - Anes Hx Anes Hx: no prior problems - Smoking Hx Smoking Status: Never smoked - Alcohol Use Alcohol Use: None - Family Anes Hx Family Anes Hx: none ANE Labs/Vital Signs - Labs Result Diagrams: 09/09/18 05:45 09/09/18 05:45 - Vital Signs Blood Pressure: 182/91 Heart Rate: 78 Respiratory Rate: 18 O2 Sat (%): 86 Height: 157.48 cm Weight: 51 kg ANE Physical Exam - Airway Neck exam: C-collar in place Mallampati Score: Unable to assesss Mouth exam: poor dentition (severely decayed front upper teeth) - Pulmonary Pulmonary: clear to auscultation - Cardiovascular Cardiovascular: regular rate and rhythym - ASA Status ASA Status: III ANE Anesthesia Plan Anesthesia Plan: general endotracheal anesthesia (GA proc./risks discussed with the patient's and her son. )
[2018-09-10] MEDS ORDERED: CEFAZOLIN 2 GM/DEXTROSE/100 ML BAG IV ONE (14:21)
[2018-09-10] MEDS ORDERED: RANITIDINE 50 MG/2 ML VIAL ONE (14:31)
[2018-09-10] MEDS ORDERED: PROPOFOL 200 MG/20 ML VIAL ONE (14:31)
[2018-09-10] MEDS ORDERED: DEXAMETHASONE 4 MG/ML VIAL ONE (14:31)
[2018-09-10] MEDS ORDERED: ROCURONIUM 50 MG/5 ML VIAL ONE (14:31)
[2018-09-10] MEDS ORDERED: PHENYLEPHRINE HCL 100 MCG/ML SYR ONE (15:18)
[2018-09-10] MEDS ORDERED: ONDANSETRON 4 MG/2 ML VIAL ONE (15:23)
[2018-09-10] MEDS ORDERED: SUGAMMADEX SODIUM 200 MG/2 ML VIAL IVP ONE (15:29)
[2018-09-10] MEDS ORDERED: NALOXONE HCL 0.4 MG/ML INJ IVP PRN (15:30)
--- NOTE | 2018-09-10 15:56 | POSTOPPROG ---
Post Op Note Date of Operation: 09/10/18 Surgeon: Javier Fam Front Clerk: Jass Simmons PAC Anesthesiologist: Will Lemus Anesthesia: GET(General Endotracheal) Pre-op Diagnosis: Left DRF Post-op Diagnosis: Same Procedure: ORIF L DRF Findings: Synthes Volar distal radius plate Inf/Abcess present in the surg proc area at time of surgery?: No EBL: Minimal
[2018-09-10] MEDS ORDERED: ENALAPRILAT DIHYDRATE 1.25 MG/ML VIAL ONE (15:57)
[2018-09-10] MEDS: ENALAPRILAT DIHYDRATE 1.25 MG/ML VIAL IVP PRN ×2 (16:00→16:15)
--- NOTE | 2018-09-10 16:02 | POSTANESTH ---
Post Anesthetic Evaluation Cardiovascular Status: Similar to Pre-Op Cond Respiratory Status: Similar to Pre-op Cond. Level of Consciousness/Mental Status: Can Participate in Eval Pain Control: Adequate, Prn Tx Ordered Nausea/Vomiting Control: Adequate, Prn Tx Ordered Complications Possibly Related to Anesthesia: None Noted
--- NOTE | 2018-09-10 16:03 | SOAPPROG ---
SOAP Progress Note Assessment/Plan: Assessment: Post op check, Moving all 4 extremities with purpose and has normal light touch sensation in B UE and LE. Humerus xray in OR show no change in left proximal humerus fracture position Plan: Pain control. Encourage splint on L Wrist and Sling for L shoulder use as best possible 09/10/18 13:33 09/10/18 16:01 Objective: Vital Signs Temp Pulse Resp BP Pulse Ox 36.8 C 78 18 182/91 H 86 L 09/10/18 14:14 09/10/18 15:30 09/10/18 15:30 09/10/18 15:30 09/10/18 15:30 Laboratory Results 09/09/18 05:45 09/09/18 05:45 09/09/18 09/10/18 09/11/18 05:59 05:59 05:59 Intake Total 1100 1200 Output Total 300 250 200 Balance 800 950 -200 PT 12.9 SEC (12.0-15.0) 09/02/18 18:56 INR 0.95 (0.83-1.16) 09/02/18 18:56 At conclusion of left DRF ORIF, I imaged left proximal humerus and identified no change in fracture position. ICD10 Worksheet Patient Problems: Problems Problem Status Onset Cervical spine fracture Acute Fall Acute Fracture of thoracic spine Acute Hand fracture Acute Hand laceration Acute Humeral surgical neck fracture Acute Hyponatremia Acute Wrist fracture Acute Epiglottitis Acute Esophagitis Acute GI bleed Acute Painful swallowing Acute
[2018-09-10] MEDS ORDERED: fentaNYL 100 MCG/2 ML INJ ONE (16:18)
[2018-09-10] MEDS ORDERED: HYDROmorphONE/DILAUDID 2 MG/ML INJ ONE (16:19)
[2018-09-10] MEDS: fentaNYL 100 MCG/2 ML INJ IVP PRN ×2 (16:22→16:30)
[2018-09-10] MEDS: HYDROmorphONE/DILAUDID 2 MG/ML INJ IVP PRN ×2 (16:24→16:45)
[2018-09-10] MEDS: ONDANSETRON 4 MG/2 ML VIAL IVP PRN (17:16)
[2018-09-10] MEDS ORDERED: LACTULOSE 20 GM/30 ML UDCUP PO PRN (18:34)
[2018-09-10] MEDS ORDERED: MAGNESIUM HYDROXIDE 30 ML UDCUP PO PRN (18:34)
[2018-09-10] MEDS ORDERED: BISACODYL 10 MG SUPP PR PRN (18:34)
[2018-09-10] MEDS: LIDOCAINE 4%/MENTHOL 1% PATCH TD SCH (20:57)
[2018-09-10] MEDS: OXYBUTYNIN CHLORIDE 5 MG TAB PO SCH (20:58)
[2018-09-10] MEDS: SENNOSIDES/DOCUSATE SODIUM TAB PO SCH (20:59)
[2018-09-10] MEDS: ceFAZolin 2 GM/DEXTROSE 100 ML IV SCH (21:11)
--- NOTE | 2018-09-10 23:55 | GOP ---
DATE OF OPERATION: 09/10/2018 SURGEON: Javier Fam MD PUG MILL OPERATOR HELPER: Charmaine Simmons PA-C PREOPERATIVE DIAGNOSIS: Left displaced distal radius fracture. POSTOPERATIVE DIAGNOSIS: Left displaced distal radius fracture. PROCEDURE PERFORMED: Open reduction, internal fixation, left distal radius fracture. FINDINGS: A Synthes variable angle volar distal radius locking plate was utilized for internal fixat ion. INDICATIONS: The patient is an 83-year-old woman who sustained multiple traumatic injuries. She prev iously underwent a closed reduction and splint application of her left distal radius fracture. She simmons s metabolic based confusion and has removed her splint with subsequent loss of reduction of her left distal radius fracture. She has an ipsilateral proximal humerus fracture and she has refused to wear her sling. She is brought to the operating room for a more definitive fracture management. DESCRIPTION OF PROCEDURE: After routinely checking the patient's identification, consent, and the mendiola ccessful induction of LMA, general endotracheal anesthetic, the patient's left upper extremity was pr epped and draped in usual standard fashion. I placed a single armboard longitudinal to the operative table and then did not abduct her arm for the surgery. I essentially did her surgery with it laying n ext to her left hip. After routine prep and drape of the left upper extremity, I exsanguinated the fo rearm with an Esmarch wrap and pneumatic tourniquet previously placed about the proximal left arm, wa s inflated to 250 mmHg. A surgical time-out was completed. A longitudinal incision over the FCR tendon at the distal forearm was carried sharply through skin. S pread bluntly through subcutaneous layer and the FCR tendon from its fibers sheath. I incis ed the antebrachial fascia deep to the FCR tendon and swept the volar forearm musculature and tendons in an ulnar maria direction. I sharply took down the pronator quadratus from the radial border of the wrist and then transversely at the watershed line. The fracture was readily evident. I performed a s ubperiosteal dissection on the volar distal radius. I reduced the fracture and held this in reduced p osition with K-wire. K-wire was placed percutaneously from the radial side. Satisfied with the reduct ion, I then affixed the plate to the shaft using standard AO locking screw technique. I had to readju st the radial styloid screw to gain better purchase, but other than that, the plate was positioned we ll, as was the screws positioned appropriately. I irrigated the wound thoroughly. I closed the pronator quadratus over the plate with 2-0 Vicryl sutu res. I allowed the contents of the volar distal forearm to resume their normal anatomical positions. I closed the subcutaneous layer with 4-0 Vicryl and the skin with subcuticular 4-0 Monocryl, followed by Dermabond. 30 cc of 0.25% Marcaine, plus epinephrine were infiltrated around the wound for postop erative comfort. A sterile bulky dressing was applied, followed by a volar plaster splint and saba sive wrap. She tolerated the procedure satisfactory. At the conclusion, I used a small FluoroScan uni t to verify that the proximal humerus as unchanged as preoperative condition with a satisfactorily re duced proximal humerus fracture. She was then carefully transferred back to her hospital bed, after a pplication of a sling on the left upper extremity, predominantly to protect her shoulder. She tolerat ed the procedure well. There were no complications. REASON FOR VP ANALYSIS: A instructor adjunct surgical technician was medically necessary and required to complete this case. The geriatric assistant was used to decrease surgical time. He was also used to position the arm in 3-dimensional space. Her surgery had to be done in a delicate position due to her known proximal hum erus fracture. This required assistance from a skilled instructor adjunct surgical technician to ensure that the arm was not abducted or traction was not pulled upon the arm. /[id number]/MODL
[2018-09-11] MEDS: METHOCARBAMOL 750 MG TAB PO PRN (02:00)
[2018-09-11] MEDS: traMADol 50 MG TAB PO PRN ×2 (04:23→18:00)
[2018-09-11] MEDS: POLYETHYLENE GLYCOL 3350 17 GM PKT PO PRN (04:27)
[2018-09-11] MEDS: AMMONIUM LACTATE 12% 8 OZ LOTION TP SCH ×2 (04:41→15:38)
[2018-09-11] MEDS: ACETAMINOPHEN 500 MG TAB PO SCH ×3 (05:05→22:31)
[2018-09-11] MEDS: ceFAZolin 2 GM/DEXTROSE 100 ML IV SCH ×2 (06:30→14:04)
--- NOTE | 2018-09-11 07:57 | SOAPPROG ---
SOAP Progress Note Assessment/Plan: Assessment: Doing fine. No c/o pain in left arm (shouldler nor wrist) Plan: Pain control. Encourage splint on L Wrist and Sling for L shoulder use as best possible. 09/10/18 13:33 09/10/18 16:01 09/11/18 07:53 Subjective: My neck is painful. Objective: Vital Signs Temp Pulse Resp BP Pulse Ox 36.6 C 71 14 176/72 H 97 09/11/18 04:00 09/11/18 04:00 09/11/18 04:00 09/11/18 04:00 09/11/18 04:00 Laboratory Results 09/09/18 05:45 09/09/18 05:45 09/10/18 09/11/18 09/12/18 05:59 05:59 05:59 Intake Total 1200 1100 Output Total 250 1300 Balance 950 -200 PT 12.9 SEC (12.0-15.0) 09/02/18 18:56 INR 0.95 (0.83-1.16) 09/02/18 18:56 CSM I\intact in left hand fingers. Able to fully extend all digits on left hand and make composite fist with tip to palm apposition. Shouldler swelling remains unchanged. ICD10 Worksheet Patient Problems: Problems Problem Status Onset Cervical spine fracture Acute Fall Acute Fracture of thoracic spine Acute Hand fracture Acute Hand laceration Acute Humeral surgical neck fracture Acute Hyponatremia Acute Wrist fracture Acute Epiglottitis Acute Esophagitis Acute GI bleed Acute Painful swallowing Acute
[2018-09-11] MEDS: oxyCODONE IR 5 MG TAB PO PRN ×3 (08:09→22:00)
--- NOTE | 2018-09-11 08:25 | TRAUMAPN ---
Trauma Progress Note Assessment/Plan: 83-year-old patient who presented to the hospital after unwitnessed fall prolonged time down with [facility] transition to home and then hospital by ambulance. The patient was found to have C1-C2 fracture as well as T6 burst fracture which could cause cord compromise. The patient is noncompliant with her brace but it may not be the best fit. Alert oriented. Complains of neck pain severe. Sclerae anicteric. Pupils reactive extraocular motions intact. Poor dentition. Trachea midline Regular rate and rhythm Clear to auscultation Abdomen soft nontender Full muscle strength bilateral lower extremities with good motor and sensory response. ORIF left forearm yesterday splint recommended by Dr. Fam orthopedic surgery Non compliant with cervical/TLSO brace/orthotic. Will get [employer] to revisit for better fit. Will need to discuss with family regarding risk of spinal cord injury if she does not wear this and what their preference would be. Discussed with nursing staff and Neurosurgery. Will continue to follow up. Chronic hyponatremia seen by medicine for this. No current treatment. Continue supportive care Objective: Vital Signs Temp Pulse Resp BP Pulse Ox 36.6 C 72 16 169/94 H 99 09/11/18 08:00 09/11/18 08:00 09/11/18 08:00 09/11/18 08:00 09/11/18 08:00 Laboratory Results 09/09/18 05:45 09/09/18 05:45 09/10/18 09/11/18 09/12/18 05:59 05:59 05:59 Intake Total 1200 1100 Output Total 250 1300 Balance 950 -200 PT 12.9 SEC (12.0-15.0) 09/02/18 18:56 INR 0.95 (0.83-1.16) 09/02/18 18:56 - C-Spine Clearance Cervical Spine Cleared: No
[2018-09-11] MEDS: ATENOLOL 25 MG TAB PO SCH (08:33)
[2018-09-11] MEDS: PANTOPRAZOLE SODIUM 40 MG TAB PO SCH (08:33)
[2018-09-11] MEDS: SENNOSIDES/DOCUSATE SODIUM TAB PO SCH ×2 (08:34→23:51)
[2018-09-11] MEDS: CYANO/VITAMIN B12 1000 MCG TAB PO SCH (08:34)
[2018-09-11] MEDS: LISINOPRIL 20 MG TAB PO SCH (08:34)
[2018-09-11] MEDS: ENOXAPARIN 30 MG/0.3 ML SYR SC SCH (08:35)
[2018-09-11] MEDS: SODIUM CHLORIDE 1,000 MG TAB PO SCH ×2 (08:35→17:57)
--- NOTE | 2018-09-11 08:54 | NEUSURGPN ---
Assessment/Plan: 82 yo female s/p fall with posterior ring C1 fractures, type III fracture through the base of the dens, 3 mm posterior displacement of the dens fracture and findings of T6 burst fracture, but not compressive on the cord. She is not compliant with braces. neuro intact -CT thoracic shows T6 burst fracture, acute- non displaced T8 fracture, old T2 endplate fracture -Patient was unable to complete MRI, what was completed showed mild to moderate central canal narrowing at T6 with posterior cortical bulge. Posterior cortex abuts but does not compress the cord. Subtle acute fracture at the superior endplate of T1, inferior endplate T2, superior endplate of T4 and inferior body of T8. No retropulsion seen. -Rigid C-COllar at all times can use soft collar if patient is truly non compliant but rigid collar would br best. TARIFF PUBLISHING AGENT brace when upright an OOB, There is a risk of worsening of her T6 burst fracture without the brace which could lead to stenosis/cord trauma causing a neurological deficit including paralysis. Patient is not a good candidate for kyphoplasty and is poor surgical candidate fora more invasive surgery like a fusion. -call felling bucking supervisor to refit and ensure brace is functioning properly - PT/OT-as able - please contact us with any change sin neuro exam/status -Discussed with Dr. Schmitz. Subjective: Non compliant with her brace. Denies any new spinal pain. Objective: NAD A&Ox3 MAEx4 5/5 and equal. Splint/sling on left arm - Physician Discussed Patient with Dr.: Schmitz Neurosurgery Physical Exam - Vitals, I&O, Labs I and O 09/10/18 09/11/18 09/12/18 05:59 05:59 05:59 Intake Total 1200 1100 Output Total 250 1300 Balance 950 -200 Weight 51 kg Intake: Oral (ml) 1200 500 IV Intake (ml) 600 Output: Urine (ml) 250 1300 Bedside Commode 250 1300 Other: Intake Quantity No Yes Sufficient Number of Voids Bedside Commode 1 1 Number of Stools Bedside Commode 0 Vital Signs Temp Pulse Resp BP Pulse Ox 36.6 C 72 16 169/94 H 99 09/11/18 08:00 09/11/18 08:00 09/11/18 08:00 09/11/18 08:00 09/11/18 08:00 Laboratory Results 09/09/18 05:45 09/09/18 05:45 ICD10 Worksheet Patient Problems: Problems Problem Status Onset Cervical spine fracture Acute Fall Acute Fracture of thoracic spine Acute Hand fracture Acute Hand laceration Acute Humeral surgical neck fracture Acute Hyponatremia Acute Wrist fracture Acute Epiglottitis Acute Esophagitis Acute GI bleed Acute Painful swallowing Acute
[2018-09-11] MEDS: PATCH REMOVAL 1 EA PATCH TD SCH (10:13)
--- NOTE | 2018-09-11 12:28 | ASMTCMCOM ---
CM Note CM Note Notes: Spoke landen Yung who visited with the patient today. Issa will call me this afternoon with the disposition regarding admit. CM will follow. Date Signed: 09/11/2018 12:28 PM Electronically Signed By:Malia Erickson LCSW
--- NOTE | 2018-09-11 13:53 | HOSPPROG ---
Hospitalist Progress Note Assessment/Plan: Hospitalist Progress Note Assessment/Plan: 82 yo F w mechanical fall, multiple fractures, hyponatremia. # hyponatremia -SIADH, chronic -has a low urine NA, will need higher solute intake -on fluid restriction + salt tabs -has a hx of this # c spine fracture, posterior ring -placed hard collar #T6 burst fracture (non displaced T8 fracture and old T2 endplate fx) -brace -etiology of back pain -neurosurgery recommends non-operative management with ROVING TE[employer]OR[employer] brace -patient is non-compliant and keeps taking off her brace. -NSG recommends brace when upright and out of bed #Humeral surgical neck fracture -non-operative management with a sling #Wrist fracture -Post op #right 3rd digit phalanx fx w skin lac -sutures out in one week #severe pain due to the above -Lidoderm patch and scheduled Tylenol -prn oxy ir (low dose if needed), increased tramadol dosing #encephalopathy (toxic and metabolic) -difficult to know her baseline, she is from [place] and has a strong accent #anemia -follow # dvt proph: -Lovenox #plan: can go to [facility] when ready pain seems better controlled today D/W Vale Welch CM and Dr Rose Subjective: No specific issues. Pleasant. Some neck discomfort. Objective: Vital Signs Temp Pulse Resp BP Pulse Ox 36.8 C 60 18 153/79 H 93 09/11/18 11:26 09/11/18 11:26 09/11/18 11:26 09/11/18 11:26 09/11/18 11:26 Laboratory Results 09/09/18 05:45 09/09/18 05:45 09/10/18 09/11/18 09/12/18 05:59 05:59 05:59 Intake Total 1200 1100 150 Output Total 250 1300 300 Balance 950 -200 -150 PT 12.9 SEC (12.0-15.0) 09/02/18 18:56 INR 0.95 (0.83-1.16) 09/02/18 18:56 - Physical Exam Constitutional: appears nourished, chronically ill appearing, uncomfortable Eyes: PERRL, anicteric sclera, EOMI Ears, Nose, Mouth, Throat: moist mucous membranes, hearing normal, hard of hearing Cardiovascular: regular rate and rhythym, No JVD, No edema Respiratory: no respiratory distress, no rales or rhonchi, reduced air movement Gastrointestinal: normoactive bowel sounds, No tenderness, No ascites Skin: warm, normal color, No mottled Musculoskeletal: no joint effusions, pain with ROM, generalized weakness Psychiatric: not anxious, poor insight, poor judgement, poor memory ICD10 Worksheet Patient Problems: Problems Problem Status Onset Epiglottitis Acute GI bleed Acute Hyponatremia Acute Painful swallowing Acute Esophagitis Acute Fall Acute Humeral surgical neck fracture Acute Cervical spine fracture Acute Wrist fracture Acute Hand laceration Acute Hand fracture Acute Fracture of thoracic spine Acute
--- NOTE | 2018-09-11 15:19 | ASMTCMCOM ---
CM Note CM Note Notes: Spoke with AYLIN Regan for Dr. Knight who wanted us to communicate with [facility] about the need to watch patient and keep her compliant with her orthopedic braces as much as possible. Patient has been taking them off, chewing through her stitches, and removing supports when she is uncomfortable. Jass reports patient 's pain control is much better with Tramadol. The family has been somewhat upset thinking the hospital needs to watch her 04/04. Jass explained we are not set up to provide that kind of care. Spoke with [facility] to let them know they will need to be vigilant with keeping patient in her braces. Issa is discussing the issues with his clinical team and will get back to us. Anticipate patient will be ready to d/c tomorrow after neuro has seen the patient and cleared her. CM will follow. Date Signed: 09/11/2018 03:18 PM Electronically Signed By:Malia Erickson LCSW
[2018-09-11] MEDS: LIDOCAINE 4%/MENTHOL 1% PATCH TD SCH (22:09)
[2018-09-11] MEDS: OXYBUTYNIN CHLORIDE 5 MG TAB PO SCH (23:51)
[2018-09-12] MEDS: traMADol 50 MG TAB PO PRN ×3 (04:34→22:16)
[2018-09-12] MEDS: ACETAMINOPHEN 500 MG TAB PO SCH ×3 (06:26→22:05)
[2018-09-12] MEDS: ENOXAPARIN 30 MG/0.3 ML SYR SC SCH (08:28)
[2018-09-12] MEDS: ATENOLOL 25 MG TAB PO SCH (08:39)
[2018-09-12] MEDS: CYANO/VITAMIN B12 1000 MCG TAB PO SCH (08:39)
[2018-09-12] MEDS: PANTOPRAZOLE SODIUM 40 MG TAB PO SCH (08:39)
[2018-09-12] MEDS: SODIUM CHLORIDE 1,000 MG TAB PO SCH ×2 (08:40→17:31)
[2018-09-12] MEDS: SENNOSIDES/DOCUSATE SODIUM TAB PO SCH ×2 (08:40→23:10)
[2018-09-12] MEDS: LISINOPRIL 20 MG TAB PO SCH (08:40)
[2018-09-12] MEDS: oxyCODONE IR 5 MG TAB PO PRN ×2 (08:57→14:47)
[2018-09-12] MEDS: PATCH REMOVAL 1 EA PATCH TD SCH (09:00)
--- NOTE | 2018-09-12 09:51 | NEUSURGPN ---
Assessment/Plan: 82 yo female s/p fall with posterior ring C1 fractures, type III fracture through the base of the dens, 3 mm posterior displacement of the dens fracture and findings of T6 burst fracture, but not compressive on the cord. She is not compliant with braces. neuro intact -CT thoracic shows T6 burst fracture, acute- non displaced T8 fracture, old T2 endplate fracture -Patient was unable to complete MRI, what was completed showed mild to moderate central canal narrowing at T6 with posterior cortical bulge. Posterior cortex abuts but does not compress the cord. Subtle acute fracture at the superior endplate of T1, inferior endplate T2, superior endplate of T4 and inferior body of T8. No retropulsion seen. -Rigid C-COllar at all times can use soft collar if patient is truly non compliant but rigid collar would br best. BEER BREWER brace when upright an OOB, There is a risk of worsening of her T6 burst fracture without the brace which could lead to stenosis/cord trauma causing a neurological deficit including paralysis. Patient is not a good candidate for kyphoplasty and is poor surgical candidate fora more invasive surgery like a fusion. -live hanger to refit yesterday. - PT/OT-as able - recommend SNF placement for monitoring and compliance. - please contact us with any change sin neuro exam/status -Discussed with Dr. Schmitz. Subjective: Doing OK this am, pleasant, no complaining of significant back pain. in brace Objective: NAD VSS EOMI, PEARLA Speech clear hard of hearing, MAEx4, 5/5= neg clonus SILT in BEER BREWER, upright in chair - Physician Discussed Patient with : Nadir Neurosurgery Physical Exam - Vitals, I&O, Labs I and O 09/11/18 09/12/18 09/13/18 05:59 05:59 05:59 Intake Total 1100 450 Output Total 1300 550 Balance -200 -100 Weight 51 kg Intake: Oral (ml) 500 450 IV Intake (ml) 600 Output: Urine (ml) 1300 550 Bedside Commode 1300 550 Other: Intake Quantity Yes Sufficient Number of Voids Bedside Commode 1 1 Number of Stools Bedside Commode 0 Vital Signs Temp Pulse Resp BP Pulse Ox 36.3 C 66 16 188/70 H 87 L 09/12/18 08:15 09/12/18 08:15 09/12/18 08:15 09/12/18 08:15 09/12/18 08:15 Laboratory Results 09/09/18 05:45 09/09/18 05:45 ICD10 Worksheet Patient Problems: Problems Problem Status Onset Cervical spine fracture Acute Fall Acute Fracture of thoracic spine Acute Hand fracture Acute Hand laceration Acute Humeral surgical neck fracture Acute Hyponatremia Acute Wrist fracture Acute Epiglottitis Acute Esophagitis Acute GI bleed Acute Painful swallowing Acute
--- NOTE | 2018-09-12 11:09 | HOSPPROG ---
Hospitalist Progress Note Assessment/Plan: Hospitalist Progress Note Assessment/Plan: 82 yo F w mechanical fall, multiple fractures, hyponatremia. # hyponatremia -SIADH, chronic -has a low urine NA, will need higher solute intake -on fluid restriction + salt tabs -has a hx of this -stable # c spine fracture, posterior ring -placed hard collar #T6 burst fracture (non displaced T8 fracture and old T2 endplate fx) -brace -etiology of back pain -neurosurgery recommends non-operative management with NETWORK SUPPORT ADMINISTRATOR brace -patient is non-compliant and keeps taking off her brace. -NSG recommends brace when upright and out of bed #Humeral surgical neck fracture -non-operative management with a sling #Wrist fracture -Post op -stable #right 3rd digit phalanx fx w skin lac -sutures out in one week #severe pain due to the above -Lidoderm patch and scheduled Tylenol -prn oxy ir (low dose if needed), increased tramadol dosing #encephalopathy (toxic and metabolic) -difficult to know her baseline, she is from [place] and has a strong accent #anemia -follow # dvt proph: -Lovenox #plan: can go to SNF when ready pain seems better Subjective: Up in bed. Pain better today. Objective: Vital Signs Temp Pulse Resp BP Pulse Ox 36.3 C 66 16 154/60 H 87 L 09/12/18 08:15 09/12/18 08:15 09/12/18 08:15 09/12/18 10:09 09/12/18 08:15 Laboratory Results 09/09/18 05:45 09/09/18 05:45 09/11/18 09/12/18 09/13/18 05:59 05:59 05:59 Intake Total 1100 450 150 Output Total 1300 550 Balance -200 -100 150 PT 12.9 SEC (12.0-15.0) 09/02/18 18:56 INR 0.95 (0.83-1.16) 09/02/18 18:56 - Physical Exam Constitutional: appears nourished, chronically ill appearing Eyes: PERRL, anicteric sclera Ears, Nose, Mouth, Throat: moist mucous membranes, hearing normal Cardiovascular: No JVD, No edema Respiratory: no respiratory distress, reduced air movement Gastrointestinal: No tenderness, No ascites Skin: warm, normal color Musculoskeletal: pain with ROM, generalized weakness Psychiatric: not anxious, poor insight, poor memory ICD10 Worksheet Patient Problems: Problems Problem Status Onset Epiglottitis Acute GI bleed Acute Hyponatremia Acute Painful swallowing Acute Esophagitis Acute Fall Acute Humeral surgical neck fracture Acute Cervical spine fracture Acute Wrist fracture Acute Hand laceration Acute Hand fracture Acute Fracture of thoracic spine Acute
--- NOTE | 2018-09-12 11:12 | ASMTCMCOM ---
CM Note CM Note Notes: Issa with [facility] on site to assess pt, will consult with his team on pt admit. Updates sent and Issa requests nursing notes which were sent in [employer]. CM to follow. Date Signed: 09/12/2018 11:11 AM Electronically Signed By:YANE Moreno
--- NOTE | 2018-09-12 12:10 | SOAPPROG ---
ANDRZEJ Progress Note Assessment/Plan: Assessment: s/p trauma: closed left proximal humerus fracture, ORIF distal radius fracture, right hand digit 3 middle phalanx fracture(being followed by hand ortho). Overall doing well, pain well controlled this morning and she is excited to hopefully be going to [facility] today. Plan: NWB to LUE. Maintain sling and splint to LUE. Splint in good position at this time. New thoracic burst fx being evaluated by neuro: continue plan per their reccs. TLSO in place and C-spine collar in place. WBAT to RLE. DVT Prophylaxis: Continue chemoprophylaxis per hospitalists. Recommend EVANGELIST brewer in conjunction with SCDs. IS. Pain control: per hospitalists. PT/OT: appreciate their reccs. NWB to LUE, can begin AROM/PROM of left hand. Maintain sling and splint at this time. In good position this am. RTC 7-10 days for repeat radiographs or prn additional questions/concerns which arise. Regarding finger fracture: continue to be managed by on-call hand. We are happy to assist in care of this if needed. Contact our office with questions/concerns: [phone] Advised patient and family to watch for worsening pain, change in ROM or strength, abnormal numbness/tingling, change in heat/color of extremities, cramping in her calves or ankles and to seek immediate medical attention if seen. Patient seen/examined in conjunction with Dr. Fam. Subjective: Able to respond appropriately to questions/commands. Laying down in bed with collars, splint and sling in place. Pain well controlled. Eating normally, passing flatus. Denies change in heat/color of extremity, cough, congestion, chest pain or shortness of breath, worsening pain over time, abnormal numbness/ tingling, worsening change in distal ROM or strength, cramping in her calves or ankles. Is in splint during my visit today and it is in good position. Objective: Vital Signs Temp Pulse Resp BP Pulse Ox 36.3 C 66 16 154/60 H 87 L 09/12/18 08:15 09/12/18 08:15 09/12/18 08:15 09/12/18 10:09 09/12/18 08:15 Laboratory Results 09/09/18 05:45 09/09/18 05:45 09/11/18 09/12/18 09/13/18 05:59 05:59 05:59 Intake Total 1100 450 150 Output Total 1300 550 Balance -200 -100 150 PT 12.9 SEC (12.0-15.0) 09/02/18 18:56 INR 0.95 (0.83-1.16) 09/02/18 18:56 AO, NAD, C-spine collar and TLSO in place, non-labored breathing, no diaphoresis. Afebrile. Abdomen soft, non-tender. MS: Bilateral upper extremities: left shoulder with 1+ non-pitting edema, mild ecchymosis, all compartments soft. Left wrist in splint. Able to wiggle fingers without difficulty and attempt to make a full fist b/l. Right hand digit 3 bandaged, able to attempt active flexion/extensio. No erythema, edema, ecchymosis or calor otherwise noted. Limited AROM of left shoulder secondary to severe pain to patient but is able to attempt AROM in FE, abduction. Is compliant in sling/splint. DNVI with no focal deficits noted. Negative passive stretch b/l. Brisk cap refill b/l. Calves soft/supple and NTTP b/l with negative bilateral Homans b/l with EVANGELIST hose not present, yet SCDs on and pumping b/l. DNVI b/l in BLUE/BLLE with no focal deficits. Brisk cap refill b/l with pedal pulses intact b/l; no deficits ICD10 Worksheet Patient Problems: Problems Problem Status Onset Cervical spine fracture Acute Fall Acute Fracture of thoracic spine Acute Hand fracture Acute Hand laceration Acute Humeral surgical neck fracture Acute Hyponatremia Acute Wrist fracture Acute Epiglottitis Acute Esophagitis Acute GI bleed Acute Painful swallowing Acute
--- NOTE | 2018-09-12 18:56 | TRAUMAPN ---
Trauma Progress Note Assessment/Plan: - Problem/Surgery Performed (1) Fracture of thoracic spine Assessment/Plan: etiology of back pain/neurosurgery recommends non-operative management with CAR JOCKEY brace Patient kept brace on today NSG recommends brace when upright and out of bed (2) Cervical spine fracture Assessment/Plan: C1 and C2 fx without neuro deficit /fitted with a Snyder J collar, patient is compliant with her collar but has been noted to remove it herself Snyder J at all times (3) Hand fracture Qualifiers: Encounter type: initial encounter Fracture type: closed Laterality: right Qualified Code(s): S62.91XA - Unspecified fracture of right wrist and hand, initial encounter for closed fracture (4) Humeral surgical neck fracture (5) Hyponatremia (6) Wrist fracture S/P Fix [place] [facility] to re-evaluate tomorrow - may be able to discharge tomorrow Subjective: S: Still complains of pain but sleepy at the same time Objective: Vital Signs Temp Pulse Resp BP Pulse Ox 36.7 C 60 16 168/82 H 94 09/12/18 16:00 09/12/18 16:00 09/12/18 16:00 09/12/18 16:00 09/12/18 16:00 Laboratory Results 09/09/18 05:45 09/09/18 05:45 09/11/18 09/12/18 09/13/18 05:59 05:59 05:59 Intake Total 1100 450 300 Output Total 1300 550 600 Balance -200 -100 -300 PT 12.9 SEC (12.0-15.0) 09/02/18 18:56 INR 0.95 (0.83-1.16) 09/02/18 18:56 - C-Spine Clearance Cervical Spine Cleared: No Physical Exam - Physical Exam General Appearance: WD/WN, alert, no apparent distress EENT: PERRL/EOMI, normal ENT inspection, No scleral icterus (R), No scleral icterus (L) Neck: other (brace) Respiratory: chest non-tender, lungs clear Cardiac/Chest: regular rate, rhythm Extremities: other (splint and sling, hand warm) Neuro/Psych: no motor/sensory deficits
[2018-09-12] MEDS: LIDOCAINE 4%/MENTHOL 1% PATCH TD SCH (22:04)
[2018-09-12] MEDS: OXYBUTYNIN CHLORIDE 5 MG TAB PO SCH (22:07)
[2018-09-13] MEDS: traMADol 50 MG TAB PO PRN ×3 (03:56→21:23)
[2018-09-13] MEDS: METHOCARBAMOL 750 MG TAB PO PRN ×3 (04:02→19:53)
--- NOTE | 2018-09-13 08:31 | PDIAF ---
- Diagnosis Diagnosis: s/p fall with multiple fractures Code Status: Full Code - Medication Management Skilled Nursing Antibiotic Stop Date: 09/13/18 Discharge Medications: electronically signed and located in the Home Medication List. - Orders Services needed: Registered Nurse, Physical Therapy, Occupational Therapy Diet Recommendation: no restrictions on diet Diet Texture: Regular Texture Diet Weigh Patient: weekly Brown: Not applicable Wound Care Instructions: keep LUE dry/change dressing right hand daily-apply silvasorb and cover with occlusive dressing/miki tape middle/index fingers for immobilization Activity/Weight Bearing Restrictions: non-weight bearing LUE Equipment: Cervical collar/TUBE TESTER brace Additional Instructions: Regarding Left Upper Extremity Fractures (Dr. Fam - [facility]): 1. The patient is to continue no weight bearing of her left arm and wrist. She is to avoid pushing, pulling, lifting, twisting and carrying activities using her left arm. She may move her fingers for light ROM activity. 2. The patient is to wear her postoperative splint on her left wrist at all times, and to cover this for showering purposes. She is to also continue wearing her sling and avoid any active motion of the left shoulder. 3. The patient is to use ice as needed for pain control, as well as an;y pain medication prescribed at her discharge as instructed. 4. The patient is to watch for signs of infection at her surgical site, including but not limited to: significant increases in pain or swelling, redness which extends beyond her splint or significant increases in warmth or drainage, as well as constitutional symptoms such as fevers, chills, nausea or vomiting. She is to notify the office immediately if any of these occur. 5. The patient is to Follow up in clinic with Dr. Fam in 10-12 days after her surgery on her left wrist, or sooner as needed for additional questions/ concerns which may arise. Please call our office at [phone] to schedule. Neurosurgery Discharge Instructions for Cervical Spine 1. Wear cervical hard collar at all times. Cervical Thoracic Orthotic to be worn around the clock. This brace was fit by [facility] 2. Avoid lifting more than 10 pounds. No driving 3. Follow up with Dr. Schmitz in 2-4 weeks with new C-spine x-rays. RIGHT middle finger laceration/fracture middle phalanx and distal tuft Sutures have been removed, treated topically w silvasorb daily dressing changes. This hand injury is being treated by Dr Goldman ([facility]) or Dr Meade - Labs/Radiology BMP Date: 09/14/18 - Follow Up Care Current Providers and Referrals: OFE ESQUIVEL [Medical Doctor] - Yunior Schmitz MD [Medical Doctor] - (FU in 2-4 weeks) Patient,NotPresent [Primary Care Provider] - As per Instructions Javier Fam MD [Medical Doctor] - (Patient is to follow up 10-12 days after her surgery on her left wrist for repeat radiographs of the wrist and humerus. Please call the office as soon as possible to schedule this appointment) Lisa Goldman MD [Medical Doctor] -
[2018-09-13] MEDS: ACETAMINOPHEN 500 MG TAB PO SCH ×3 (09:07→22:03)
[2018-09-13] MEDS: LISINOPRIL 20 MG TAB PO SCH (09:09)
[2018-09-13] MEDS: SENNOSIDES/DOCUSATE SODIUM TAB PO SCH ×2 (09:10→19:53)
[2018-09-13] MEDS: ATENOLOL 25 MG TAB PO SCH (09:10)
[2018-09-13] MEDS: PANTOPRAZOLE SODIUM 40 MG TAB PO SCH (09:10)
[2018-09-13] MEDS: oxyCODONE IR 5 MG TAB PO PRN (09:11)
[2018-09-13] MEDS: CYANO/VITAMIN B12 1000 MCG TAB PO SCH (09:11)
[2018-09-13] MEDS: ENOXAPARIN 40 MG/0.4 ML SYR SC SCH (09:35)
[2018-09-13] MEDS: SODIUM CHLORIDE 1,000 MG TAB PO SCH ×2 (09:35→17:30)
--- NOTE | 2018-09-13 09:53 | SOAPPROG ---
SOAP Progress Note Assessment/Plan: Assessment/Plan: 82 yo female s/p fall with posterior ring C1 fractures, type III fracture through the base of the dens, 3 mm posterior displacement of the dens fracture and findings of T6 burst fracture, but not compressive on the cord. Neuro intact. -CT thoracic shows T6 burst fracture, acute- non displaced T8 fracture, old T2 endplate fracture -Patient was unable to complete MRI, what was completed showed mild to moderate central canal narrowing at T6 with posterior cortical bulge. Posterior cortex abuts but does not compress the cord. Subtle acute fracture at the superior endplate of T1, inferior endplate T2, superior endplate of T4 and inferior body of T8. No retropulsion seen. -Rigid C-COllar at all times can use soft collar if patient is truly non compliant but rigid collar would be best. WAGON DRILLER brace when upright an OOB, There is a risk of worsening of her T6 burst fracture without the brace which could lead to stenosis/cord trauma causing a neurological deficit including paralysis. Patient is not a good candidate for kyphoplasty and is poor surgical candidate for a more invasive surgery like a fusion. - PT/OT-as able - recommend SNF placement for monitoring and compliance. - please contact us with any changes in neuro exam/status - follow up with Dr. Schmitz 2 weeks after discharge. 09/13/18 09:50 09/13/18 09:53 Subjective: asleep, wakes easily and complains of thirst and back pain. Denies numbness, tingling or weakness Left forearm in splint Objective: Vital Signs Temp Pulse Resp BP Pulse Ox 36.4 C 64 16 163/81 H 92 09/13/18 08:00 09/13/18 09:10 09/13/18 08:00 09/13/18 09:10 09/13/18 08:00 Laboratory Results 09/09/18 05:45 09/09/18 05:45 09/12/18 09/13/18 09/14/18 05:59 05:59 05:59 Intake Total 450 450 Output Total 550 800 Balance -100 -350 PT 12.9 SEC (12.0-15.0) 09/02/18 18:56 INR 0.95 (0.83-1.16) 09/02/18 18:56 Neuro: M[place]in[place], sens +LT follows commands ICD10 Worksheet Patient Problems: Problems Problem Status Onset Cervical spine fracture Acute Fall Acute Fracture of thoracic spine Acute Hand fracture Acute Hand laceration Acute Humeral surgical neck fracture Acute Hyponatremia Acute Wrist fracture Acute Epiglottitis Acute Esophagitis Acute GI bleed Acute Painful swallowing Acute
[2018-09-13] MEDS: PATCH REMOVAL 1 EA PATCH TD SCH (12:38)
--- NOTE | 2018-09-13 12:48 | SOAPPROG ---
ZAIDAAP Progress Note Assessment/Plan: Assessment: s/p trauma: closed left proximal humerus fracture, ORIF distal radius fracture, right hand digit 3 middle phalanx fracture(being followed by hand ortho: Dr. Goldman). Overall doing well, pain well controlled this morning and she is sitting up in chair and she is excited to hopefully be going to [facility] today. Plan: NWB to LUE. Maintain sling and splint to LUE. Splint in good position at this time. fTLSO in place and C-spine collar in place. WBAT to RLE. DVT Prophylaxis: Continue chemoprophylaxis per hospitalists. Recommend EVANGELIST hose in conjunction with SCDs. IS. Pain control: per hospitalists. PT/OT: appreciate their reccs. NWB to LUE, can begin AROM/PROM of left hand. Maintain sling and splint at this time. In good position this am. RTC 7-10 days for repeat radiographs or prn additional questions/concerns which arise. Regarding finger fracture: continue to be managed by on-call hand. We are happy to assist in care of this if needed. Contact our office with questions/concerns: [phone] Advised patient and family to watch for worsening pain, change in ROM or strength, abnormal numbness/tingling, change in heat/color of extremities, cramping in her calves or ankles and to seek immediate medical attention if seen. Patient seen/examined in conjunction with Dr. Fam. 09/13/18 12:46 Subjective: Able to respond appropriately to questions/commands. Sitting up in chair with collars, splint and sling in place. Pain well controlled. Eating normally, passing flatus. Denies change in heat/color of extremity, cough, congestion, chest pain or shortness of breath, worsening pain over time, abnormal numbness/ tingling, worsening change in distal ROM or strength, cramping in her calves or ankles. Is in splint during my visit today and it is in good position. Objective: Vital Signs Temp Pulse Resp BP Pulse Ox 36.4 C 64 16 163/81 H 92 09/13/18 08:00 09/13/18 09:10 09/13/18 08:00 09/13/18 09:10 09/13/18 08:00 Laboratory Results 09/09/18 05:45 09/09/18 05:45 09/12/18 09/13/18 09/14/18 05:59 05:59 05:59 Intake Total 450 450 Output Total 550 800 Balance -100 -350 PT 12.9 SEC (12.0-15.0) 09/02/18 18:56 INR 0.95 (0.83-1.16) 09/02/18 18:56 AO, NAD, C-spine collar and TLSO in place, non-labored breathing, no diaphoresis. Afebrile. Abdomen soft, non-tender. MS: Bilateral upper extremities: left shoulder with 1+ non-pitting edema, mild ecchymosis, all compartments soft. Left wrist in splint. Able to wiggle fingers without difficulty and attempt to make a full fist b/l. Right hand digit 3 bandaged, able to attempt active flexion/extensio. No erythema, edema, ecchymosis or calor otherwise noted. Limited AROM of left shoulder secondary to severe pain to patient but is able to attempt AROM in FE, abduction. Is compliant in sling/splint. DNVI with no focal deficits noted. Negative passive stretch b/l. Brisk cap refill b/l. Calves soft/supple and NTTP b/l with negative bilateral Homans b/l with EVANGELIST hose not present, yet SCDs on and pumping b/l. DNVI b/l in BLUE/BLLE with no focal deficits. Brisk cap refill b/l with pedal pulses intact b/l; no deficits ICD10 Worksheet Patient Problems: Problems Problem Status Onset Cervical spine fracture Acute Fall Acute Fracture of thoracic spine Acute Hand fracture Acute Hand laceration Acute Humeral surgical neck fracture Acute Hyponatremia Acute Wrist fracture Acute Epiglottitis Acute Esophagitis Acute GI bleed Acute Painful swallowing Acute
--- NOTE | 2018-09-13 12:59 | HOSPPROG ---
Hospitalist Progress Note Assessment/Plan: Hospitalist Progress Note Assessment/Plan: 82 yo F w mechanical fall, multiple fractures, hyponatremia. # hyponatremia -SIADH, chronic -has a low urine NA, will need higher solute intake -on fluid restriction + salt tabs -has a hx of this -stable # c spine fracture, posterior ring -placed hard collar #T6 burst fracture (non displaced T8 fracture and old T2 endplate fx) -brace -etiology of back pain -neurosurgery recommends non-operative management with CRIB TENDER brace -patient is non-compliant and keeps taking off her brace. -NSG recommends brace when upright and out of bed #Humeral surgical neck fracture -non-operative management with a sling #Wrist fracture -Post op -stable #right 3rd digit phalanx fx w skin lac -sutures out in one week #severe pain due to the above -Lidoderm patch and scheduled Tylenol -prn oxy ir (low dose if needed), increased tramadol dosing #encephalopathy (toxic and metabolic) -difficult to know her baseline, she is from [place] and has a strong accent #anemia -follow # dvt proph: -Lovenox #plan: can go to SNF when ready pain seems better Subjective: Feeling ok. Cooperative. Objective: Vital Signs Temp Pulse Resp BP Pulse Ox 36.4 C 64 16 163/81 H 92 09/13/18 08:00 09/13/18 09:10 09/13/18 08:00 09/13/18 09:10 09/13/18 08:00 Laboratory Results 09/09/18 05:45 09/09/18 05:45 09/12/18 09/13/18 09/14/18 05:59 05:59 05:59 Intake Total 450 450 Output Total 550 800 Balance -100 -350 PT 12.9 SEC (12.0-15.0) 09/02/18 18:56 INR 0.95 (0.83-1.16) 09/02/18 18:56 - Physical Exam Constitutional: appears nourished, chronically ill appearing Eyes: PERRL, anicteric sclera Ears, Nose, Mouth, Throat: moist mucous membranes, hearing normal Cardiovascular: No JVD, No edema Respiratory: no respiratory distress, reduced air movement Gastrointestinal: No tenderness, No ascites Skin: warm, normal color Musculoskeletal: pain with ROM, generalized weakness Psychiatric: not anxious, poor insight, poor judgement ICD10 Worksheet Patient Problems: Problems Problem Status Onset Epiglottitis Acute GI bleed Acute Hyponatremia Acute Painful swallowing Acute Esophagitis Acute Fall Acute Humeral surgical neck fracture Acute Cervical spine fracture Acute Wrist fracture Acute Hand laceration Acute Hand fracture Acute Fracture of thoracic spine Acute
--- NOTE | 2018-09-13 13:43 | TRAUMAPN ---
Trauma Progress Note - Problem/Surgery Performed (1) Fracture of thoracic spine Assessment/Plan: etiology of back pain/neurosurgery recommends non-operative management with QUARANTINE OFFICER brace patient is now more compliant and is keeping her brace on Qualifiers: Encounter type: initial encounter Thoracic vertebra fracture level: T6 Fracture type: closed Fracture morphology: burst- unstable Qualified Code(s) : S22.052A - Unstable burst fracture of T5-T6 vertebra, initial encounter for closed fracture (2) Cervical spine fracture Assessment/Plan: C1 and C2 fx without neuro deficit /fitted with a [place] J collar, patient is compliant with her collar currently, though has removed it in the past Qualifiers: Encounter type: initial encounter Cervical vertebra fracture level: C1 Fracture type: closed Fracture morphology: other fracture Fracture alignment : nondisplaced Qualified Code(s): S12.091A - Other nondisplaced fracture of first cervical vertebra, initial encounter for closed fracture (3) Fall Assessment/Plan: mechanism of injury/high risk for repeat fall with multiple injuries and inability to use her left arm for support She was actually cleared and accepted today for transfer to [facility] ([facility]) Qualifiers: Encounter type: initial encounter Qualified Code(s): W19.XXXA - Unspecified fall, initial encounter (4) Hand fracture Assessment/Plan: Repeat plain films of the right hand show an angulated fx of the middle phalanx. The previously repair laceratiion has dehisced/I removed all sutures and gently debrided the wound and applied Silvasorb and an occlusive dressing. The on-call hand surgeon was consulted and Dr. Meade agreed to see the patient for management recommendations Qualifiers: Encounter type: initial encounter Fracture type: closed Laterality: right Qualified Code(s): S62.91XA - Unspecified fracture of right wrist and hand, initial encounter for closed fracture (5) Humeral surgical neck fracture Assessment/Plan: non-operative management with a sling/discussed with Qualifiers: Encounter type: initial encounter Fracture type: closed Fracture morphology: unspecified fracture morphology Fracture alignment: nondisplaced Laterality: left Qualified Code(s): S42.215A - Unspecified nondisplaced fracture of surgical neck of left humerus, initial encounter for closed fracture (6) Hyponatremia Assessment/Plan: continue NaCl tabs/repeat Na+/chronic problem (7) Wrist fracture Assessment/Plan: s/p ORIF with good alignment on imaging today FU outpatient with Dr. Fam Qualifiers: Encounter type: initial encounter Fracture type: closed Laterality: left Qualified Code(s): S62.102A - Fracture of unspecified carpal bone, left wrist , initial encounter for closed fracture Assessment/Plan: s/p mechanical fall with multiple fractures/altered level of consciousness returning to her baseline She would be appropriate for discharge/transfer to SNF pending management recommendations from Dr. Meade. Subjective: awake/complaining of neck pain Objective: Vital Signs Temp Pulse Resp BP Pulse Ox 36.4 C 64 16 163/81 H 92 09/13/18 08:00 09/13/18 09:10 09/13/18 08:00 09/13/18 09:10 09/13/18 08:00 Laboratory Results 09/09/18 05:45 09/09/18 05:45 09/12/18 09/13/18 09/14/18 05:59 05:59 05:59 Intake Total 450 450 Output Total 550 800 Balance -100 -350 PT 12.9 SEC (12.0-15.0) 09/02/18 18:56 INR 0.95 (0.83-1.16) 09/02/18 18:56 - C-Spine Clearance Cervical Spine Cleared: No Physical Exam - Physical Exam General Appearance: alert, mild distress, thin EENT: PERRL/EOMI Neck: other (cervical collar in place) Respiratory: lungs clear Cardiac/Chest: regular rate, rhythm Abdomen: non-tender, soft Pelvic Exam: deferred Rectal: deferred Skin: warm/dry Extremities: other (volar splint left forearm/right long finger dressing removed with underlying wound dehisence and few remaining sutures-these were removed and the wound dressed with solvasorb and occlusive dressing) Neuro/Psych: normal mood/affect, oriented x 3 Time Spent w/Patient (minutes): 35
[2018-09-13 14:21] LABS: PLATELET COUNT 380 10^3/uL (150-400)
[2018-09-13] MEDS ORDERED: hydrALAZINE 25 MG TAB PO PRN (16:41)
--- NOTE | 2018-09-13 16:49 | SOAPPROG ---
SOAP Progress Note Assessment/Plan: Assessment: Plan: 09/13/18 16:48 Cont local wound care Daily dressing changes with xeroform, dry gauze and coban F/U Jones in 1 week repeat xray 1 week Ok to [facility] from finger standpoint Subjective: not much pain in RT long finger Objective: dressing changed no signs of infection wound granulating in alignment of finger is satisfactory brisk cap refill to tip Xrays reviewed from Today there has been slight displacement of phalynxz fx Vital Signs Temp Pulse Resp BP Pulse Ox 36.7 C 60 16 181/97 H 100 09/13/18 15:42 09/13/18 15:42 09/13/18 15:42 09/13/18 15:42 09/13/18 15:42 Laboratory Results 09/13/18 14:10 09/13/18 14:10 09/12/18 09/13/18 09/14/18 05:59 05:59 05:59 Intake Total 450 450 Output Total 550 800 Balance -100 -350 PT 12.9 SEC (12.0-15.0) 09/02/18 18:56 INR 0.95 (0.83-1.16) 09/02/18 18:56 ICD10 Worksheet Patient Problems: Problems Problem Status Onset Cervical spine fracture Acute Fall Acute Fracture of thoracic spine Acute Hand fracture Acute Hand laceration Acute Humeral surgical neck fracture Acute Hyponatremia Acute Wrist fracture Acute Epiglottitis Acute Esophagitis Acute GI bleed Acute Painful swallowing Acute
[2018-09-13] MEDS: OXYBUTYNIN CHLORIDE 5 MG TAB PO SCH (19:53)
[2018-09-13] MEDS: LIDOCAINE 4%/MENTHOL 1% PATCH TD SCH (19:54)
--- NOTE | 2018-09-13 22:52 | HOSPPROG ---
Hospitalist Progress Note Assessment/Plan: Asked by Dr. Sterling's to evaluate patient, of note, hospitalist is following currently so full consult note not performed. Concerns that patient is hypertensive with SBP of > 200 today, but general rates in 150s, on lisinopril and atenolol. Also with chronic hyponatremia so diuretic not likely appropriate. Will increase lisinopril to 30mg, caution with overtreatment of BP given hx of fall on presentation and elderly/frail patient. She is to dc to snf so this can be followed there as well. Care plan reviewed with Dr. Thorpe, extended care spent with this patient from 7pm - 745 pm in bedside evaluation, management and coordination with primary team. Objective: Vital Signs Temp Pulse Resp BP Pulse Ox 36.7 C 60 16 150/58 H 100 09/13/18 15:42 09/13/18 17:31 09/13/18 15:42 09/13/18 17:31 09/13/18 15:42 Laboratory Results 09/13/18 14:10 09/13/18 14:10 09/12/18 09/13/18 09/14/18 05:59 05:59 05:59 Intake Total 450 450 700 Output Total 550 800 300 Balance -100 -350 400 PT 12.9 SEC (12.0-15.0) 09/02/18 18:56 INR 0.95 (0.83-1.16) 09/02/18 18:56 ICD10 Worksheet Patient Problems: Problems Problem Status Onset Epiglottitis Acute GI bleed Acute Hyponatremia Acute Painful swallowing Acute Esophagitis Acute Fall Acute Humeral surgical neck fracture Acute Cervical spine fracture Acute Wrist fracture Acute Hand laceration Acute Hand fracture Acute Fracture of thoracic spine Acute
[2018-09-14] MEDS: hydrALAZINE 10 MG TAB PO PRN ×3 (00:37→23:26)
[2018-09-14] MEDS: traMADol 50 MG TAB PO PRN ×4 (02:57→23:26)
[2018-09-14] MEDS: METHOCARBAMOL 750 MG TAB PO PRN ×2 (03:43→17:57)
[2018-09-14] MEDS: ACETAMINOPHEN 500 MG TAB PO SCH ×3 (05:39→22:13)
--- NOTE | 2018-09-14 07:45 | NEUSURGPN ---
Assessment/Plan: Assessment: 82 yo female s/p fall with posterior ring C1 fractures, type III fracture through the base of the dens, 3 mm posterior displacement of the dens fracture and findings of T6 burst fracture, but not compressive on the cord. Neuro intact. Plan: -CT thoracic shows T6 burst fracture, acute-non displaced T8 fracture, old T2 endplate fracture -Patient was unable to complete MRI, what was completed showed mild to moderate central canal narrowing at T6 with posterior cortical bulge. Posterior cortex abuts but does not compress the cord. Subtle acute fracture at the superior endplate of T1, inferior endplate T2, superior endplate of T4 and inferior body of T8. No retropulsion seen -Rigid cervical collar at all times can use soft collar if patient is truly non compliant but rigid collar would be best. MAIL ROOM brace when upright an OOB-there is a risk of worsening of her T6 burst fracture without the brace which could lead to stenosis/cord trauma causing a neurological deficit including paralysis. Patient is not a good candidate for kyphoplasty and is poor surgical candidate for a more invasive surgery like a fusion -PT/OT-as able -recommend SNF placement for monitoring and compliance-plan for dc to rehab today -please contact us with any changes in neuro exam/status -follow up with Dr. Schmitz 2 weeks after discharge -ok for dc to SNF per NS -call with any questions or concerns Subjective: Awake and alert. NAD. Eating/drinking and voiding. No f/c/n/v/d. Objective: Neuro: Awake and alert. NAD SANDERS x 4 5/5 BUE/BLE = except did not test left WE/WF due to cast in place sens +LT follows commands Neuro Check Frequency: per routine Urinary Catheter in Place: No - Physician Discussed Patient with Dr.: Schmitz Neurosurgery Physical Exam - Vitals, I&O, Labs I and O 09/13/18 09/14/18 09/15/18 05:59 05:59 05:59 Intake Total 450 700 Output Total 800 300 Balance -350 400 Intake: Oral (ml) 450 700 Output: Urine (ml) 600 300 Bedside Commode 600 300 Emesis (ml) 200 Other: Intake Quantity Yes Yes Sufficient Number of Voids Bedside Commode 1 Number of Stools Bedside Commode 1 Vital Signs Temp Pulse Resp BP Pulse Ox 36.8 C 68 16 160/64 H 99 09/14/18 00:35 09/14/18 00:35 09/14/18 00:35 09/14/18 02:04 09/14/18 00:35 Laboratory Results 09/13/18 14:10 09/13/18 14:10 ICD10 Worksheet Patient Problems: Problems Problem Status Onset Cervical spine fracture Acute Fall Acute Fracture of thoracic spine Acute Hand fracture Acute Hand laceration Acute Humeral surgical neck fracture Acute Hyponatremia Acute Wrist fracture Acute Epiglottitis Acute Esophagitis Acute GI bleed Acute Painful swallowing Acute
[2018-09-14] MEDS: ENOXAPARIN 40 MG/0.4 ML SYR SC SCH (08:02)
[2018-09-14] MEDS: LISINOPRIL 20 MG TAB PO SCH (08:11)
[2018-09-14] MEDS: ATENOLOL 25 MG TAB PO SCH (08:16)
[2018-09-14] MEDS: PANTOPRAZOLE SODIUM 40 MG TAB PO SCH (08:16)
[2018-09-14] MEDS: SENNOSIDES/DOCUSATE SODIUM TAB PO SCH ×2 (08:16→19:47)
[2018-09-14] MEDS: CYANO/VITAMIN B12 1000 MCG TAB PO SCH (08:17)
[2018-09-14] MEDS: SODIUM CHLORIDE 1,000 MG TAB PO SCH ×2 (08:17→17:57)
[2018-09-14] MEDS: POLYETHYLENE GLYCOL 3350 17 GM PKT PO PRN (08:18)
--- NOTE | 2018-09-14 09:13 | TRAUMAPN ---
Trauma Progress Note Assessment/Plan: 83 y/o F s/p mechanical fall Thoracic spine fx: DITCH WORKER brace per NS. Cervical spine fx: [place] J collar per NS. Right hand fx and laceration dehiscence: s/p suture removal and debridement yesterday L humeral neck fx: nonop per orther. Continue sling. L wrist fx: s/p ORIF with good alignment HTN: dose of lisinopril increased. Pt also receiving hydralazine. Dispo to SNF today. Follow up with ortho and NS as directed. S: Continued neck and back pain. Ready to be discharged to SNF O: Alert Afebrile HENT: normocephalic, atraumatic, mmm Neck: [place] J collar in place RRR ctab, no increased WOB Abdomen soft, nontender, nondistended LUE: remains in sling. Sensation in fingers intact R hand: dressing intact Objective: Vital Signs Temp Pulse Resp BP Pulse Ox 36.6 C 68 16 192/78 H 100 09/14/18 07:58 09/14/18 00:35 09/14/18 07:58 09/14/18 07:58 09/14/18 07:58 Laboratory Results 09/13/18 14:10 09/13/18 14:10 09/13/18 09/14/18 09/15/18 05:59 05:59 05:59 Intake Total 450 700 100 Output Total 800 300 400 Balance -350 400 -300 PT 12.9 SEC (12.0-15.0) 09/02/18 18:56 INR 0.95 (0.83-1.16) 09/02/18 18:56 - C-Spine Clearance Cervical Spine Cleared: No
--- NOTE | 2018-09-14 09:27 | HOSPPROG ---
Hospitalist Progress Note Assessment/Plan: 82 yo F w mechanical fall, multiple fractures, hyponatremia. 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 Says she's in pain. Objective: Vital Signs Temp Pulse Resp BP Pulse Ox 36.6 C 68 16 192/78 H 100 09/14/18 07:58 09/14/18 00:35 09/14/18 07:58 09/14/18 07:58 09/14/18 07:58 Laboratory Results 09/13/18 14:10 09/13/18 14:10 09/13/18 09/14/18 09/15/18 05:59 05:59 05:59 Intake Total 450 700 100 Output Total 800 300 400 Balance -350 400 -300 PT 12.9 SEC (12.0-15.0) 09/02/18 18:56 INR 0.95 (0.83-1.16) 09/02/18 18:56 - Physical Exam Constitutional: chronically ill appearing, other (thin) Eyes: PERRL Ears, Nose, Mouth, Throat: hearing normal Respiratory: no respiratory distress Skin: warm Musculoskeletal: generalized weakness Neurologic: other (alert) Psychiatric: interacting appropriately ICD10 Worksheet Patient Problems: Problems Problem Status Onset Cervical spine fracture Acute Fall Acute Fracture of thoracic spine Acute Hand fracture Acute Hand laceration Acute Humeral surgical neck fracture Acute Hyponatremia Acute Wrist fracture Acute Epiglottitis Acute Esophagitis Acute GI bleed Acute Painful swallowing Acute
[2018-09-14] MEDS: PATCH REMOVAL 1 EA PATCH TD SCH (10:05)
--- NOTE | 2018-09-14 13:20 | SOAPPROG ---
SOAP Progress Note Assessment/Plan: Assessment: s/p trauma: closed left proximal humerus fracture, ORIF distal radius fracture, right hand digit 3 middle phalanx fracture(being followed by hand ortho: Dr. Goldman). Overall doing well, pain well controlled this morning and she is sitting up in bed and is hopeful to be going to [facility] today. Waiting on insurance. Plan: NWB to LUE. Maintain sling and splint to LUE. Splint in good position at this time. fTLSO in place and C-spine collar in place. WBAT to RLE. DVT Prophylaxis: Continue chemoprophylaxis per hospitalists. EVANGELIST brewer in conjunction with SCDs. IS. Pain control: per hospitalists. PT/OT: appreciate their reccs. NWB to LUE, can begin AROM/PROM of left hand. Maintain sling and splint at this time. In good position this am. RTC 7-10 days in our office for repeat radiographs or prn additional questions/ concerns which arise. Regarding finger fracture: continue to be managed by on-call hand. We are happy to assist in care of this if needed. Contact our office with questions/concerns: [phone] Advised patient and family to watch for worsening pain, change in ROM or strength, abnormal numbness/tingling, change in heat/color of extremities, cramping in her calves or ankles and to seek immediate medical attention if seen. Patient seen/examined in conjunction with Dr. Fam. 09/14/18 13:17 Subjective: Able to respond appropriately to questions/commands. Sitting up in bed with collars, splint and sling in place. Pain well controlled but states she is "bored," much calmer today than she has been over the past few days. Eating normally, passing flatus. Denies change in heat/color of extremity, cough, congestion, chest pain or shortness of breath, worsening pain over time, abnormal numbness/tingling, worsening change in distal ROM or strength, cramping in her calves or ankles. Is in splint/sling during my visit today and it is in good position. Objective: Vital Signs Temp Pulse Resp BP Pulse Ox 36.6 C 63 16 156/64 H 100 09/14/18 07:58 09/14/18 09:46 09/14/18 07:58 09/14/18 09:46 09/14/18 07:58 Laboratory Results 09/13/18 14:10 09/13/18 14:10 09/13/18 09/14/18 09/15/18 05:59 05:59 05:59 Intake Total 450 700 300 Output Total 800 300 950 Balance -350 400 -650 PT 12.9 SEC (12.0-15.0) 09/02/18 18:56 INR 0.95 (0.83-1.16) 09/02/18 18:56 AO, NAD, C-spine collar and TLSO in place, non-labored breathing, no diaphoresis. Afebrile. Abdomen soft, non-tender. MS: Bilateral upper extremities: left shoulder with 1+ non-pitting edema, mild ecchymosis improving, all compartments soft. Left wrist in splint. Able to wiggle fingers without difficulty and attempt to make a full fist b/l. Right hand digit 3 bandaged, able to attempt active flexion/extension. No erythema, edema, ecchymosis or calor otherwise noted. Limited AROM of left shoulder secondary to severe pain to patient but is able to attempt AROM in FE, abduction. Is compliant in sling/splint. DNVI with no focal deficits noted. Negative passive stretch b/l. Brisk cap refill b/l. Calves soft/supple and NTTP b/l with negative bilateral Homans b/l with EVANGELIST hose present, SCDs on and pumping b/l. DNVI b/l in BLUE/BLLE with no focal deficits. Brisk cap refill b/l with pedal pulses intact b/l; no deficits - Pending Discharge Pending Discharge Within 48 Hours: Yes Pending Discharge Date: 09/16/18 Pending Discharge Time: 11:00 ICD10 Worksheet Patient Problems: Problems Problem Status Onset Cervical spine fracture Acute Fall Acute Fracture of thoracic spine Acute Hand fracture Acute Hand laceration Acute Humeral surgical neck fracture Acute Hyponatremia Acute Wrist fracture Acute Epiglottitis Acute Esophagitis Acute GI bleed Acute Painful swallowing Acute
--- NOTE | 2018-09-14 16:26 | ASMTCMCOM ---
CM Note CM Note Notes: Pt insurance changed on the first to [employer]. [facility] currently working on getting insurance auth. CM spoke with family ([place] [phone]) to obtain numbers from insurance card. CM provided to [facility]. CM also spoke with pt's son Jaya to inform of updates. Plan: DC to [facility] pending insurance auth Date Signed: 09/14/2018 04:25 PM Electronically Signed By:JENIFFER Glasgow
[2018-09-14] MEDS: LIDOCAINE 4%/MENTHOL 1% PATCH TD SCH (19:47)
[2018-09-14] MEDS: OXYBUTYNIN CHLORIDE 5 MG TAB PO SCH (19:48)
[2018-09-15] MEDS: METHOCARBAMOL 750 MG TAB PO PRN ×4 (01:04→22:09)
[2018-09-15] MEDS: traMADol 50 MG TAB PO PRN ×3 (05:01→20:32)
[2018-09-15] MEDS: MBX SOLN 30 ML BOTTLE PO PRN ×3 (05:56→10:42)
[2018-09-15] MEDS: ACETAMINOPHEN 500 MG TAB PO SCH ×3 (05:58→22:12)
[2018-09-15] MEDS: hydrALAZINE 10 MG TAB PO PRN ×2 (06:24→15:55)
[2018-09-15] MEDS: SODIUM CHLORIDE 1,000 MG TAB PO SCH ×2 (07:59→18:37)
[2018-09-15] MEDS: PANTOPRAZOLE SODIUM 40 MG TAB PO SCH (08:00)
[2018-09-15] MEDS: SENNOSIDES/DOCUSATE SODIUM TAB PO SCH ×2 (08:09→20:32)
[2018-09-15] MEDS: ATENOLOL 50 MG TAB PO SCH (08:09)
[2018-09-15] MEDS: CYANO/VITAMIN B12 1000 MCG TAB PO SCH (08:10)
[2018-09-15] MEDS: POLYETHYLENE GLYCOL 3350 17 GM PKT PO PRN (08:10)
[2018-09-15] MEDS: ENOXAPARIN 40 MG/0.4 ML SYR SC SCH (08:10)
[2018-09-15] MEDS: PATCH REMOVAL 1 EA PATCH TD SCH (08:11)
[2018-09-15] MEDS: LISINOPRIL 20 MG TAB PO SCH (08:24)
[2018-09-15] MEDS: oxyCODONE IR 5 MG TAB PO PRN ×3 (09:05→22:29)
--- NOTE | 2018-09-15 09:10 | NEUSURGPN ---
Assessment/Plan: Assessment: 82 yo female s/p fall with posterior ring C1 fractures, type III fracture through the base of the dens, 3 mm posterior displacement of the dens fracture and findings of T6 burst fracture, but not compressive on the cord. Neuro intact. Plan: -CT thoracic shows T6 burst fracture, acute-non displaced T8 fracture, old T2 endplate fracture -Patient was unable to complete MRI, what was completed showed mild to moderate central canal narrowing at T6 with posterior cortical bulge. Posterior cortex abuts but does not compress the cord. Subtle acute fracture at the superior endplate of T1, inferior endplate T2, superior endplate of T4 and inferior body of T8. No retropulsion seen -Rigid cervical collar at all times can use soft collar if patient is truly non compliant but rigid collar would be best. JOB CHECKER brace when upright an OOB-there is a risk of worsening of her T6 burst fracture without the brace which could lead to stenosis/cord trauma causing a neurological deficit including paralysis. Patient is not a good candidate for kyphoplasty and is poor surgical candidate for a more invasive surgery like a fusion -PT/OT -recommend SNF placement for monitoring and compliance-plan for dc to rehab today if bed available. Will s/o at this time. -please contact us with any changes in neuro exam/status -follow up with Dr. Schmitz 2 weeks after discharge -call with any questions or concerns Subjective: mid back pain. Objective: Awake and alert. NAD Patient in bed wearing JOB CHECKER brace SANDERS x 4 5/5 BUE/BLE = except left WE/WF not tested due to cast in place sensation +LT - Physician Discussed Patient with Dr.: Schmitz Neurosurgery Physical Exam - Vitals, I&O, Labs I and O 09/14/18 09/15/18 09/16/18 05:59 05:59 05:59 Intake Total 700 500 Output Total 300 1025 Balance 400 -525 Intake: Oral (ml) 700 500 Output: Urine (ml) 300 1025 Bedside Commode 300 1025 Other: Intake Quantity Yes Yes Sufficient Number of Voids Bedside Commode 1 2 Vital Signs Temp Pulse Resp BP Pulse Ox 36.6 C 70 19 158/75 H 92 09/15/18 07:50 09/15/18 08:09 09/15/18 07:50 09/15/18 08:09 09/15/18 07:50 Laboratory Results 09/13/18 14:10 09/13/18 14:10 ICD10 Worksheet Patient Problems: Problems Problem Status Onset Cervical spine fracture Acute Fall Acute Fracture of thoracic spine Acute Hand fracture Acute Hand laceration Acute Humeral surgical neck fracture Acute Hyponatremia Acute Wrist fracture Acute Epiglottitis Acute Esophagitis Acute GI bleed Acute Painful swallowing Acute
--- NOTE | 2018-09-15 09:49 | SOAPPROG ---
ZAIDAAP Progress Note Assessment/Plan: Assessment: s/p trauma: closed left proximal humerus fracture, ORIF distal radius fracture, right hand digit 3 middle phalanx fracture(being followed by hand ortho: Dr. Goldman). Overall doing well, pain well controlled this morning and she is sitting up in bed and is hopeful to be going to [facility] today. Waiting on insurance. Plan: NWB to LUE. Maintain sling and splint to LUE. Splint in good position at this time. fTLSO in place and C-spine collar in place. WBAT to RLE. DVT Prophylaxis: Continue chemoprophylaxis per hospitalists. EVANGELIST brewer in conjunction with SCDs. IS. Pain control: per hospitalists. PT/OT: appreciate their reccs. NWB to LUE, can begin AROM/PROM of left hand. Maintain sling and splint at this time. In good position this am. RTC 7-10 days after date of surgery in our office for repeat radiographs and suture removal or prn additional questions/concerns which arise. Regarding finger fracture: continue to be managed by on-call hand. We are happy to assist in care of this if needed. Contact our office with questions/concerns: [phone] Advised patient and family to watch for worsening pain, change in ROM or strength, abnormal numbness/tingling, change in heat/color of extremities, cramping in her calves or ankles and to seek immediate medical attention if seen. Patient seen/examined in conjunction with Dr. Fam. 09/15/18 09:47 Subjective: Able to respond appropriately to questions/commands. Sitting up in bed with collars, splint and sling in place. Pain well controlled and is somnolent today , much calmer today than she has been over the past few days. Eating normally, passing flatus. Denies change in heat/color of extremity, cough, congestion, chest pain or shortness of breath, worsening pain over time, abnormal numbness/ tingling, worsening change in distal ROM or strength, cramping in her calves or ankles. Is in splint/sling during my visit today and it is in good position. Objective: Vital Signs Temp Pulse Resp BP Pulse Ox 36.6 C 70 19 158/75 H 92 09/15/18 07:50 09/15/18 08:09 09/15/18 07:50 09/15/18 08:09 09/15/18 07:50 Laboratory Results 09/13/18 14:10 09/13/18 14:10 09/14/18 09/15/18 09/16/18 05:59 05:59 05:59 Intake Total 700 500 Output Total 300 1025 Balance 400 -525 PT 12.9 SEC (12.0-15.0) 09/02/18 18:56 INR 0.95 (0.83-1.16) 09/02/18 18:56 AO, NAD, C-spine collar and TLSO in place, non-labored breathing, no diaphoresis. Afebrile. Abdomen soft, non-tender. MS: Bilateral upper extremities: left shoulder with 1+ non-pitting edema, mild ecchymosis improving, all compartments soft. Left wrist in splint. Able to wiggle fingers without difficulty and attempt to make a full fist b/l. Right hand digit 3 bandaged, able to attempt active flexion/extension. No erythema, edema, ecchymosis or calor otherwise noted. Limited AROM of left shoulder secondary to severe pain to patient but is able to attempt AROM in FE, abduction. Is compliant in sling/splint. DNVI with no focal deficits noted. Negative passive stretch b/l. Brisk cap refill b/l. Calves soft/supple and NTTP b/l with negative bilateral Homans b/l with EVANGELIST hose present, SCDs on and pumping b/l. DNVI b/l in BLUE/BLLE with no focal deficits. Brisk cap refill b/l with pedal pulses intact b/l; no deficits - Pending Discharge Pending Discharge Within 48 Hours: Yes Pending Discharge Date: 09/17/18 Pending Discharge Time: 11:00 ICD10 Worksheet Patient Problems: Problems Problem Status Onset Cervical spine fracture Acute Fall Acute Fracture of thoracic spine Acute Hand fracture Acute Hand laceration Acute Humeral surgical neck fracture Acute Hyponatremia Acute Wrist fracture Acute Epiglottitis Acute Esophagitis Acute GI bleed Acute Painful swallowing Acute
--- NOTE | 2018-09-15 09:59 | HOSPPROG ---
Hospitalist Progress Note Assessment/Plan: 82 yo F w mechanical fall, multiple fractures, hyponatremia. 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 # c spine fracture, posterior ring -placed hard collar #T6 burst fracture (non displaced T8 fracture and old T2 endplate fx) -brace #right 3rd digit phalanx fx w skin lac -sutures out in one week #uncontrolled htn -lisinopril, Tenormin doses increased w some improvement #underweight w a BMI of 20 -calorie count -asked dietary to see -she says she can't eat #severe pain due to the above -she appears more comfortable today -wants to go back to bed -now leaving brace on #encephalopathy (toxic and metabolic) -appears to be resolving #anemia -follow # dvt proph: -Lovenox #plan: dc today per trauma services Subjective: Smitha says she is in pain but when asked if better, she said yes. Objective: Vital Signs Temp Pulse Resp BP Pulse Ox 36.6 C 70 19 158/75 H 92 09/15/18 07:50 09/15/18 08:09 09/15/18 07:50 09/15/18 08:09 09/15/18 07:50 Laboratory Results 09/13/18 14:10 09/13/18 14:10 09/14/18 09/15/18 09/16/18 05:59 05:59 05:59 Intake Total 700 500 Output Total 300 1025 Balance 400 -525 PT 12.9 SEC (12.0-15.0) 09/02/18 18:56 INR 0.95 (0.83-1.16) 09/02/18 18:56 - Physical Exam Constitutional: chronically ill appearing, other (thin) Eyes: PERRL Ears, Nose, Mouth, Throat: hearing normal, other (neck brace) Cardiovascular: regular rate and rhythym Respiratory: no respiratory distress, reduced air movement Skin: warm Musculoskeletal: generalized weakness Psychiatric: interacting appropriately ICD10 Worksheet Patient Problems: Problems Problem Status Onset Cervical spine fracture Acute Fall Acute Fracture of thoracic spine Acute Hand fracture Acute Hand laceration Acute Humeral surgical neck fracture Acute Hyponatremia Acute Wrist fracture Acute Epiglottitis Acute Esophagitis Acute GI bleed Acute Painful swallowing Acute
[2018-09-15] MEDS: ONDANSETRON DISINTEGRATING 4 MG TAB PO PRN ×2 (14:05→20:31)
--- NOTE | 2018-09-15 18:05 | TRAUMAPN ---
Trauma Progress Note Assessment/Plan: 83-year-old patient who presented to the hospital after unwitnessed fall prolonged time down with [facility] transition to home and then hospital by ambulance. The patient was found to have C1-C2 fracture as well as T6 burst fracture which could cause cord compromise. The patient is now more compliant with her brace but it may not be the best fit. Alert oriented. Complains of back pain severe. Sclerae anicteric. Pupils reactive extraocular motions intact. Poor dentition. Trachea midline Regular rate and rhythm Clear to auscultation Abdomen soft nontender Full muscle strength bilateral lower extremities with good motor and sensory response. ORIF left forearm sling recommended by Dr. Fam orthopedic surgery Impression/plan overall better. Discharge planning held due to change in insurance Added oxycodone to her pain regimen today to see whether not she has better pain control for her back More compliant with FRUIT FARMWORKER. Will need to reinforce with family regarding risk of spinal cord injury if she does not wear FRUIT FARMWORKER brace. Discussed with nursing staff and Neurosurgery. Will continue to follow up. Chronic hyponatremia seen by medicine for this. No current treatment. Continue supportive care Objective: Vital Signs Temp Pulse Resp BP Pulse Ox 36.6 C 55 L 17 190/80 H 95 09/15/18 15:46 09/15/18 14:17 09/15/18 15:46 09/15/18 15:46 09/15/18 15:46 Laboratory Results 09/13/18 14:10 09/13/18 14:10 09/14/18 09/15/18 09/16/18 05:59 05:59 05:59 Intake Total 700 500 Output Total 300 1025 Balance 400 -525 PT 12.9 SEC (12.0-15.0) 09/02/18 18:56 INR 0.95 (0.83-1.16) 09/02/18 18:56 - C-Spine Clearance Cervical Spine Cleared: No
[2018-09-15] MEDS: OXYBUTYNIN CHLORIDE 5 MG TAB PO SCH (20:31)
[2018-09-15] MEDS: LIDOCAINE 4%/MENTHOL 1% PATCH TD SCH (22:29)
[2018-09-16] MEDS: oxyCODONE IR 5 MG TAB PO PRN ×6 (00:19→23:31)
[2018-09-16] MEDS: ACETAMINOPHEN 500 MG TAB PO SCH ×4 (00:19→23:49)
[2018-09-16] MEDS: hydrALAZINE 10 MG TAB PO PRN ×4 (00:41→20:58)
[2018-09-16] MEDS: METHOCARBAMOL 750 MG TAB PO PRN ×2 (03:20→21:04)
[2018-09-16] MEDS: traMADol 50 MG TAB PO PRN ×2 (03:21→19:46)
[2018-09-16] MEDS: ONDANSETRON DISINTEGRATING 4 MG TAB PO PRN (03:21)
[2018-09-16] MEDS: SODIUM CHLORIDE 1,000 MG TAB PO SCH (08:17)
--- NOTE | 2018-09-16 08:45 | ASMTCMCOM ---
CM Note CM Note Notes: [place] insurance auth did not come in by close of business yesterday, unlikely to receive over the weekend so pt likely here until at least Tuesday. Date Signed: 09/16/2018 08:44 AM Electronically Signed By:YANE Moreno
--- NOTE | 2018-09-16 08:47 | HOSPPROG ---
Hospitalist Progress Note Assessment/Plan: 82 yo F w mechanical fall, multiple fractures, hyponatremia. 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 # c spine fracture, posterior ring -placed hard collar #T6 burst fracture (non displaced T8 fracture and old T2 endplate fx) -brace #right 3rd digit phalanx fx w skin lac -sutures out in one week #uncontrolled htn -lisinopril, Tenormin doses increased w some improvement #underweight w a BMI of 20 -calorie count -asked dietary to see -she says she can't eat #mouth pain -trial of Orajel #severe pain due to the above -she appears more comfortable today -wants to go back to bed -now leaving brace on #encephalopathy (toxic and metabolic) -appears to be resolving #anemia -follow # dvt proph: -Lovenox #plan: will hold salt tabs, suspect this is causing high bp, encouraged Smitha to take in more intake, calorie count in progress. Will recheck chemistry panel in the morning since holding salt tabs. Subjective: Smitha said her mouth is hurting Objective: Vital Signs Temp Pulse Resp BP Pulse Ox 36.7 C 78 16 200/74 H 91 L 09/16/18 05:27 09/16/18 05:27 09/16/18 05:27 09/16/18 05:30 09/16/18 05:27 Laboratory Results 09/13/18 14:10 09/13/18 14:10 09/15/18 09/16/18 09/17/18 05:59 05:59 05:59 Intake Total 500 950 Output Total 1025 Balance -525 950 PT 12.9 SEC (12.0-15.0) 09/02/18 18:56 INR 0.95 (0.83-1.16) 09/02/18 18:56 - Physical Exam Constitutional: chronically ill appearing, other (thin) Eyes: PERRL Ears, Nose, Mouth, Throat: hearing normal Respiratory: no respiratory distress Skin: warm Musculoskeletal: generalized weakness Neurologic: AAOx3 Psychiatric: interacting appropriately ICD10 Worksheet Patient Problems: Problems Problem Status Onset Cervical spine fracture Acute Fall Acute Fracture of thoracic spine Acute Hand fracture Acute Hand laceration Acute Humeral surgical neck fracture Acute Hyponatremia Acute Wrist fracture Acute Epiglottitis Acute Esophagitis Acute GI bleed Acute Painful swallowing Acute
[2018-09-16] MEDS: ATENOLOL 50 MG TAB PO SCH (10:00)
[2018-09-16] MEDS: ENOXAPARIN 40 MG/0.4 ML SYR SC SCH (10:00)
[2018-09-16] MEDS: CYANO/VITAMIN B12 1000 MCG TAB PO SCH (10:01)
[2018-09-16] MEDS: LISINOPRIL 20 MG TAB PO SCH (10:02)
[2018-09-16] MEDS: SENNOSIDES/DOCUSATE SODIUM TAB PO SCH (10:02)
[2018-09-16] MEDS: PANTOPRAZOLE SODIUM 40 MG TAB PO SCH (10:02)
[2018-09-16] MEDS: PATCH REMOVAL 1 EA PATCH TD SCH (10:09)
[2018-09-16] MEDS: MBX SOLN 30 ML BOTTLE PO PRN (14:10)
[2018-09-16] MEDS: BENZOCAINE 20%/MENTHOL (ORAJEL) GEL 11.9GM TUBE TP PRN ×2 (16:25→18:37)
--- NOTE | 2018-09-16 19:05 | SOAPPROG ---
ZAIDAAP Progress Note Assessment/Plan: Assessment: -Closed Left proxmal humerus fracture -ORIF left distal radius fracture with Dr. Fam -Right hand 3rd digit middle phalanx fracture, managed by Dr. Goldman. Plan: -Pt. to continue to be in LUE splint and sling at all times. -Maintain NWB status to the LUE -Continue PT/OT-pt may begin to work in AROM and PROM of the hand while in her splint and sling. -Pain management-continue per hospitalists -Mechanical VTE prophylaxis with EVANGELIST's and SCD's. -Chemoprophylaxis continue per hospitalists -Followup with [facility] in 7-10 days. Call [phone] to schedule. -Please notify us for any concerns or questions regarding Smitha's left upper extremity injuries. S: Pt. states that her left upper arm and wrist feel pretty good. Most of her pain today seems to be coming from the right side of her tongue-RN states she has been treated with orajel. She's also uncomfortable in her neck brace. However, she denies any LE pain or swelling, No LE N/T. No new UE N/T. No difficulty with movement of the fingers. O: Pt. was eating dinner when I arrived but stopped due to her tongue pain. She is answering questions appropriately, in NAD but having a hard time getting comfortable, lots of shifting around. Exam of her LUE reveals ecchymosis to the left shoulder area, primarily laterally and posteriorly, extending to the mid-humerus. ROM not assessed due to her fracture. Exam of the hand reveals intact sensation to all digits, warm, dry pink skin to all fingers, she can move them all without difficulty. Cap. refill is brisk. Splint and sling in place. Distally she is NVI with intact sensation to all toes, no calf pain to palpate, calves soft, supple. Plan: 09/16/18 18:48 Objective: Vital Signs Temp Pulse Resp BP Pulse Ox 37.1 C 65 16 164/77 H 93 09/16/18 16:00 09/16/18 16:00 09/16/18 16:00 09/16/18 16:00 09/16/18 16:00 Laboratory Results 09/13/18 14:10 09/13/18 14:10 09/15/18 09/16/18 09/17/18 05:59 05:59 05:59 Intake Total 500 950 325 Output Total 1025 450 Balance -525 950 -125 PT 12.9 SEC (12.0-15.0) 09/02/18 18:56 INR 0.95 (0.83-1.16) 09/02/18 18:56 ICD10 Worksheet Patient Problems: Problems Problem Status Onset Cervical spine fracture Acute Fall Acute Fracture of thoracic spine Acute Hand fracture Acute Hand laceration Acute Humeral surgical neck fracture Acute Hyponatremia Acute Wrist fracture Acute Epiglottitis Acute Esophagitis Acute GI bleed Acute Painful swallowing Acute
--- NOTE | 2018-09-16 19:31 | TRAUMAPN ---
Trauma Progress Note - Problem/Surgery Performed (1) Fracture of thoracic spine Assessment/Plan: etiology of back pain/neurosurgery recommends non-operative management with HVAC SHEET METAL INSTALLER brace patient is now more compliant and is keeping her brace on Qualifiers: Encounter type: initial encounter Thoracic vertebra fracture level: T6 Fracture type: closed Fracture morphology: burst- unstable Qualified Code(s) : S22.052A - Unstable burst fracture of T5-T6 vertebra, initial encounter for closed fracture (2) Cervical spine fracture Assessment/Plan: C1 and C2 fx without neuro deficit /fitted with a [employer] J collar, patient is compliant with her collar currently, though has removed it in the past No neuro deficits Qualifiers: Encounter type: initial encounter Cervical vertebra fracture level: C1 Fracture type: closed Fracture morphology: other fracture Fracture alignment : nondisplaced Qualified Code(s): S12.091A - Other nondisplaced fracture of first cervical vertebra, initial encounter for closed fracture (3) Fall Assessment/Plan: mechanism of injury/high risk for repeat fall with multiple injuries and inability to use her left arm for support She is appropriate for inpatient rehab or SNF, but would not be independent at home yet. Qualifiers: Encounter type: initial encounter Qualified Code(s): W19.XXXA - Unspecified fall, initial encounter (4) Hand fracture Assessment/Plan: Repeat plain films of the right hand show an angulated fx of the middle phalanx. The previously repaired laceration has dehisced, this was debrided at the bedside today and redressed with silvasorb, xeroform and occlusive dressing She will follow up with Dr. Goldman or Dr. Meade next week Qualifiers: Encounter type: initial encounter Fracture type: closed Laterality: right Qualified Code(s): S62.91XA - Unspecified fracture of right wrist and hand, initial encounter for closed fracture (5) Humeral surgical neck fracture Assessment/Plan: non-operative management with a sling and non-wt bearing Qualifiers: Encounter type: initial encounter Fracture type: closed Fracture morphology: unspecified fracture morphology Fracture alignment: nondisplaced Laterality: left Qualified Code(s): S42.215A - Unspecified nondisplaced fracture of surgical neck of left humerus, initial encounter for closed fracture (6) Hyponatremia Assessment/Plan: continue NaCl tabs/repeat Na+/chronic problem (7) Wrist fracture Assessment/Plan: s/p ORIF with good alignment on imaging today FU outpatient with Dr. Fam Qualifiers: Encounter type: initial encounter Fracture type: closed Laterality: left Qualified Code(s): S62.102A - Fracture of unspecified carpal bone, left wrist , initial encounter for closed fracture Assessment/Plan: s/p mechanical fall with multiple fractures/altered level of consciousness returning to her baseline She would be appropriate for discharge/transfer to SNF pending insurance approval Subjective: awake and alert complaining of mild pain in her neck Objective: Vital Signs Temp Pulse Resp BP Pulse Ox 37.1 C 65 16 164/77 H 93 09/16/18 16:00 09/16/18 16:00 09/16/18 16:00 09/16/18 16:00 09/16/18 16:00 Laboratory Results 09/13/18 14:10 09/13/18 14:10 09/15/18 09/16/18 09/17/18 05:59 05:59 05:59 Intake Total 500 950 325 Output Total 1025 450 Balance -525 950 -125 PT 12.9 SEC (12.0-15.0) 09/02/18 18:56 INR 0.95 (0.83-1.16) 09/02/18 18:56 - C-Spine Clearance Cervical Spine Cleared: No Physical Exam - Physical Exam General Appearance: alert, mild distress EENT: other (superficial ulceration right lateral tongue) Neck: other (cervical collar in place) Respiratory: lungs clear, normal breath sounds, decreased breath sounds Cardiac/Chest: regular rate, rhythm Abdomen: non-tender, soft Pelvic Exam: deferred Rectal: deferred Skin: warm/dry Extremities: other (LUE volar splint intact/using sling, R long finger wound with superficial yellow slough-debrided and redressed) Neuro/Psych: normal mood/affect Time Spent w/Patient (minutes): 25
[2018-09-16] MEDS: LIDOCAINE 4%/MENTHOL 1% PATCH TD SCH (23:55)
[2018-09-17] MEDS: SENNOSIDES/DOCUSATE SODIUM TAB PO SCH ×3 (00:07→22:01)
[2018-09-17] MEDS: OXYBUTYNIN CHLORIDE 5 MG TAB PO SCH ×2 (00:08→22:01)
[2018-09-17] MEDS: traMADol 50 MG TAB PO PRN ×2 (02:29→22:04)
[2018-09-17] MEDS: oxyCODONE IR 5 MG TAB PO PRN ×5 (03:31→22:03)
[2018-09-17] MEDS: ACETAMINOPHEN 500 MG TAB PO SCH ×3 (06:08→22:01)
[2018-09-17] MEDS: PANTOPRAZOLE SODIUM 40 MG TAB PO SCH (08:45)
[2018-09-17] MEDS: LISINOPRIL 20 MG TAB PO SCH (08:45)
[2018-09-17] MEDS: hydrALAZINE 10 MG TAB PO PRN ×3 (08:46→17:44)
[2018-09-17] MEDS: CYANO/VITAMIN B12 1000 MCG TAB PO SCH (08:47)
[2018-09-17] MEDS: ENOXAPARIN 40 MG/0.4 ML SYR SC SCH (08:47)
[2018-09-17] MEDS: ATENOLOL 50 MG TAB PO SCH (08:47)
[2018-09-17] MEDS: BENZOCAINE 20%/MENTHOL (ORAJEL) GEL 11.9GM TUBE TP PRN ×2 (09:03→17:49)
[2018-09-17] MEDS: PATCH REMOVAL 1 EA PATCH TD SCH (09:04)
[2018-09-17] MEDS: ONDANSETRON DISINTEGRATING 4 MG TAB PO PRN ×3 (09:10→22:01)
--- NOTE | 2018-09-17 09:24 | SOAPPROG ---
ANDRZEJ Progress Note Assessment/Plan: Assessment: TERTIARY EXAM 82-YEAR-OLD FEMALE STATUS POST A FALL WITH QUESTIONABLE LOC C1-C2 CERVICAL FRACTURE WITH NO SIGNIFICANT SYMPTOMS, PRESENTLY IN A CERVICAL COLLAR. THIS NEEDS TO BE REPLACED WITH A BETTER FITTING COLLAR MULTIPLE THORACIC COMPRESSION FRACTURES WHICH ARE ALSO ASYMPTOMATIC LEFT HUMERAL FRACTURE TREATED WITH SLING AND NONWEIGHTBEARING LEFT RADIAL FRACTURE SPLINTED AND REDUCED WITH FOLLOW-UP EVALUATION AND 3-7 DAYS RIGHT PHALANX FRACTURE HEENT WITHOUT EVIDENCE OF TRAUMA, NONICTERIC, PERRLA, EOMS INTACT CHEST CLEAR AND SYMMETRIC AND NONTENDER COR REGULAR RHYTHM ABDOMEN SOFT NONTENDER WITHOUT MASSES ORGANOMEGALY EXTREMITIES WITH MULTIPLE SPLINTS NOTED ABOVE NEURO: RESPONSIVE, COOPERATIVE BUT PERSEVERATING AND SOMEWHAT DISORIENTED SKIN NO MAJOR LESIONS ABRASIONS OR LACERATIONS EXCEPT ON HER 3RD FINGER NEW PROBLEM TODAY IS HYPONATREMIA WILL GET A MEDICAL CONSULTATION FOR AND FOLLOWUP SODIUM LEVEL SHE IS QUITE UNCOMFORTABLE IN HER CERVICAL COLLAR AND WE MAY NEED A BETTER FITTING COLLAR/NEUROSURGERY EVALUATING THAT Plan: CONTINUE SUPPORTIVE CARE WITH ORTHO A NEUROSURGERY FOLLOW-UP 09/03/18 09:48 09/05/18 09:44 VITAL SIGNS STABLE/AFEBRILE/MOVING REASONABLY WELL LEFT ARM IN A SLING/CERVICAL COLLAR IN PLACE CHEST CLEAR COR REGULAR RHYTHM ABDOMEN SOFT NONTENDER A MAJOR PROBLEM IS KEEPING HER CERVICAL COLLAR IN PLACE SHE CONTINUES TO TRY TO REMOVE IT FREQUENTLY/RISKS AND OPTIONS BEEN FULLY DISCUSSED PLAN: SHE WILL NEED REHAB SOON 09/17/18 09:21 NO REAL CHANGE TODAY/STILL COMPLAINS OF NECK PAIN/PRESENTLY IN A CERVICAL COLLAR ,CARD GAME OPERATOR BRACE, LEFT ARM SPLINT AND SLING CHEST CLEAR AND SYMMETRIC/COR REGULAR RHYTHM/ABDOMEN SOFT NONTENDER/EXTREMITIES WITH ADEQUATE CIRCULATION/NEURO REASONABLY ORIENTED AND APPROPRIATE STILL AWAITING SNF PLACEMENT CONTINUES WITH 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 Objective: Vital Signs Temp Pulse Resp BP Pulse Ox 36.6 C 78 18 203/70 H 93 09/17/18 07:52 09/17/18 08:47 09/17/18 07:52 09/17/18 08:47 09/17/18 07:52 Laboratory Results 09/13/18 14:10 09/17/18 05:08 09/16/18 09/17/18 09/18/18 05:59 05:59 05:59 Intake Total 950 945 Output Total 450 Balance 950 495 PT 12.9 SEC (12.0-15.0) 09/02/18 18:56 INR 0.95 (0.83-1.16) 09/02/18 18:56 ICD10 Worksheet Patient Problems: Problems Problem Status Onset Cervical spine fracture Acute Fall Acute Fracture of thoracic spine Acute Hand fracture Acute Hand laceration Acute Humeral surgical neck fracture Acute Hyponatremia Acute Wrist fracture Acute Epiglottitis Acute Esophagitis Acute GI bleed Acute Painful swallowing Acute
--- NOTE | 2018-09-17 11:59 | HOSPPROG ---
Hospitalist Progress Note Assessment/Plan: 82 yo F w mechanical fall, multiple fractures, hyponatremia. 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 -resumed salt tabs (bp remained high even without using them) # c spine fracture, posterior ring -placed hard collar #T6 burst fracture (non displaced T8 fracture and old T2 endplate fx) -brace #right 3rd digit phalanx fx w skin lac -sutures out in one week #uncontrolled htn -lisinopril, Tenormin doses increased -added Norvasc today w improvement #underweight w a BMI of 20 -calorie count -asked dietary to see -she says she can't eat #mouth pain -trial of Orajel #severe pain due to the above -pain is ongoing, will try a different class of drug-will see if gabapentin scheduled helps #encephalopathy (toxic and metabolic) -rsolved #anemia -follow # dvt proph: -Lovenox #plan: trial of gabapentin, resume salt tabs, Norvasc Subjective: [place] is c/o back pain. Objective: Vital Signs Temp Pulse Resp BP Pulse Ox 36.7 C 65 16 169/82 H 94 09/17/18 11:47 09/17/18 11:47 09/17/18 11:47 09/17/18 11:47 09/17/18 11:47 Laboratory Results 09/13/18 14:10 09/17/18 05:08 09/16/18 09/17/18 09/18/18 05:59 05:59 05:59 Intake Total 950 945 590 Output Total 450 650 Balance 950 495 -60 PT 12.9 SEC (12.0-15.0) 09/02/18 18:56 INR 0.95 (0.83-1.16) 09/02/18 18:56 - Physical Exam Constitutional: chronically ill appearing, other (thin) Eyes: PERRL Ears, Nose, Mouth, Throat: hearing normal Cardiovascular: regular rate and rhythym Respiratory: no respiratory distress Skin: warm Musculoskeletal: generalized weakness Psychiatric: interacting appropriately ICD10 Worksheet Patient Problems: Problems Problem Status Onset Cervical spine fracture Acute Fall Acute Fracture of thoracic spine Acute Hand fracture Acute Hand laceration Acute Humeral surgical neck fracture Acute Hyponatremia Acute Wrist fracture Acute Epiglottitis Acute Esophagitis Acute GI bleed Acute Painful swallowing Acute
[2018-09-17] MEDS: METHOCARBAMOL 750 MG TAB PO PRN (12:29)
--- NOTE | 2018-09-17 12:48 | SOAPPROG ---
SOAP Progress Note Assessment/Plan: Assessment: -Closed Left proxmal humerus fracture -ORIF left distal radius fracture with Dr. Fam -Right hand 3rd digit middle phalanx fracture, managed by Dr. Goldman. Plan: -Pt. to continue to be in LUE splint and sling at all times. -Maintain NWB status to the LUE -Continue PT/OT-pt may begin to work in AROM and PROM of the hand while in her splint and sling. -Pain management-continue per hospitalists -Mechanical VTE prophylaxis with EVANGELIST's and SCD's. -Chemoprophylaxis continue per hospitalists -Followup with [facility] in the next 3-5 days. Call [phone] to schedule. -Please notify us for any concerns or questions regarding Smitha's left upper extremity injuries. S: Pt. states that her left upper arm and wrist feel pretty good. Most of her pain today seems to be coming from the right side of her back-having a hard time getting comfortable. She's also uncomfortable in her neck brace. However , she denies any LE pain or swelling, No LE N/T. No new UE N/T. No difficulty with movement of the fingers. O: Smitha is awake, alert, answering questions appropriately, in NAD but having a hard time getting comfortable, lots of shifting around. Exam of her LUE reveals ecchymosis to the left shoulder area, better than yesterday, primarily laterally and posteriorly, extending to the mid-humerus. ROM not assessed due to her fracture. Exam of the hand reveals intact sensation to all digits, warm , dry pink skin to all fingers, she can move them all without difficulty. Cap. refill is brisk. Splint and sling in place. Distally she is NVI with intact sensation to all toes, no calf pain to palpate, calves soft, supple. Plan: 09/16/18 18:48 09/17/18 12:46 Objective: Vital Signs Temp Pulse Resp BP Pulse Ox 36.7 C 65 16 169/82 H 94 09/17/18 11:47 09/17/18 11:47 09/17/18 11:47 09/17/18 11:47 09/17/18 11:47 Laboratory Results 09/13/18 14:10 09/17/18 05:08 09/16/18 09/17/18 09/18/18 05:59 05:59 05:59 Intake Total 950 945 590 Output Total 450 650 Balance 950 495 -60 PT 12.9 SEC (12.0-15.0) 09/02/18 18:56 INR 0.95 (0.83-1.16) 09/02/18 18:56 ICD10 Worksheet Patient Problems: Problems Problem Status Onset Cervical spine fracture Acute Fall Acute Fracture of thoracic spine Acute Hand fracture Acute Hand laceration Acute Humeral surgical neck fracture Acute Hyponatremia Acute Wrist fracture Acute Epiglottitis Acute Esophagitis Acute GI bleed Acute Painful swallowing Acute
[2018-09-17] MEDS: GABAPENTIN 100 MG CAP PO SCH ×3 (14:02→22:01)
--- NOTE | 2018-09-17 14:33 | ASMTCMCOM ---
CM Note CM Note Notes: Pts and son in law came in today and told CM they don't want pt to go to [facility] and that they want her to go to [facility], a SNF closer to her who lives in [place]. CM submit referral to [facility] and called Yaneli Valentin ([phone]) real estate coordinator to alert of information. CM also provided education that pt may be able to get transfered to [facility] from [facility]. At this time we are awaiting insurance Auth from [facility] for [facility]. CM to follow Plan: [facility] SNF vs [facility]? Date Signed: 09/17/2018 02:33 PM Electronically Signed By:JENIFFER Glasgow
[2018-09-17] MEDS: SODIUM CHLORIDE 1,000 MG TAB PO SCH (17:44)
[2018-09-17] MEDS: LIDOCAINE 4%/MENTHOL 1% PATCH TD SCH (22:12)
[2018-09-18] MEDS: METHOCARBAMOL 750 MG TAB PO PRN (00:22)
[2018-09-18] MEDS: ACETAMINOPHEN 500 MG TAB PO SCH ×4 (05:27→21:50)
[2018-09-18] MEDS: SODIUM CHLORIDE 1,000 MG TAB PO SCH ×2 (07:44→18:46)
--- NOTE | 2018-09-18 07:51 | SOAPPROG ---
SOAP Progress Note Assessment/Plan: Assessment/Plan: 83 yo F s/p mechanical fall closed left distal radius fracture s/p ORIF of left distal radius fracture, POD#8 -Cont PT/OT, pt will remain NWB of LUE, ok for light finger ROM, remain in postop splint at all times -Cont current pain regimen until then, encourage PO as tolerated, caution for confusion/agitation -Ice prn -Cont SCDs and rec TEDs (if tolerated) for VTE mechanical prophylaxis -Cont Lovenox for VTE chemoprophylaxis per hospitalists -OK to d/c from ortho standpoint regarding LUE fractures, CM working on auth closed left proximal humerus fracture -Cont PT/OT, pt will remain NWB of LUE, maintain sling at all times -Cont to monitor for removal of splint/sling -Cont current pain regimen until then, encourage PO as tolerated, caution for confusion/agitation -Ice prn -Cont SCDs and rec TEDs (if tolerated) for VTE mechanical prophylaxis -Cont Lovenox for VTE chemoprophylaxis per hospitalists -OK to d/c from ortho standpoint regarding LUE fractures, CM working on auth R hand III finger P2 fx, laceration -Cont care per Dr. Goldman Multiple C spine and T spine fractures -Cont care per neuro, TAPE DECK INSTALLER in place Pt is to follow up with Dr. Fam 10-14 days postoperatively in clinic, or sooner with any additional concerns or complaints. 09/18/18 07:48 09/18/18 09:42 Subjective: Pt seen at bedside today. She reports no significant pain in her LUE at this time, instead reporting the majority of her discomfort is in her neck and back. Per nursing report, she occasionally complains about LUE pain. She states that she has left her sling and postoperative splint in place. She notes her pain appears well controlled on her current pain regimen, and overall, that she is much improved since last week. She denies any new onset n/t, and states she is tolerating her medications well. She has no additional concerns or complaints at this time. I have discussed with TOM Macedo our continued concern for compliance with her orthopedic devices, and well as NWB status. These concerns have been previously relayed to CM who has passed them along to SNF for placement. No additional concerns or complaints overnight. Objective: Vital Signs Temp Pulse Resp BP Pulse Ox 36.6 C 62 18 144/66 H 98 09/18/18 07:32 09/18/18 07:32 09/18/18 07:32 09/18/18 07:32 09/18/18 07:32 Laboratory Results 09/13/18 14:10 09/17/18 05:08 09/17/18 09/18/18 09/19/18 05:59 05:59 05:59 Intake Total 945 1190 Output Total 450 1350 Balance 495 -160 PT 12.9 SEC (12.0-15.0) 09/02/18 18:56 INR 0.95 (0.83-1.16) 09/02/18 18:56 Patient seen at bedside. VSS, NAD, responding appropriately, less agitated. Exam of the left upper arm reveals mild ecchymosis, improving. Pt is slightly tender proximally without crepitus. Upper arm compartments are supple. Left wrist exam reveals postoperative splint in place. No surrounding erythema, calor, discharge or induration is noted. Forearm compartments are supple. Pt is able to flex/ext fingers without difficulty and make a light composite fist slightly limited by splint. Pt is intact to light touch sensation distally, as well as in the axillary, median, radial and ulnar nerve distribution. Capillary refill <2sec in the finger pulps, DNVI BUE. Exam of the BLE reveal NTTP of the posterior calves, no palpable vascular cords, neg Sumit's bilat. SCDs at bedside. No TEDs in place (ordered, but pt has been intolerant). DNVI BLE. ICD10 Worksheet Patient Problems: Problems Problem Status Onset Cervical spine fracture Acute Fall Acute Fracture of thoracic spine Acute Hand fracture Acute Hand laceration Acute Humeral surgical neck fracture Acute Hyponatremia Acute Wrist fracture Acute Epiglottitis Acute Esophagitis Acute GI bleed Acute Painful swallowing Acute
--- NOTE | 2018-09-18 09:21 | TRAUMAPN ---
Trauma Progress Note Assessment/Plan: 83 Y F s/p trip and fall on curb, C1-C2 fracture, thoracic fractures, L humeral neck and distal radial fractures, 3rd phalanx fracture and lac. In HIGH CLIMBER brace. s/p ORIF L distal radius. Continue splint with sling, NWB. Finger in splint, lac repaired. PT/OT. Seen c Dr. Zarate. Dispo: to SNF once arrangements made. S: no new complaints. O: alert, nad in HIGH CLIMBER brace. ctab anteriorly rrr abd soft, nt, +BS ext wwp, no edema Objective: Vital Signs Temp Pulse Resp BP Pulse Ox 36.6 C 62 18 144/66 H 98 09/18/18 07:32 09/18/18 07:32 09/18/18 07:32 09/18/18 07:32 09/18/18 07:32 Laboratory Results 09/13/18 14:10 09/17/18 05:08 09/17/18 09/18/18 09/19/18 05:59 05:59 05:59 Intake Total 945 1190 Output Total 450 1350 Balance 495 -160 PT 12.9 SEC (12.0-15.0) 09/02/18 18:56 INR 0.95 (0.83-1.16) 09/02/18 18:56 - C-Spine Clearance Cervical Spine Cleared: No
--- NOTE | 2018-09-18 09:41 | HOSPPROG ---
Hospitalist Progress Note Assessment/Plan: 82 yo F w mechanical fall, multiple fractures, hyponatremia. 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 -resumed salt tabs (bp remained high even without using them) # c spine fracture, posterior ring -placed hard collar #T6 burst fracture (non displaced T8 fracture and old T2 endplate fx) -brace #right 3rd digit phalanx fx w skin lac -sutures out in one week #uncontrolled htn -lisinopril, Tenormin doses increased -added Norvasc today w improvement #underweight w a BMI of 20 -calorie count -asked dietary to see -she says she can't eat #mouth pain -trial of Orajel #severe pain due to the above -pain is ongoing, added gabapentin scheduled helps but is too sedate this morning, will change this to QHS only #encephalopathy (toxic and metabolic) -rsolved #anemia -follow # dvt proph: -Lovenox #plan: awaiting placement, will check a chemistry panel in the a.m. Subjective: Smitha said she is having "crazy dreams" Objective: Vital Signs Temp Pulse Resp BP Pulse Ox 36.6 C 62 18 144/66 H 98 09/18/18 07:32 09/18/18 07:32 09/18/18 07:32 09/18/18 07:32 09/18/18 07:32 Laboratory Results 09/13/18 14:10 09/17/18 05:08 09/17/18 09/18/18 09/19/18 05:59 05:59 05:59 Intake Total 945 1190 Output Total 450 1350 Balance 495 -160 PT 12.9 SEC (12.0-15.0) 09/02/18 18:56 INR 0.95 (0.83-1.16) 09/02/18 18:56 - Physical Exam Constitutional: chronically ill appearing, other (thin) Eyes: PERRL Ears, Nose, Mouth, Throat: hearing normal Cardiovascular: regular rate and rhythym Respiratory: no respiratory distress, reduced air movement Skin: warm Musculoskeletal: generalized weakness Psychiatric: interacting appropriately ICD10 Worksheet Patient Problems: Problems Problem Status Onset Cervical spine fracture Acute Fall Acute Fracture of thoracic spine Acute Hand fracture Acute Hand laceration Acute Humeral surgical neck fracture Acute Hyponatremia Acute Wrist fracture Acute Epiglottitis Acute Esophagitis Acute GI bleed Acute Painful swallowing Acute
[2018-09-18] MEDS: LISINOPRIL 20 MG TAB PO SCH (10:00)
[2018-09-18] MEDS: CYANO/VITAMIN B12 1000 MCG TAB PO SCH (10:02)
[2018-09-18] MEDS: PANTOPRAZOLE SODIUM 40 MG TAB PO SCH (10:02)
[2018-09-18] MEDS: ENOXAPARIN 40 MG/0.4 ML SYR SC SCH (10:11)
[2018-09-18] MEDS: PATCH REMOVAL 1 EA PATCH TD SCH (10:20)
[2018-09-18] MEDS: ATENOLOL 50 MG TAB PO SCH (10:20)
--- NOTE | 2018-09-18 13:00 | SOAPPROG ---
SOAP Progress Note Assessment/Plan: Assessment: Doing fine. No c/o pain in left arm (shouldler nor wrist) Plan: If still in hospital on Tuesday will do routine post op visit then else she needs to be seen in office later this week or early next week for casting of left wrist and F/U films on L wrist and L proximal Humerus..Pain control. Encourage splint on L Wrist and Sling for L shoulder use as best possible. 09/10/18 13:33 09/10/18 16:01 09/11/18 07:53 09/18/18 13:00 Subjective: Im hallucinating due to the medications they have been giving me. Objective: Vital Signs Temp Pulse Resp BP Pulse Ox 36.9 C 60 16 114/55 L 93 09/18/18 12:10 09/18/18 12:10 09/18/18 12:10 09/18/18 12:10 09/18/18 12:10 Laboratory Results 09/13/18 14:10 09/17/18 05:08 09/17/18 09/18/18 09/19/18 05:59 05:59 05:59 Intake Total 945 1190 375 Output Total 450 1350 Balance 495 -160 375 PT 12.9 SEC (12.0-15.0) 09/02/18 18:56 INR 0.95 (0.83-1.16) 09/02/18 18:56 Comfortable and not complaining of any pain today. CSM remains intact in left hand. Post op splint in slight disarray but is still providing adequate support and limitations of left arm use. L Shoulder less sore and not painful with deep massage of deltoid today. ICD10 Worksheet Patient Problems: Problems Problem Status Onset Cervical spine fracture Acute Fall Acute Fracture of thoracic spine Acute Hand fracture Acute Hand laceration Acute Humeral surgical neck fracture Acute Hyponatremia Acute Wrist fracture Acute Epiglottitis Acute Esophagitis Acute GI bleed Acute Painful swallowing Acute
[2018-09-18] MEDS: SENNOSIDES/DOCUSATE SODIUM TAB PO SCH ×2 (13:32→21:50)
--- NOTE | 2018-09-18 14:00 | ASMTCMCOM ---
CM Note CM Note Notes: I spoke with both SNFs that patient has been referred to. Neither have received authorization from [facility]. Teo from [facility] reached out to patient's Nazario who would like patient to go to [facility] since they had already begun the auth process last week. I called and informed Yaneli at [facility] of the update. She will continue to be in touch with patient/family. Updated therapy notes sent to [facility]. CM will continue to follow. Current CM Discharge plan: [facility] Date Signed: 09/18/2018 01:59 PM Electronically Signed By:Lesley Barrera RN
[2018-09-18] MEDS: GABAPENTIN 100 MG CAP PO SCH (14:07)
[2018-09-18] MEDS ORDERED: GABAPENTIN 100 MG CAP PO SCH (21:00)
[2018-09-18] MEDS: OXYBUTYNIN CHLORIDE 5 MG TAB PO SCH (21:50)
[2018-09-18] MEDS: LIDOCAINE 4%/MENTHOL 1% PATCH TD SCH (22:07)
[2018-09-19] MEDS: ACETAMINOPHEN 500 MG TAB PO SCH ×2 (05:46→15:32)
--- NOTE | 2018-09-19 09:12 | SOAPPROG ---
SOAP Progress Note Assessment/Plan: Assessment/Plan: 83 yo F s/p mechanical fall closed left distal radius fracture s/p ORIF of left distal radius fracture, POD#9 -Cont PT/OT, pt will remain NWB of LUE, ok for light finger ROM, remain in postop splint at all times -Cont current pain regimen until then, encourage PO as tolerated, caution for confusion/agitation -Ice prn -Cont SCDs and rec TEDs (if tolerated) for VTE mechanical prophylaxis -Cont Lovenox for VTE chemoprophylaxis per hospitalists -OK to d/c from ortho standpoint regarding LUE fractures, CM working on auth, poss manorcare closed left proximal humerus fracture -Cont PT/OT, pt will remain NWB of LUE, maintain sling at all times -Cont to monitor for removal of splint/sling -Cont current pain regimen until then, encourage PO as tolerated, caution for confusion/agitation -Ice prn -Cont SCDs and rec TEDs (if tolerated) for VTE mechanical prophylaxis -Cont Lovenox for VTE chemoprophylaxis per hospitalists -OK to d/c from ortho standpoint regarding LUE fractures, CM working on auth, poss manorGreatist R hand III finger P2 fx, laceration -Cont care per Dr. 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 Fam 10-14 days postoperatively in clinic, or sooner with any additional concerns or complaints. 09/19/18 09:12 Subjective: Pt seen up in chair today. She reports no significant pain in her LUE at this time, instead reporting the majority of her discomfort is in her neck and back. Per nursing report, she occasionally complains about LUE pain. She states that she has left her sling and postoperative splint in place. She notes her pain appears well controlled on her current pain regimen, and overall, that she is much improved since last week. She denies any new onset n/t, and states she is tolerating her medications well. She has no additional concerns or complaints at this time. I have discussed with CM again the concern for maintaining her orthopedic devices on discharge. They note a likely d/c today to [facility] [place] Objective: Vital Signs Temp Pulse Resp BP Pulse Ox 36.8 C 65 16 120/58 L 90 L 09/19/18 08:00 09/19/18 08:00 09/19/18 08:00 09/19/18 08:00 09/19/18 08:00 Laboratory Results 09/13/18 14:10 09/19/18 05:44 09/18/18 09/19/18 09/20/18 05:59 05:59 05:59 Intake Total 1190 775 Output Total 1350 475 200 Balance -160 300 -200 PT 12.9 SEC (12.0-15.0) 09/02/18 18:56 INR 0.95 (0.83-1.16) 09/02/18 18:56 Patient seen up in chair. VSS, NAD, responding appropriately, less agitated. Exam of the left upper arm reveals mild ecchymosis, again improved. Pt is mildly TTP proximally without crepitus. Upper arm compartments are supple. Left wrist exam reveals postoperative splint in place. No surrounding erythema , calor, discharge or induration is noted. Forearm compartments are supple. Pt is able to flex/ext fingers without difficulty and make a light composite fist slightly limited by splint. Pt is intact to light touch sensation distally , as well as in the axillary, median, radial and ulnar nerve distribution. Capillary refill <2sec in the finger pulps, DNVI BUE. Exam of the BLE reveal NTTP of the posterior calves, no palpable vascular cords, neg Sumit's bilat. SCDs at bedside. No TEDs in place (ordered, but pt has been intolerant). DNVI BLE. ICD10 Worksheet Patient Problems: Problems Problem Status Onset Cervical spine fracture Acute Fall Acute Fracture of thoracic spine Acute Hand fracture Acute Hand laceration Acute Humeral surgical neck fracture Acute Hyponatremia Acute Wrist fracture Acute Epiglottitis Acute Esophagitis Acute GI bleed Acute Painful swallowing Acute
[2018-09-19] MEDS ORDERED: MAGNESIUM CITRATE 300 ML BOTTLE PO ONE (09:24)
--- NOTE | 2018-09-19 09:42 | TRAUMAPN ---
Trauma Progress Note Assessment/Plan: 09/19/2018 Assessment: 83 Y F s/p trip and fall on curb, C1-C2 fracture, thoracic fractures, L humeral neck and distal radial fractures, 3rd phalanx fracture and lac. In STEM ASSEMBLER brace and with Cervical collar. C-collar twisted off to left this morning. Patient only complains of neck pain. No stool for three days Na up to 129 Plan: Hard C-collar adjusted. Will add mag citrate. Hope to transfer to SNF soon. Fu with Neurosurgery in 2 weeks Fu with ortho later this week Continue Hard collar, STEM ASSEMBLER brace ( need clarification as to if the thoracic portion can be removed when she is in bed ), left arm sling Subjective: I have not moved my bowels in three days Objective: Vital Signs Temp Pulse Resp BP Pulse Ox 36.8 C 65 16 120/58 L 90 L 09/19/18 08:00 09/19/18 08:00 09/19/18 08:00 09/19/18 08:00 09/19/18 08:00 Laboratory Results 09/13/18 14:10 09/19/18 05:44 09/18/18 09/19/18 09/20/18 05:59 05:59 05:59 Intake Total 1190 775 Output Total 1350 475 200 Balance -160 300 -200 PT 12.9 SEC (12.0-15.0) 09/02/18 18:56 INR 0.95 (0.83-1.16) 09/02/18 18:56 - C-Spine Clearance Cervical Spine Cleared: No Physical Exam - Physical Exam General Appearance: WD/WN, alert, no apparent distress Neck: other (in mal-positioned c-collar (readjusted)) Respiratory: lungs clear, normal breath sounds Cardiac/Chest: regular rate, rhythm Abdomen: non-tender, soft, other (hypoactive bowel sounds) Pelvic Exam: deferred Rectal: deferred Skin: normal color, warm/dry Lymphatic: no adenopathy Extremities: other (Left arm in sling) Neuro/Psych: alert, normal mood/affect Time Spent w/Patient (minutes): 25
[2018-09-19] MEDS: PANTOPRAZOLE SODIUM 40 MG TAB PO SCH (10:37)
[2018-09-19] MEDS: SENNOSIDES/DOCUSATE SODIUM TAB PO SCH (10:40)
[2018-09-19] MEDS: LISINOPRIL 20 MG TAB PO SCH (10:40)
[2018-09-19] MEDS: PATCH REMOVAL 1 EA PATCH TD SCH (10:40)
[2018-09-19] MEDS: CYANO/VITAMIN B12 1000 MCG TAB PO SCH (10:41)
[2018-09-19] MEDS: ENOXAPARIN 40 MG/0.4 ML SYR SC SCH (10:41)
[2018-09-19] MEDS: ATENOLOL 50 MG TAB PO SCH (10:41)
[2018-09-19 10:42] VITALS: BP 146/57
--- NOTE | 2018-09-19 10:58 | PDIAF ---
- Diagnosis Diagnosis: s/p fall with multiple fractures Code Status: Full Code - Medication Management Custodial Antibiotic Stop Date: 09/13/18 Discharge Medications: electronically signed and located in the Home Medication List. - Orders Services needed: Registered Nurse, Physical Therapy, Occupational Therapy Diet Recommendation: no restrictions on diet Diet Texture: Regular Texture Diet Weigh Patient: weekly Brown: Not applicable Wound Care Instructions: keep LUE dry/change dressing right hand daily-apply silvasorb and cover with occlusive dressing/miki tape middle/index fingers for immobilization Activity/Weight Bearing Restrictions: non-weight bearing LUE Equipment: Cervical collar/ORACLE ANALYST brace Additional Instructions: Regarding Left Upper Extremity Fractures (Dr. Fam - [facility]): 1. The patient is to continue no weight bearing of her left arm and wrist. She is to avoid pushing, pulling, lifting, twisting and carrying activities using her left arm. She may move her fingers for light ROM activity. 2. The patient is to wear her postoperative splint on her left wrist at all times, and to cover this for showering purposes. She is to also continue wearing her sling and avoid any active motion of the left shoulder. 3. The patient is to use ice as needed for pain control, as well as an;y pain medication prescribed at her discharge as instructed. 4. The patient is to watch for signs of infection at her surgical site, including but not limited to: significant increases in pain or swelling, redness which extends beyond her splint or significant increases in warmth or drainage, as well as constitutional symptoms such as fevers, chills, nausea or vomiting. She is to notify the office immediately if any of these occur. 5. The patient is to Follow up in clinic with Dr. Fam in 10-12 days after her surgery on her left wrist, or sooner as needed for additional questions/ concerns which may arise. Please call our office at [phone] to schedule. Neurosurgery Discharge Instructions for Cervical Spine 1. Wear cervical hard collar at all times. Cervical Thoracic Orthotic to be worn around the clock. This brace was fit by [facility] 2. Avoid lifting more than 10 pounds. No driving 3. Follow up with Dr. Schmitz in 2-4 weeks with new C-spine x-rays. RIGHT middle finger laceration/fracture middle phalanx and distal tuft Sutures have been removed, treated topically w silvasorb daily dressing changes. This hand injury is being treated by Dr Goldman ([facility]) or Dr Meade - Labs/Radiology BMP Date: 09/14/18 - Follow Up Care Current Providers and Referrals: Patient,NotPresent [Primary Care Provider] - As per Instructions Yunior Schmitz MD [Medical Doctor] - (FU in 2-4 weeks) Javier Fam MD [Medical Doctor] - (Patient is to follow up 10-12 days after her surgery on her left wrist for repeat radiographs of the wrist and humerus. Please call the office as soon as possible to schedule this appointment) Lisa Goldman MD [Medical Doctor] - follow up in 2 weeks OFE ESQUIVEL [Medical Doctor] -
[2018-09-19] MEDS: SODIUM CHLORIDE 1,000 MG TAB PO SCH (11:08)
[2018-09-19] MEDS: METHOCARBAMOL 750 MG TAB PO PRN (11:09)
--- NOTE | 2018-09-19 12:59 | GDS ---
DISCHARGE DIAGNOSIS: Mechanical fall with multiple fractures and issues. HISTORY: The patient is an 83-year-old female, who fell when stepping off a curb. She has a closed left distal radius fracture. She underwent operative reduction and internal fixation and is postoperative day #9 at this point. She is nonweightbearing of that left upper extremity. The left closed proximal humerus fracture is being treated with a sling and nonweightbearing. (Dr. Fam is treating this) Her right hand 3rd digit has a P2 fracture and laceration. ( Dr. Goldman is treating this) There is a C1-C2 fracture, for which she is wearing a hard collar. There is posterior ring fracture of C1 and a type 3 fracture through the base of the dens with a 3 mm posterior displacement. There is a burst fracture of T6, but does not compress the cord. She is neurologically intact. She has an acute nondisplaced fracture of T8 with an old T2 endplate fracture. (Dr. Schmitz is treating this) She is deemed to be not a good patient for kyphoplasty and she is a poor candidate for invasive surgery, such as a fusion. DISPOSITION: She is to be transferred to the longterm facility. CONDITION: Fair. DIET RECOMMENDATIONS: There are no restrictions. She is to use a regular diet. HOME MEDICATIONS: (Please see transfer summary list). They included: 1. Tylenol 1000 mg every 8 hours. 2. Lidocaine 4% patch to her neck. 3. Robaxin 750 mg 3 times a day for spasm. 4. Zofran 4 mg a day for nausea and vomiting. 5. She will use polyethylene glycol (MiraLAX 17 g) daily as needed for constipation. 6. Senokot twice a day. 7. She will take a salt tablet 1000 mg twice a day. 8. Tramadol 50 mg q.6h. 9. Norvasc 2.5 mg daily. 10. Lovenox 40 mg x10 days. 11. Neurontin 100 mg p.o. at bedtime for 10 days. She will continue her: 1. Oxybutynin chloride 10 mg p.o. at bedtime. 2. Lactulose 20 mg daily. 3. Vitamin B12 daily. 4. Atenolol 25 mg daily. 5. Protonix 40 mg daily. 6. Ammonium lactate topically daily. DISCHARGE INSTRUCTIONS: 1. She is to follow up with Dr. Fam at [facility]. She is to continue nonweightbearing of the left arm and wrist. She is to avoid pulling, twisting, lifting and carrying, using her left arm. She will move her fingers for light range of motion activity. 2. The patient is to wear a postoperative splint on her left wrist at all times and may cover it for showering purposes. She is to continue wearing her sling and avoid any active motion of the left shoulder. She may use ice as needed for pain control. She is to watch for signs of infection at her surgical site, including, not limited to, increase in pain, swelling, redness and tenderness, extending beyond her splint or significant increase in warmth or drainage. As well as constitutional symptoms, such as fevers, chills, nausea , and vomiting. She is to notify Dr. Fam's office immediately if any of these occur. She will follow up with Dr. Fam 10 days after her surgery (later this week) and will call the office to schedule. 3. Neurosurgery. Discharge instructions. She is to wear cervical hard collar at all times. Her cervical/thoracic brace is to be worn around the clock. She is to avoid lifting more than 10 pounds. She will follow up with Dr. Schmitz in 2-4 weeks. 4. The new C-spine series. Right middle finger laceration and middle phalanx distal fractures. The sutures have been removed and treated topically with SilvaSorb dressing changes daily. The hand injury is being treated by Dr. Goldman at [facility] with Dr. Meade. 5. Additional issues include hyponatremia. 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 She will resume her salt tabs. Her sodium at discharge is 129. Her hypertension has been controlled. She is underweight with a BMI of 20. She should be followed by Dietary. Her encephalopathy (toxic and metabolic ) is resolved. She will continue on the DVT prophylaxis for 10 days. HOSPITAL COURSE: The patient was admitted. There have been several attempts to discharge her over the interval, but there have been several issues, which have precluded that. Finally, all issues have been resolved. The designated longterm facility has accepted her and she is set for discharge. /[id number]/MODL MTDD
--- NOTE | 2018-09-19 14:37 | HOSPPROG ---
Hospitalist Progress Note Assessment/Plan: 82 yo F w mechanical fall, multiple fractures, hyponatremia. 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 -resumed salt tabs (bp remained high even without using them) # c spine fracture, posterior ring -placed hard collar #T6 burst fracture (non displaced T8 fracture and old T2 endplate fx) -brace #right 3rd digit phalanx fx w skin lac -sutures out in one week #uncontrolled htn -lisinopril, Tenormin doses increased -added Norvasc today w improvement #underweight w a BMI of 20 -calorie count -asked dietary to see -she says she can't eat #mouth pain -trial of Orajel #severe pain due to the above -pain is ongoing, added gabapentin scheduled helps but is too sedate this morning, will change this to QHS only #encephalopathy (toxic and metabolic) -rsolved #anemia -follow # dvt proph: -Lovenox #plan: DC to SNF today Subjective: Feeling ok. No specific issues. Objective: Vital Signs Temp Pulse Resp BP Pulse Ox 36.8 C 66 16 146/57 H 90 L 09/19/18 08:00 09/19/18 10:41 09/19/18 08:00 09/19/18 10:41 09/19/18 08:00 Laboratory Results 09/13/18 14:10 09/19/18 05:44 09/18/18 09/19/18 09/20/18 05:59 05:59 05:59 Intake Total 1190 775 Output Total 1350 475 200 Balance -160 300 -200 PT 12.9 SEC (12.0-15.0) 09/02/18 18:56 INR 0.95 (0.83-1.16) 09/02/18 18:56 - Physical Exam Constitutional: appears nourished, chronically ill appearing Eyes: PERRL, anicteric sclera Ears, Nose, Mouth, Throat: moist mucous membranes, hearing normal Cardiovascular: No JVD, No edema Respiratory: no respiratory distress, reduced air movement Gastrointestinal: No tenderness, No ascites Skin: warm, normal color Musculoskeletal: no joint effusions, generalized weakness Psychiatric: not anxious, not encephalopathic ICD10 Worksheet Patient Problems: Problems Problem Status Onset Epiglottitis Acute GI bleed Acute Hyponatremia Acute Painful swallowing Acute Esophagitis Acute Fall Acute Humeral surgical neck fracture Acute Cervical spine fracture Acute Wrist fracture Acute Hand laceration Acute Hand fracture Acute Fracture of thoracic spine Acute
--- NOTE | 2018-09-19 16:37 | ASMTLACE ---
LACE Length of stay for Answers: 14 days or more current admission Acuity / Level of Answers: Yes Care: Did the patient have an inpatient admission? Comorbidities - select Answers: Other Notes: HTN all that apply # of Emergency department Answers: 1-2 visits in the last 6 months Score: 12 Date Signed: 09/19/2018 04:36 PM Electronically Signed By:YANE Moreno
--- NOTE | 2018-09-19 16:42 | ASMTCMCOM ---
CM Note CM Note Notes: [facility] has obtained insurance auth and pt is medically stable for d/c. Orders sent in [employer]. Marbella updated pt . TOM Chua called report. Date Signed: 09/19/2018 04:41 PM Electronically Signed By:YANE Moreno
--- NOTE | 2018-09-20 09:09 | ASDISCHSUM ---
Discharge Information Plan Status:SNF Medically Cleared to Leave: Discharge Date:09/19/2018 03:40 PM CM D/C Disposition: ADT D/C Disposition:Retirement Facility Projected Discharge Date:09/05/2018 11:00 AM Transportation at D/C:ALS/BLS Discharge Delay Reason: Follow-Up Date:09/05/2018 11:00 AM Discharge Slot: Final Diagnosis: Placement Information Referral Type:*Snf/SNF Referral ID:[id number] Provider Name:[facility] Address 1:[address] Address 2: City:[place] Selection Factors: State:[place] Patient Contact Information Contact Name:NAV Relationship:Son Address:[address] City:[place] Alternate Phone: State/Zip Code:[place] [address] Email: Financial Information Financial Class:Medicare Primary Plan Desc:MEDICARE INPATIENT Primary Plan Number:[id number] Secondary Plan Desc:[facility] Secondary Plan Number:[id number] Assessment Information LACE LACE Length of stay for Answers: 14 days or more current admission Acuity / Level of Answers: Yes Care: Did the patient have an inpatient admission? Comorbidities - select Answers: Other Notes: HTN all that apply # of Emergency department Answers: 1-2 visits in the last 6 months Score: 12 Date Signed: 09/19/2018 04:36 PM Electronically Signed By:YANE Moreno [facility] CM Progress Note CM Note CM Note Notes: Chart reviewed. 82 year old female s/p fall admitted via ED for fall and subsequent fractures. PT and OT evaluations pending. HX of hypertension and hyponatremia. CM to follow for needs. Plan: TBD Date Signed: 09/03/2018 01:54 PM Electronically Signed By:Poornima Hinojosa RN [facility] CM Progress Note CM Note CM Note Notes: Pt does not qualify for [facility] inpatient rehab. Spoke with pt and son Jaya about SNF rec, choose [facility]. Referral sent in [employer]. Pt non-triggering PASRR completed. CM to follow. D/c plan of care: SNF, likely [facility]. Date Signed: 09/04/2018 11:26 AM Electronically Signed By:YANE Moreno [facility] CM Progress Note CM Note CM Note Notes: D/c plan remains [facility] SNF, updates sent in [employer] and [facility] updated. Pt likely d/c tomorrow. Date Signed: 09/07/2018 02:20 PM Electronically Signed By:YANE Moreno [facility] CM Progress Note CM Note CM Note Notes: Spoke landen Yung who visited with the patient today. Issa will call me this afternoon with the disposition regarding admit. CM will follow. Date Signed: 09/11/2018 12:28 PM Electronically Signed By:Malia Erickson LCSW [facility] CM Progress Note CM Note CM Note Notes: Spoke with AYLIN Regan for Dr. Knight who wanted us to communicate with [facility] about the need to watch patient and keep her compliant with her orthopedic braces as much as possible. Patient has been taking them off, chewing through her stitches, and removing supports when she is uncomfortable. Jass reports patient 's pain control is much better with Tramadol. The family has been somewhat upset thinking the hospital needs to watch her 04/04. Jass explained we are not set up to provide that kind of care. Spoke with Jayadrianne Yung to let them know they will need to be vigilant with keeping patient in her braces. Issa is discussing the issues with his clinical team and will get back to us. Anticipate patient will be ready to d/c tomorrow after neuro has seen the patient and cleared her. CM will follow. Date Signed: 09/11/2018 03:18 PM Electronically Signed By:Malia Erickson LCSW [facility] CM Progress Note CM Note CM Note Notes: Issa with [facility] on site to assess pt, will consult with his team on pt admit. Updates sent and Issa requests nursing notes which were sent [facility]. OMKAR to follow. Date Signed: 09/12/2018 11:11 AM Electronically Signed By:YANE Moreno [facility] OMKAR Progress Note CM Note OMKAR Note Notes: Pt insurance changed on the first to [employer]. [facility] currently working on getting insurance auth. OMKAR spoke with family ([place] [phone]) to obtain numbers from insurance card. CM provided to [facility]. OMKAR also spoke with pt's son Jaya to inform of updates. Plan: DC to [facility] pending insurance auth Date Signed: 09/14/2018 04:25 PM Electronically Signed By:JENIFFER Glasgow [facility] OMKAR Progress Note CM Note OMKAR Note Notes: [place] insurance auth did not come in by close of business yesterday, unlikely to receive over the weekend so pt likely here until at least Tuesday. Date Signed: 09/16/2018 08:44 AM Electronically Signed By:YANE Moreno [facility] OMKAR Progress Note CM Note CM Note Notes: Pts and son in law came in today and told CM they don't want pt to go to [facility] and that they want her to go to [facility], a SNF closer to her who lives in [place]. CM submit referral to [facility] and called Yaneli Valentin ([phone]) services coordinator to alert of information. CM also provided education that pt may be able to get transfered to [facility] from [facility]. At this time we are awaiting insurance Auth from [facility] for [facility]. CM to follow Plan: [facility] SNF vs [facility]? Date Signed: 09/17/2018 02:33 PM Electronically Signed By:JENIFFER Glasgow [facility] CM Progress Note CM Note CM Note Notes: I spoke with both SNFs that patient has been referred to. Neither have received authorization from [facility]. Teo from [facility] reached out to patient's Nazario who would like patient to go to [facility] since they had already begun the auth process last week. I called and informed Yaneli at [facility] of the update. She will continue to be in touch with patient/family. Updated therapy notes sent to [facility]. CM will continue to follow. Current CM Discharge plan: [facility] Date Signed: 09/18/2018 01:59 PM Electronically Signed By:Lesley Barrera RN [facility] CM Progress Note CM Note CM Note Notes: [facility] has obtained insurance auth and pt is medically stable for d/c. Orders sent in [employer]. Marbella updated pt . TOM Chua called report. Date Signed: 09/19/2018 04:41 PM Electronically Signed By:YANE Moreno Intervention Information
--- NOTE | 2018-09-27 21:36 | PQFORM ---
PHYSICIAN QUERY FORM Needs Your Response This query form is being sent to you to assure this patient record is coded properly. Please respond to the question below: TESTING DIRECTOR QUESTION: Dr Rojas Metabolic Encephalopathy was mentioned in the Progress Notes but was not mentioned in the Discharge Summary. Did this patient have Metabolic Encephalopathy ? __X_ Yes ___ No ___ Other (Please Specify ) ___ Unable to Determine Thank You Nanette [facility] INSTRUCTIONS FOR RESPONSE: Answer question by clicking on the "Edit Document" button. Move cursor to area below the stars. When complete, hit "Save." Click on the "Sign" button, then click "Sign" again. Type in your PIN and hit "Enter." MTDD
== END 2018-09-19 15:40 | DRG 510 ==
LOC: EDUNIT# → F3N 09-03 → F3E 09-04 13:45 → F3N 09-06 20:26
PROVIDERS: ADMIT Surgery; ATTEND Surgery
PROC: 0MS Bursae and Ligaments, Reposition (ICD-10-PCS; 2018-09-02)
PROC: 0XQ Anatomical Regions, Upper Extremities, Repair (ICD-10-PCS; 2018-09-02)
PROC: 0PSJ04Z Reposition Left Radius with Internal Fixation Device, Open Approach (ICD-10-PCS; principal; 2018-09-10 13:30)
DX: S52.502A Unspecified fracture of the lower end of left radius, initial encounter for closed fracture (principal); S12.030A Displaced posterior arch fracture of first cervical vertebra, initial encounter for closed fracture; S42.202A Unspecified fracture of upper end of left humerus, initial encounter for closed fracture; S22.051A Stable burst fracture of T5-T6 vertebra, initial encounter for closed fracture; S12.110A Anterior displaced Type II dens fracture, initial encounter for closed fracture; S22.069A Unspecified fracture of T7-T8 vertebra, initial encounter for closed fracture; S22.029 Unspecified fracture of second thoracic vertebra; S62.622A Displaced fracture of middle phalanx of right middle finger, initial encounter for closed fracture; G93.41 Metabolic encephalopathy; S61.411A Laceration without foreign body of right hand, initial encounter; W10.1XXA Fall (on)(from) sidewalk curb, initial encounter; Y92.480 Sidewalk as the place of occurrence of the external cause; E22.2 Syndrome of inappropriate secretion of antidiuretic hormone; I10 Essential (primary) hypertension; R63.6 Underweight; M25.561 Pain in right knee; Z87.19 Personal history of other diseases of the digestive system; Z68.20 Body mass index [BMI] 20.0-20.9, adult
CPT/HCPCS: 84484-PO; 92523-GN; 97110-GP; 97116-GP; 97161-GP; 97166-GO; 97530-GO; 97530-GP; 97535-GO; C1713; G8978-GP-CK; G8978-GP-CL; G8979-GP-CJ; G8979-GP-CK; G8987-GO-CM; G8988-GO-CK; G9168-GN-CL; G9169-GN-CK; J0690; J1100; J1170; J1650; J2060; J2270; J2370; J2405; J2704; J2780; J3010; L3925; Q9967

== ENCOUNTER 2018-11-28 12:14 | Emergency (ER) | payer OTHER ==
[2018-11-28 12:40] VITALS: BP 135/92
--- NOTE | 2018-11-28 13:24 | EDPHY ---
General Time Seen by Provider: 11/28/18 12:59 Narrative: CLINICAL IMPRESSION: Right knee pain, knee effusion ASSESSMENT/PLAN: 83-year-old female presents to the emergency department with 2 day of atraumatic right knee pain. Patient denies any injury, fall or prior fracture. She has no hip, upper leg, lower leg ankle or foot pain. Distal neurovascular exam intact. A moderate-sized joint effusion is appreciated with no erythema, warmth, or overlying sign of septic joint or cellulitis. No calf pain, erythema or warmth. No clinical suspicion for DVT. X-ray show degenerative changes specifically on the medial tibial plateau. Arthrocentesis was discussed and offered however patient has declined. Rice treatment reviewed and orthopedic follow-up recommended. Referrals given. Warning signs return to ED sooner outlined and discharge. DIFFERENTIAL DX: Differential includes but not limited to acute fracture, strain/sprain, joint dislocation, soft tissue contusion ED PROCEDURES: Patient will purchase a splint from [employer] and declined knee splint here ED COURSE: X-rays reviewed by myself with no evidence of acute fracture, degenerative changes noted. CHIEF COMPLAINT: Atraumatic right knee pain HPI: 83-year-old otherwise healthy female presents to the emergency department with complaints of atraumatic right knee pain for last 2 days. Patient reports she has been able to ambulate but with pain. No prior injury or surgery. No reports of upper leg, hip, lower leg ankle foot pain. No loss of sensation. No color change. No open wounds. No history of gout. Unsure if she has osteoporosis. PAST MEDICAL HISTORY: See nurse triage note Pertinent Past Surgical History: None reported Social History: Lives alone REVIEW OF SYSTEMS: All other systems negative Constitutional: No fever, no chills Musculoskeletal: No deformity, + joint pain Skin: No rashes, color change or open wounds. Neurological: No sensory loss or weakness. PHYSICAL EXAM: General Appearance: Alert, oriented, appropriate for age, cooperative, NAD, well hydrated, non-toxic appearing, VSS, no hypoxia. Neurological: Alert and oriented x 3, normal sensation extremities Skin: Warm, dry, no rashes, no nodules on palpation. Musculoskeletal: Obvious joint effusion to right knee. No overlying erythema or warmth to suggest septic joint. No reproducible popliteal pain, calf pain, erythema or warmth. Distal neurovascular exam intact. Normal range of motion of the hip without pain. Limited flexion due to pain. Ambulates with a limp. MEDICAL DECISION MAKING: Patient was seen independently. Secondary supervising physician at time of evaluation was Dr Lozano. Diagnosis: Right knee osteoarthritis with joint effusion . New, requires workup Summary: See assessment and plan for summary of ED visit Independent visualization of images, tracing, or specimens yes. Discussed patient with another provider: Radiology Patient Progress: Stable for discharge. - Diagnostics Imaging Results: Imaging Impressions Knee X-Ray 11/28/18 13:13 Impression: 1. Moderate tricompartmental osteoarthritis in the right knee worse in the lateral tibiofemoral compartment. 2. Chondrocalcinosis. 3. Moderate joint effusion. 4. Possible subacute lateral tibial plateau fracture. Consider additional MRI imaging if clinically indicated. Findings and recommendations discussed with Emergency Department physician, Fracisco Shabazz PA-C at 1426 hour, 11/28/2018. Final report concurs with initial preliminary interpretation. - History Smoking Status: Never smoked - Objective Vital Signs: Initial Vital Signs Temperature (C) 36.6 C 11/28/18 12:37 Heart Rate 84 11/28/18 12:37 Respiratory Rate 17 11/28/18 12:37 Blood Pressure 135/92 H 11/28/18 12:37 O2 Sat (%) 98 11/28/18 12:37 O2 Delivery Mode Room Air Allergies/Adverse Reactions: influenza virus vaccine, specific Allergy (Unknown, Verified 11/28/18 12:36) Home Medications: Medication Instructions Recorded NK [No Known Home Meds] 11/28/18 Departure - Departure Disposition: Home, Routine, Self-Care Clinical Impression: Osteoarthritis Qualifiers: Osteoarthritis location: knee Osteoarthritis type: unspecified Laterality: right Qualified Code(s): M17.11 - Unilateral primary osteoarthritis, right knee Condition: Good Instructions: Osteoarthritis (ED) Additional Instructions: DISCHARGE INSTRUCTIONS FROM YOUR DOCTOR THANK YOU FOR VISITING OUR EMERGENCY DEPARTMENT TODAY. YOU WERE TREATED BY A PHYSICIAN WINDOW CASER TODAY AND YOUR CASE WAS REVIEWED WITH OUR ED ATTENDING PHYSICIAN. PLEASE KEEP IN MIND THAT DISCHARGE FROM THE EMERGENCY DEPARTMENT DOES NOT MEAN THAT THERE IS NOTHING WRONG - IT SIMPLY MEANS THAT WE HAVE NOT IDENTIFIED AN EMERGENCY CONDITION THAT REQUIRES FURTHER EVALUATION OR TREATMENT IN THE HOSPITAL. YOU SHOULD ALWAYS PLAN TO FOLLOW UP WITH PRIMARY CARE FOR RE- EVALUATION OF YOUR CONDITION IN THE NEXT 2-3 DAYS. IF YOU HAVE BEEN REFERRED TO A SPECIALIST, PLEASE CALL SOON POSSIBLE (TODAY OR TOMORROW) TO SCHEDULE YOUR FOLLOW UP APPOINTMENT AT THE APPROPRIATE TIME. THE X-RAYS OF YOUR KNEE SHOW NO EVIDENCE OF ACUTE FRACTURE. ARTHRITIS CAN INTERMITTENTLY CAUSE SWELLING IN THE KNEE JOINT. REST AND ELEVATE THE AFFECTED EXTREMITY MUCH POSSIBLE. ICE THE AFFECTED AREAS 20 MIN ON, 20 MIN OFF FOR THE NEXT SEVERAL DAYS. PLEASE USE TYLENOL OR IBUPROFEN OVER THE COUNTER IN APPROPRIATE DOSES OUTLINED ON YOUR DISCHARGE PAPERS. TAKE IBUPROFEN WITH FOOD AND A LARGE GLASS OF WATER. DO NOT TAKE IBUPROFEN IF YOU ARE ON A BLOOD THINNING MEDICATION SUCH COUMADIN, XARELTO, WARFARIN, LOVENOX OR PLAVIX. AN ORTHOPEDIC REFERRAL WAS GIVEN TO USE IF NEEDED. RETURN TO ED FOR WORSENING PAIN , LOSS OF SENSATION TO LEG OR TOES, FEVER OR ANY OTHER CONCERN. PEOPLE PRESENT WITH ILLNESSES AND INJURIES IN DIFFERENT WAYS, AND IT IS ALWAYS POSSIBLE THAT WE HAVE MISSED SOMETHING. YOU MAY ALWAYS RETURN FOR RE-EVALUATION IF SYMPTOMS WORSEN OR IF THEY ARE NOT IMPROVING OR IF YOU DEVELOP NEW/DIFFERENT SYMPTOMS. AGAIN, THANK YOU FOR CHOOSING OUR EMERGENCY DEPARTMENT. WE HOPE THAT YOU FEEL BETTER. Referrals: OFE ESQUIVEL [Primary Care Provider] - As per Instructions Jluis Meade MD [Medical Doctor] - 2-3 days, if not improved
== END 2018-11-28 14:05 | disposition home or self-care (01) ==
DX: M17.11 Unilateral primary osteoarthritis, right knee (principal)

== ENCOUNTER 2019-01-14 11:34 | Observation (INO) | payer OTHER ==
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
[2019-01-14 12:19] LABS: PLATELET COUNT 323 10^3/uL (150-400)
[2019-01-14 12:35] LABS: CREATINE KINASE 295 IU/L (0-156)
[2019-01-14] MEDS ORDERED: ALBUTEROL 3 ML DEYVIAL IH PRN (14:26)
[2019-01-14] MEDS ORDERED: PROMETHAZINE HCL 25 MG/ML INJ IVP PRN (14:26)
[2019-01-14] MEDS ORDERED: NS 1,000 ML IV SCH (14:30)
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
--- NOTE | 2019-01-14 18:35 | GHP ---
[f rep st] HISTORY AND PHYSICAL DATE OF ADMISSION: 01/14/2019 CHIEF COMPLAINT: Found on the floor at home. HISTORY OF PRESENT ILLNESS: The patient is a pleasant 83-year-old female originally from [facility] with a past medical history of hypertension, who was reportedly found down on the floor at her home today. She lives with her son. However, her son had been traveling over the past week. There was no know n loss of consciousness. Family did feel like she was more confused than her baseline. At the time of my evaluation when the patient was out of the ER on the floor, she was alert and oriented to time and place. She does describe feeling more weak in her lower extremities. She was hospitalized in 2017 and was found to have a cervical spine fracture at that time. She wore a cervical collar she states for 3 months and is currently without any neck pain. By report, her sister in [facility] has been mailing her Ativan tablets to assist with sleep, and this is apparently the only medication she takes at the current time. PAST MEDICAL HISTORY: Hypertension, hyponatremia, recent admission in August 2018 for cervical spi ne fracture. PAST SURGICAL HISTORY: No known past surgeries. MEDICATIONS: Lorazepam. Of note, her discharge summary from August 2018 did reflect that she was on atenolol and amlodipine for hypertension, but it appears these have since been held. ALLERGIES: Influenza immunization. FAMILY HISTORY: Mother and father both , unknown causes. She has 2 living sons. SOCIAL HISTORY: The patient lives with her son. She is currently , but her currently resides in a jail facility locally. She is originally from [facility] and is a nonsmoker. REVIEW OF SYSTEMS: CONSTITUTIONAL: No complaints of any fevers or chills. ENT: No recent upper re spiratory illnesses. CARDIOVASCULAR: No complaints of chest pains, palpitations or syncopal episode s. RESPIRATORY: No complaints of shortness of breath or productive cough. GI: No nausea, vomiting , diarrhea or constipation. : No reports of any difficulty with urination. NEUROLOGIC: No compl aints of any headaches. She does state progressive weakness of her lower extremities. HEMATOLOGIC: No history of any deep vein thrombosis or pulmonary embolism. PSYCHIATRIC: No history of anxiety o r depression. ENDOCRINE: No history of polyuria or heat intolerance. SKIN: No new skin rashes. M USCULOSKELETAL: Recent cervical spine fracture, for which she wore a cervical brace for 3 months. PHYSICAL EXAMINATION: VITAL SIGNS: Temperature 36.7, blood pressure 175/78, heart rate 94, respirat ions 16, satting 96% on room air. GENERAL: Patient appears comfortable. She is awake, alert, inter active. She was able to tell me that it was January 14, 2019, and that she was at [facility]. HEENT: Extraocular movements intact. No scleral icterus. NECK: Supple. No adenopathy. No thyroid enlargement. CHEST: Clear to auscultation with normal respiratory effort. HEART: Regular rate and rhythm. No murmurs appreciated. ABDOMEN: Soft, nontender, nondistended. : No Brown ca theter in place. EXTREMITIES: No significant pitting edema or calf pain with palpation. NEUROLOGIC : Cranial nerves 2-12 appear intact. 2+ patellar reflexes bilaterally. 4/5 strength of lower extre mities. LABORATORY DATA: White blood cell count 15, hemoglobin 11, platelets 323. Sodium 140, potassium 3.6 , chloride 105, bicarb 21, BUN 41, creatinine 0.6, glucose of 104. Troponin 0.00. Urinalysis showed negative leukocyte esterase and negative nitrite. CPK negative. IMAGING: CT scan of the head: No acute hemorrhage, hydrocephalus or mass effect. No definite acute infarct. Mild atrophy. Cervical spine CT: Subacute fractures of C1 and C2, T1, T2 and T4. ASSESSMENT AND PLAN: 1. Metabolic encephalopathy, possibly related to benzodiazepine use. She may also have had a fall p otentially, but history is uncertain. On my evaluation though, the patient seemed very clear and con versant. Speech therapy for cognitive assessment. 2. Cervical fractures, subacute. Patient wore a cervical brace for 3 months. She has had followup with Neurosurgery. Will see how she does with physical therapy/occupational therapy. If not doing w ell, consider MRI imaging and Neurosurgery consultation. 3. Leukocytosis. No obvious infection with the current workup. Monitor for fevers overnight. Reas sess again tomorrow morning. 4. Elevated BUN. Possibly hypovolemic related. IV fluids overnight and reassess tomorrow morning. 5. DVT prophylaxis. Lovenox. 6. Disposition: We will need to see how she does with PT/OT and assess for a safe place for dischar ge. Patient was living with son prior to admission. However, I believe she does have stretches of d ays at home by herself as her son does travel. /[id number]/MODL
[2019-01-15] MEDS: ACETAMINOPHEN 325 MG TAB PO PRN (02:48)
[2019-01-15 05:21] LABS: PLATELET COUNT 309 10^3/uL (150-400)
[2019-01-15] MEDS: MULTIVITAMINS 1 EACH TAB PO SCH (07:50)
[2019-01-15] MEDS: ENOXAPARIN 40 MG/0.4 ML SYR SC SCH (07:50)
[2019-01-15] MEDS ORDERED: POTASSIUM CL 20 MEQ/15 ML UDCUP PO ONE (12:28)
--- NOTE | 2019-01-15 12:33 | HOSPPROG ---
Hospitalist Progress Note Assessment/Plan: Patient is an 83-year-old female who is originally from [facility]. She was reportedly found down on the floor at her home today. She lives with her son that he has been traveling over the past week. She was hospitalized in August of 2018 and found to have a cervical spine fracture at that time. She wear cervical collar for 3 months. Her sister in [facility] has been mailing her Ativan tablets to help her with sleep. This is my 1st encounter with the patient. Chart reviewed. * acute metabolic encephalopathy -suspect this was related to benzodiazepine use -CT scan of the head shows nothing acute -I have cared for low [place] in the past. She is at her baseline -she is alert and oriented to place time and situation * subacute cervical fractures -she had worn a cervical brace for 3 month -will see how she does with physical therapy and occupational therapy -will ask neurosurgery to see to her to re-evaluate imaging done * hypokalemia -will give her dose of oral potassium now * leukocytosis -stable *anemia -follow *benzodiazepine use -will not resume -will monitor for any withdrawal symptoms * elevated BUN -likely due to dehydration * dispo. pending. Case Management actively involved. Spoke with the patient's . He lives in [place] in [place]. He told me that her son stopped staying with her because he thought once her brace was removed she did not need any further care. She is to high risk of being discharged back home alone. She will require another midnight stay to make sure she is stable and needs further evaluation of her imaging in regards to her past cervical fractures. Subjective: luis is not c/o pain. Objective: Vital Signs Temp Pulse Resp BP Pulse Ox 36.4 C 84 16 119/68 95 01/15/19 11:32 01/15/19 11:32 01/15/19 11:32 01/15/19 11:32 01/15/19 11:32 Laboratory Results 01/15/19 04:31 01/15/19 04:31 01/14/19 01/15/19 01/16/19 05:59 05:59 05:59 Intake Total 1000 Balance 1000 - Physical Exam Constitutional: chronically ill appearing Eyes: PERRL Ears, Nose, Mouth, Throat: hearing normal Cardiovascular: regular rate and rhythym Respiratory: no respiratory distress Skin: warm Musculoskeletal: generalized weakness (upper ext strength equal, lower ext weak , has difficulty w foot pull ups and push down) Neurologic: AAOx3 Psychiatric: interacting appropriately, not encephalopathic ICD10 Worksheet Patient Problems: Problems Problem Status Onset Encephalopathy acute Acute Weakness Acute Cervical spine fracture Acute Epiglottitis Acute Esophagitis Acute Fall Acute Fracture of thoracic spine Acute GI bleed Acute Hand fracture Acute Hand laceration Acute Humeral surgical neck fracture Acute Hyponatremia Acute Painful swallowing Acute Wrist fracture Acute
--- NOTE | 2019-01-15 16:24 | ASMTCMCOM ---
CM Note CM Note Notes: CM spoke with pt and Nazario at length. Despite previous records, Nazario reports that pt was living with her son Alvarado "who is sort of a hermit" after admission for cervical fracture, but once collar and brace were removed, Alvarado moved out of the home and pt has been living alone. Pt's other son Abdisa lives in [place] and checks on her periodically, but the Tuesday of the fall, Abdias was at the hospital with his father in law and was unable to check on mother. Nazario lives at [facility] near his son in [place] and would like for the pt to live with him. He moved from the home when his medical conditions became too much for the pt, but she did not want to leave their home in [place]. Per Nazario, Abdias is helpful to pt and would be the person to discuss future placement. Pt is clearly not safe to be living alone. CM left message for Abdias ([phone]). No response as of this note. Pt is still confused and neurological eval is being ordered by hospitalist as pt is very weak in bilat lower extremities. PT and OT are pending. CM to follow. D/C Plan: TBD Date Signed: 01/15/2019 04:23 PM Electronically Signed By:Sandrita Lundberg
--- NOTE | 2019-01-16 01:25 | GCON ---
[f rep st] CONSULTATION NEUROSURGICAL CONSULTATION Consultation requested by hospitalist to follow up cervical spine fractures. HISTORY OF PRESENT ILLNESS: The patient is an 83-year-old female who fell in August of 2018 and mendiola ffered a subacute C1 and C2 fractures with other thoracic spine fractures. She was followed by Dr. Zack wood in a hard cervical collar and was eventually clinically cleared out of the collar approximately 2 months ago. She was brought into the emergency department on 01/14/2019 after she was found down on the floor. She was admitted with metabolic encephalopathy by the hospitalist. A cervical spine C T was obtained at that time, which was stable in comparison to the previous study, but neurosurgical consultation was requested. She currently complains of very mild neck soreness. She denies any uppe r extremity radicular pain, weakness, or paresthesias. She denies any ataxia or bowel or bladder pro blems. PAST MEDICAL HISTORY: 1. Hypertension. 2. Hyponatremia. PAST SURGICAL HISTORY: None. MEDICATIONS PRIOR TO ADMISSION: Lorazepam, atenolol and amlodipine. ALLERGIES: Influenza vaccine. FAMILY HISTORY: Patient has no family history of spine problems. SOCIAL HISTORY: Patient is with grown children. Her is in a detention [facility] in [place]. She denies smoking, drinking, or drug use. REVIEW OF SYSTEMS: Negative. PHYSICAL EXAM: GENERAL: The patient is an 83-year-old female lying in bed, in no apparent distress. HEAD, EYES, EARS, NOSE, AND THROAT: Negative to drainage. EXTREMITIES: Artesian warm and dry. NEUROLOGICAL: Patient is awake, alert, oriented x4. Pupils equal, round, reactive to light. Extrao cular motions are intact. There is no evidence of facial droop. Tongue and uvula are midline. Spin al accessory muscles are intact. Her motor strength is 5/5 in her arms and legs. Her sensation is g rossly intact to light touch in her arms and legs. Deep tendon reflexes are 1+/4 in the bilateral bi ceps, triceps, brachioradialis, patellae, and Achilles. There is a negative Rohit with no clonus. DIAGNOSTIC STUDIES: A CT scan of the cervical spine without contrast on 01/14/2019 on the [facility] s ystem shows subacute fractures of C1 and C2 with a type III fracture through C2. This fracture does involve the bilateral pedicles. There is some trabeculation across these fracture lines and this is stable in comparison to the previous CT from August of 2018. There is also subacute compression fr actures of T1, T2 and T4, which are similar compared with the prior study. There is no evidence of a new acute cervical spine fracture. IMPRESSION: This is an 83-year-old female who has a subacute C1 and C2, as well as T1, T2 and T4 fra ctures after a fall in August of 2018. She was treated with a hard cervical collar and subsequentl y cleared. She was found down on the floor yesterday, but she is clinically stable with no evidence of a new fracture on her most recent imaging. PLAN: All the above discussed in detail with the patient. This patient was seen and examined with Gisel Thompson present. At this point in time, she does not have any radiographic or clinical evid ence of a new cervical spine fracture. She does not need a hard cervical collar. I would recommend that she work with Physical Therapy and Occupational Therapy while she is here at [facility]. She can follow up with Dr. Schmitz on an as-needed basis in the future. At this point in ti me, there is no acute neurosurgical issue and we will sign off. Please call with any questions. /[id number]/MODL
[2019-01-16] MEDS: MULTIVITAMINS 1 EACH TAB PO SCH (08:08)
[2019-01-16] MEDS: ENOXAPARIN 40 MG/0.4 ML SYR SC SCH (08:08)
[2019-01-16] MEDS: ACETAMINOPHEN 325 MG TAB PO PRN (09:52)
--- NOTE | 2019-01-16 14:48 | HOSPPROG ---
Hospitalist Progress Note Assessment/Plan: Patient is an 83-year-old female who is originally from [facility]. She was reportedly found down on the floor at her home today. She lives with her son that he has been traveling over the past week. She was hospitalized in August of 2018 and found to have a cervical spine fracture at that time. She wear cervical collar for 3 months. Her sister in [facility] has been mailing her Ativan tablets to help her with sleep. This is my 1st encounter with the patient. Chart reviewed. * acute metabolic encephalopathy -suspect this was related to benzodiazepine use -CT scan of the head shows nothing acute -She is at her baseline -she is alert and oriented to place time and situation * subacute cervical fractures -she had worn a cervical brace for 3 month -will see how she does with physical therapy and occupational therapy -appreciate neurosurgery evaluation * hypokalemia -stable * leukocytosis -stable *anemia -follow *benzodiazepine use -will not resume -will monitor for any withdrawal symptoms * elevated BUN -likely due to dehydration * dispo. pending. Case Management actively involved. Wants to be closer to who lives in [facility]. She is to high risk of being discharged back home alone. She needs SNF. Her hospital course should be inpt Subjective: Up in chair. Feels tired. Still some back pain. Objective: Vital Signs Temp Pulse Resp BP Pulse Ox 36.6 C 67 16 142/64 H 97 01/16/19 11:56 01/16/19 11:56 01/16/19 11:56 01/16/19 11:56 01/16/19 11:56 Laboratory Results 01/15/19 04:31 01/15/19 04:31 01/15/19 01/16/19 01/17/19 05:59 05:59 05:59 Intake Total 1000 1255 Output Total 475 Balance 1000 780 - Physical Exam Constitutional: chronically ill appearing, uncomfortable, cachectic Eyes: PERRL, anicteric sclera, EOMI Ears, Nose, Mouth, Throat: moist mucous membranes, hearing normal, ears appear normal Cardiovascular: No JVD, No tachycardia, No edema Respiratory: no respiratory distress, no rales or rhonchi, reduced air movement Gastrointestinal: normoactive bowel sounds, No tenderness, No ascites Skin: warm, normal color, No mottled Musculoskeletal: pain with ROM, muscular tenderness, generalized weakness Psychiatric: poor insight, poor judgement, poor memory ICD10 Worksheet Patient Problems: Problems Problem Status Onset Epiglottitis Acute GI bleed Acute Hyponatremia Acute Painful swallowing Acute Esophagitis Acute Fall Acute Humeral surgical neck fracture Acute Cervical spine fracture Acute Wrist fracture Acute Hand laceration Acute Hand fracture Acute Fracture of thoracic spine Acute Weakness Acute Encephalopathy acute Acute
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
[2019-01-17] MEDS: ACETAMINOPHEN 325 MG TAB PO PRN ×3 (03:28→20:03)
[2019-01-17] MEDS: ENOXAPARIN 40 MG/0.4 ML SYR SC SCH (09:34)
[2019-01-17] MEDS: MULTIVITAMINS 1 EACH TAB PO SCH (09:34)
--- NOTE | 2019-01-17 12:46 | HOSPPROG ---
Hospitalist Progress Note Assessment/Plan: Patient is an 83-year-old female who is originally from [facility]. She was reportedly found down on the floor at her home today. She lives with her son that he has been traveling over the past week. She was hospitalized in August of 2018 and found to have a cervical spine fracture at that time. She wear cervical collar for 3 months. Her sister in [facility] has been mailing her Ativan tablets to help her with sleep. * acute metabolic encephalopathy -resolved -suspect this was related to benzodiazepine use -CT scan of the head shows nothing acute -She is at her baseline -she is alert and oriented to place time and situation * subacute cervical fractures -she had worn a cervical brace for 3 month -will see how she does with physical therapy and occupational therapy -appreciate neurosurgery evaluation * hypokalemia -stable * leukocytosis -stable *anemia -follow *benzodiazepine use -will not resume -will monitor for any withdrawal symptoms * elevated BUN -likely due to dehydration * dispo. pending. Case Management actively involved. Wants to be closer to who lives in [facility]. She is to high risk of being discharged back home alone. She needs SNF. Her hospital course should be inpt Subjective: Up in chair. No specific complaints. Objective: Vital Signs Temp Pulse Resp BP Pulse Ox 36.5 C 69 16 166/87 H 95 01/17/19 08:58 01/17/19 08:58 01/17/19 08:58 01/17/19 08:58 01/17/19 08:58 Laboratory Results 01/15/19 04:31 01/15/19 04:31 01/16/19 01/17/19 01/18/19 05:59 05:59 05:59 Intake Total 1255 200 Output Total 855 675 Balance 780 -475 - Physical Exam Constitutional: appears nourished, chronically ill appearing Eyes: PERRL, anicteric sclera Ears, Nose, Mouth, Throat: moist mucous membranes, ears appear normal Cardiovascular: No JVD, No edema Respiratory: no respiratory distress, reduced air movement Gastrointestinal: No tenderness, No ascites Skin: warm, normal color Musculoskeletal: pain with ROM, generalized weakness Psychiatric: poor insight, poor judgement, poor memory ICD10 Worksheet Patient Problems: Problems Problem Status Onset Epiglottitis Acute GI bleed Acute Hyponatremia Acute Painful swallowing Acute Esophagitis Acute Fall Acute Humeral surgical neck fracture Acute Cervical spine fracture Acute Wrist fracture Acute Hand laceration Acute Hand fracture Acute Fracture of thoracic spine Acute Weakness Acute Encephalopathy acute Acute
--- NOTE | 2019-01-17 14:32 | ASMTCMCOM ---
CM Note CM Note Notes: CM spoke w/Renae, pt's DIL and pt's son Abdias by phone. SNF in [place] declined pt because they don't take pt's insurance. Abdias gave name of other SNF in [facility]. CM sent referral and they will pursue auth. DC Plan: SNF Date Signed: 01/17/2019 02:30 PM Electronically Signed By:Vidya Alicia RN
[2019-01-17] MEDS: LIDOCAINE 4%/MENTHOL 1% PATCH TD PRN (16:16)
[2019-01-17] MEDS: PATCH REMOVAL 1 EA PATCH TD SCH (21:58)
[2019-01-18] MEDS: ACETAMINOPHEN 325 MG TAB PO PRN ×3 (04:10→19:42)
--- NOTE | 2019-01-18 08:52 | HOSPPROG ---
Hospitalist Progress Note Assessment/Plan: Patient is an 83-year-old female who is originally from [facility]. She was reportedly found down on the floor at her home today. She lives with her son that he has been traveling over the past week. She was hospitalized in August of 2018 and found to have a cervical spine fracture at that time. She wear cervical collar for 3 months. Her sister in [facility] has been mailing her Ativan tablets to help her with sleep. * acute metabolic encephalopathy -resolved -suspect this was related to benzodiazepine use -CT scan of the head shows nothing acute -She is at her baseline -she is alert and oriented to place time and situation * subacute cervical fractures -she had worn a cervical brace for 3 month -will see how she does with physical therapy and occupational therapy -appreciate neurosurgery evaluation *HTN -mainly in the morning -add low dose Norvasc * hypokalemia -recent K was 3.1 * leukocytosis -stable *anemia -follow *benzodiazepine use -will not resume -will monitor for any withdrawal symptoms * elevated BUN -likely due to dehydration * dispo. [place] looking at placement possibly at [facility], she will be closer to her . Subjective: Smitha has no complaints. Objective: Vital Signs Temp Pulse Resp BP Pulse Ox 36.6 C 85 18 165/87 H 96 01/18/19 08:00 01/18/19 08:00 01/18/19 08:00 01/18/19 08:00 01/18/19 08:00 Laboratory Results 01/15/19 04:31 01/15/19 04:31 01/17/19 01/18/19 01/19/19 05:59 05:59 05:59 Intake Total 200 Output Total 675 Balance -475 - Physical Exam Constitutional: no apparent distress, other (thin) Eyes: PERRL Ears, Nose, Mouth, Throat: hearing normal Cardiovascular: regular rate and rhythym Respiratory: no respiratory distress Skin: warm Musculoskeletal: generalized weakness Neurologic: AAOx3 Psychiatric: interacting appropriately ICD10 Worksheet Patient Problems: Problems Problem Status Onset Encephalopathy acute Acute Weakness Acute Cervical spine fracture Acute Epiglottitis Acute Esophagitis Acute Fall Acute Fracture of thoracic spine Acute GI bleed Acute Hand fracture Acute Hand laceration Acute Humeral surgical neck fracture Acute Hyponatremia Acute Painful swallowing Acute Wrist fracture Acute
[2019-01-18] MEDS: MULTIVITAMINS 1 EACH TAB PO SCH (09:01)
[2019-01-18] MEDS: ENOXAPARIN 30 MG/0.3 ML SYR SC SCH (09:01)
--- NOTE | 2019-01-18 11:18 | WOCRNPDOC ---
WOCRN Advanced Assessment Note - Skin Integrity Problem, Advanced Assess Coccyx Pressure Injury Dressing Type: Allevyn Life Dressing Description: Clean/Dry, Intact Exudate Amount: None Integumentary Issue Intervention: Dressing Removed Wound Bed Constitution: Red/Maypearl - Non Granular Tissue (100%) Wound Edges: Attached Site Measurement - Head-to-Toe Length X Width X Depth (cm): 1x1x0.1 Pressure Injury Stage: Stage 2 Pressure Injury Present on Admit: No Skin Integrity Problem Comment: Education with patient re: offloading and pressure injury prevention and care. Reported to Cornelia SANTOS. Wound care will follow.
--- NOTE | 2019-01-18 11:35 | ASMTCMCOM ---
CM Note CM Note Notes: Angelito Morris from [employer] [phone] here to meet with pt today. CM gave print out of SLUMS for her report, today pt scored 15/30, better than initial but still in dementia range. DC Plan: [facility] Date Signed: 01/18/2019 11:33 AM Electronically Signed By:Vidya Alicia RN
[2019-01-18] MEDS: LIDOCAINE 4%/MENTHOL 1% PATCH TD PRN (19:41)
[2019-01-18] MEDS: PATCH REMOVAL 1 EA PATCH TD SCH (19:43)
[2019-01-19 08:06] VITALS: BP 174/92
--- NOTE | 2019-01-19 08:25 | HOSPPROG ---
Hospitalist Progress Note Assessment/Plan: Patient is an 83-year-old female who is originally from [facility]. She was reportedly found down on the floor at her home. * acute metabolic encephalopathy -resolved -likely was related to benzodiazepine use -She is at her baseline * subacute cervical fractures -she had worn a cervical brace for 3 month -appreciate neurosurgery evaluation *HTN -mainly in the morning -low dose Norvasc has helped * hypokalemia -resolved * leukocytosis -stable *anemia -stable *benzodiazepine use -will not resume -no withdrawal symptoms * dispo. CM looking at placement possibly at [facility] Subjective: Smitha is feeling fine. Objective: Vital Signs Temp Pulse Resp BP Pulse Ox 36.7 C 81 18 174/92 H 95 01/19/19 08:03 01/19/19 08:03 01/19/19 08:03 01/19/19 08:03 01/19/19 08:03 Laboratory Results 01/15/19 04:31 01/19/19 04:46 - Physical Exam Constitutional: no apparent distress, other (thin) Eyes: PERRL Ears, Nose, Mouth, Throat: hearing normal Cardiovascular: regular rate and rhythym Respiratory: no respiratory distress, reduced air movement Skin: warm Musculoskeletal: generalized weakness Neurologic: AAOx3 Psychiatric: interacting appropriately ICD10 Worksheet Patient Problems: Problems Problem Status Onset Encephalopathy acute Acute Weakness Acute Cervical spine fracture Acute Epiglottitis Acute Esophagitis Acute Fall Acute Fracture of thoracic spine Acute GI bleed Acute Hand fracture Acute Hand laceration Acute Humeral surgical neck fracture Acute Hyponatremia Acute Painful swallowing Acute Wrist fracture Acute
[2019-01-19] MEDS: MULTIVITAMINS 1 EACH TAB PO SCH (09:52)
[2019-01-19] MEDS: ENOXAPARIN 30 MG/0.3 ML SYR SC SCH (09:52)
[2019-01-19] MEDS: ACETAMINOPHEN 325 MG TAB PO PRN (09:52)
--- NOTE | 2019-01-19 11:01 | PDIAF ---
- Diagnosis Diagnosis: acute metabolic encephalopathy, subacute cervical fx Code Status: Full Code - Medication Management Discharge Medications: electronically signed and located in the Home Medication List. - Orders Services needed: Physical Therapy, Occupational Therapy Diet Recommendation: no restrictions on diet Diet Texture: Regular Texture Diet Additional Instructions: You have a stage 2 pressure injury (also known as a bedsore) on the very lowest part of your back (the sacrum). On your tailbone (coccyx). To help heal this/these wound/s and avoid further injury please do the following: Reposition yourself frequently, at least every 15 minutes when sitting. Try to stand for at least 3 min every hour so that the tissues fully re-perfuse with blood. We recommend sitting on an air cushion. Please never use a doughnut. When youre in bed, try to rest on your side as much as possible, and change position every two hours (for example, turn or tilt from your right side toward your left).~ If you sleep on a sleep number or medical bed, keep the head of the bed below 30 degrees and keep all pressure off your low back for at least 5 minutes at least every two hours.~ As needed, you may use Calazime, dimethicone moisture barrier cream, or any [id number] diaper rash cream to help prevent/treat a moisture-related rash to your bottom area and buttocks. Please contact [facility] outpatient [facility] for an appointment, at , for follow up within 2-3 weeks if you have issues or your wound does not heal. Change dressings to coccyx every 3 days and prn. 1. Clean with ns and gauze 2. Wound gel to wound bed 3. Cover with Mepilex border Sacral dressing Vicki Torab CWON Do not resume Ativan, it causes increase risk of falling. - Follow Up Care Current Providers and Referrals: Patient,NotPresent [Unknown] - As per Instructions
--- NOTE | 2019-01-19 11:09 | ASMTCMCOM ---
CM Note CM Note Notes: Pt being discharged today to [facility] in [place]. CM arranging transportation via [facility] stretcher (due to Pt's dementia). CM notified via phone, and LM for son Abdias. D/C documents sent to Yaneli at [facility]. Date Signed: 01/19/2019 11:08 AM Electronically Signed By:Thi Schaffer
--- NOTE | 2019-01-19 11:11 | ASMTLACE ---
ARICE Length of stay for Answers: 4-6 days current admission Acuity / Level of Answers: Yes Care: Did the patient have an inpatient admission? Comorbidities - select Answers: History of falls all that apply Other Notes: HTN, hyponatremia, duod ted l ulcer, epiglottitis # of Emergency department Answers: 3-4 visits in the last 6 months Score: 14 Date Signed: 01/19/2019 11:10 AM Electronically Signed By:Thi Schaffer
--- NOTE | 2019-01-19 12:12 | GDS ---
[f rep st] DISCHARGE SUMMARY DISCHARGE DIAGNOSES: 1. Acute metabolic encephalopathy. 2. Subacute cervical fractures. 3. Hypertension. 4. Hypokalemia. 5. Leukocytosis. 6. Anemia. 7. Benzodiazepine use. CONSULTATION: AYLIN Evans, with neurosurgical services. Briefly, the patient is a very sweet 83-year-old female who is originally from [facility]. She has a past medical history of hypertension, who was reportedly found down on her floor at home. She lives with her son. Her son has been traveling. The family did not feel that she was actually more confused than her baseline. Of note, she has been wearing a C-collar for the last 3 months and does not need it any further. She has been using benzodiazepine that her sister sent from [facility] sent her to help her sleep at night. This was discontinued during her hospital stay. HOSPITAL COURSE PER PROBLEM: 1. Acute encephalopathy. This has resolved. She is alert and oriented, very cooperative. 2. Subacute cervical fractures. She was evaluated by Neurosurgery. No further concerns. 3. Hypertension. Added low-dose Norvasc with improvement. 4. Hypokalemia, resolved. 5. Leukocytosis, stable. 6. Anemia, stable. 7. Benzodiazepine use. No signs or symptoms of withdrawal. DISCHARGE CONDITION: Stable. Blood pressure is 174/92, heart rate of 81, respiratory rate of 18, O2 sats on room air 95%. Temperature is 36.7 Celsius. MEDICATIONS AT DISCHARGE: Please see the EMR. DISCHARGE INSTRUCTIONS: 1. She has a stage 2 pressure injury. Detailed instructions have been written out for the [facility] facility to take care of. 2. Do not resume Ativan. She has an increased risk of falling with this medication. Greater than 30 minutes discharging and coordinating the patient's care. /[id number]/MODL MTDD
--- NOTE | 2019-01-19 12:15 | ASMTDCNOTE ---
Case Management Discharge Discharge Order Complete? Answers: Yes Patient to Obtain Answers: Other Notes: [facility] Medications Transportation Arranged Answers: [facility] Stretcher Transport will Pick (Date 01/19/2019 02:30 PM & Time) Case Management Transport Answers: Yes Form Complete Faxed Final Orders Answers: Yes Agency/Facility Transfer Answers: Yes Report Printed & Faxed to Receiving Agency Family Notified Answers: Yes Discharge Comments Notes: D/w [employer], final orders faxed Yaneli at [facility] TOM espino to call report. Date Signed: 01/19/2019 12:14 PM Electronically Signed By:Vidya Alicia RN
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
== END 2019-01-19 13:59 ==
LOC: EDUNIT# → F3E 13:59
PROVIDERS: ADMIT Internal Medicine; ATTEND Internal Medicine
DX: G93.41 Metabolic encephalopathy (principal); I10 Essential (primary) hypertension; E87.6 Hypokalemia; D64.9 Anemia, unspecified; S12.9XXD Fracture of neck, unspecified, subsequent encounter; W19.XXXD Unspecified fall, subsequent encounter; L89.152 Pressure ulcer of sacral region, stage 2
CPT/HCPCS: 70450; 72125; 92507; 92523; 96372; 97116; 97162; 97166; 97530; 97535; 99285; G0378; J1650; 82435-PO; 82565-PO; 82947-PO; 84132-PO; 84295-PO; 84484-ER; 84520-PO; 85014-ER; G0390; G0480